=== PATIENT | male | born 1995 | race African-American/Black ===

== ENCOUNTER 2020-11-30 04:30 | Inpatient (IN) | payer OTHER, MEDICAID, SELFPAY ==
--- NOTE | 2020-11-30 06:38 | ED.PSYCH ---
HPI - Psych General Chief Complaint: Psychiatric Symptoms <Francisco Silva MD - Last Filed: 11/30/20 06:48> Stated Complaint: CRISIS <Francisco Silva MD - Last Filed: 11/30/20 06:48> Time Seen by Provider: 11/30/20 06:38 <Francisco Silva MD - Last Filed: 11/30/20 06:48> Source: patient <Francisco Silva MD - Last Filed: 11/30/20 06:48> Mode of arrival: EMS <Francisco Silva MD - Last Filed: 11/30/20 06:48> Limitations: no limitations <Francisco Silva MD - Last Filed: 11/30/20 06:48> History of Present Illness HPI Narrative: Patient feeling increasingly manic and had an outburst and started breaking things at home. Denies suicidal ideation, denies homicidal ideation, no visual or auditory hallucinations. Patient has a diagnosis of bipolar and has been admitted before. <Francisco Silva MD - Last Filed: 11/30/20 06:48> MD complaint: feels depressed <Francisco Silva MD - Last Filed: 11/30/20 06:48> Onset (ago): day(s) <Francisco Silva MD - Last Filed: 11/30/20 06:48> Duration: constant <Francisco Silva MD - Last Filed: 11/30/20 06:48> History of same: Yes <Francisco Silva MD - Last Filed: 11/30/20 06:48> Related Data Home Medications: Home Medications Medication Instructions Recorded Confirmed clonidine HCl 0.1 mg PO BEDTIME PRN 11/30/20 11/30/20 divalproex [Depakote ER] 500 mg PO BID 11/30/20 11/30/20 hydroxyzine HCl 25 mg PO BEDTIME PRN 11/30/20 11/30/20 risperidone 0.5 mg PO BID 11/30/20 11/30/20 <Francisco Silva MD - Last Filed: 11/30/20 06:48> Allergies/Adverse Reactions: Allergies Allergy/AdvReac Type Severity Reaction Status Date / Time egg [EGG] AdvReac Mild UPSET Verified 11/30/20 06:46 STOMACH <Francisco Silva MD - Last Filed: 11/30/20 06:48> Review of Systems Constitutional: Constitutional: Reports no additional constitutional complaints <Francisco Silva MD - Last Filed: 11/30/20 06:48> Eyes: Eyes: Reports no additional eye complaints <Francisco Silva MD - Last Filed: 11/30/20 06:48> ENT: Denies dizziness <Francisco Silva MD - Last Filed: 11/30/20 06:48> Cardiovascular: Cardiovascular: Reports no additional cardiovascular complaints <Francisco Silva MD - Last Filed: 11/30/20 06:48> Respiratory: Respiratory: Reports as per HPI <Francisco Silva MD - Last Filed: 11/30/20 06:48> Gastrointestinal: Gastrointestinal: Reports no additional gastrointestinal complaints <Francisco Silva MD - Last Filed: 11/30/20 06:48> Musculoskeletal: Musculoskeletal: Reports no additional musculoskeletal complaints <Francisco Silva MD - Last Filed: 11/30/20 06:48> Integumentary/Breasts: Skin/Breast: Denies rash <Francisco Silva MD - Last Filed: 11/30/20 06:48> Neurologic: Reports system reviewed and no additional complaints, except as documented, Denies dizziness and Denies Sensory deficit (Neuro) <Francisco Silva MD - Last Filed: 11/30/20 06:48> Psychiatric: Psychiatric: Denies anxiety <Francisco Silva MD - Last Filed: 11/30/20 06:48> [facility] Past Medical History Medical History: Medical History (Updated 11/30/20 @ 06:47 by Maris Hogan) Asthma Bipolar 1 disorder <Francisco Silva MD - Last Filed: 11/30/20 06:48> Surgical History: Surgical History (Updated 11/30/20 @ 06:45 by Maris Hogan) No significant past surgical history <Francisco Silva MD - Last Filed: 11/30/20 06:48> Social History Social History: Social History Alcohol intake: never Smoking Status: Never smoker Use of substances other than those prescribed or required for medical reasons: Yes Substance Use Type: Crack/Cocaine and Marijuana Substance Use Frequency: Occasionally Last Used Substance: Days (ago) Any prior treatment program specific to substance use: No Advance Directives: No <Francisco Silva MD - Last Filed: 11/30/20 06:48> Physical Exam Vital Signs: Vital Signs: Last Vital Signs Temp 97.8 F 12/01/20 08:26 Pulse 85 12/01/20 08:26 Resp 18 12/01/20 06:43 BP 140/89 H 12/01/20 08:26 Pulse Ox 98 12/01/20 08:26 Body Mass Index 27.1 <Francisco Silva MD - Last Filed: 11/30/20 06:48> Vital Signs: Last Vital Signs Temp 97.8 F 12/01/20 08:26 Pulse 85 12/01/20 08:26 Resp 18 12/01/20 06:43 BP 140/89 H 12/01/20 08:26 Pulse Ox 98 12/01/20 08:26 Body Mass Index 27.1 <Clive Dye NP - Last Filed: 12/01/20 08:34> Const: General: healthy appearing <Francisco Silva MD - Last Filed: 11/30/20 06:48> Nutritional Appearance: average body habitus <Francisco Silva MD - Last Filed: 11/30/20 06:48> Orientation/consciousness: oriented to person and patient oriented x3 <Francisco Silva MD - Last Filed: 11/30/20 06:48> Limitations: no limitations <Francisco Silva MD - Last Filed: 11/30/20 06:48> HENMT: Head: Yes normal to inspection <Francisco Silva MD - Last Filed: 11/30/20 06:48> Ears: external ears normal <Francisco Silva MD - Last Filed: 11/30/20 06:48> General nose exam: Normal external nose present <Francisco Silva MD - Last Filed: 11/30/20 06:48> Mouth: Normal oral and palatal mucosa present and oropharynx normal <Francisco Silva MD - Last Filed: 11/30/20 06:48> Throat: Yes posterior oropharynx normal <Francisco Silva MD - Last Filed: 11/30/20 06:48> Eyes: General: appearance normal, both eyes and all related structures <Francisco Silva MD - Last Filed: 11/30/20 06:48> Neck: Other: supple <Francisco Silva MD - Last Filed: 11/30/20 06:48> Neck: Yes normal visual inspection <Francisco Silva MD - Last Filed: 11/30/20 06:48> Chest: Chest palpation & inspection: normal inspection of the chest <Francisco Silva MD - Last Filed: 11/30/20 06:48> Resp: Auscultation: clear to auscultation bilaterally <Francisco Silva MD - Last Filed: 11/30/20 06:48> Cardio: Jugular venous distension: no JVD <Francisco Silva MD - Last Filed: 11/30/20 06:48> Rate: regular rate <Francisco Silva MD - Last Filed: 11/30/20 06:48> Rhythm: regular rhythm <Francisco Silva MD - Last Filed: 11/30/20 06:48> Heart sounds: S1 normal heart sound present and S2 normal heart sound present <Francisco Silva MD - Last Filed: 11/30/20 06:48> GI: Inspection: Yes normal to inspection <Francisco Silva MD - Last Filed: 11/30/20 06:48> Palpation (GI): Soft to palpation, nontender and No hepatosplenomegaly present <Francisco Silva MD - Last Filed: 11/30/20 06:48> Auscultation: normal bowel sounds <Francisco Silva MD - Last Filed: 11/30/20 06:48> : General: Yes no CVA tenderness <Francisco Silva MD - Last Filed: 11/30/20 06:48> Back/Spine/Pelvis: Back: no CVA tenderness <Francisco Silva MD - Last Filed: 11/30/20 06:48> Skin: General skin exam: no rashes or lesions noted <Francisco Silva MD - Last Filed: 11/30/20 06:48> Neuro: General: oriented to person and patient oriented x3 <Francisco Silva MD - Last Filed: 11/30/20 06:48> Cranial nerves: Yes CN's II-XII intact bilaterally <Francisco Silva MD - Last Filed: 11/30/20 06:48> Motor exam (neuro): 5/5 motor strength present throughout <Francisco Silva MD - Last Filed: 11/30/20 06:48> Sensory Exam: No Sensory deficit (Neuro) <Francisco Silva MD - Last Filed: 11/30/20 06:48> Extrem: General: Yes normal to inspection <Francisco Silva MD - Last Filed: 11/30/20 06:48> Psych: Appearance: grossly normal <Francisco Silva MD - Last Filed: 11/30/20 06:48> Course Course Course Narrative: 12/01/2020 0832 Slept over night w/o event up this morning eating breakfast w/o complaints. Plan: bed search remains in progress <Clive Dye NP - Last Filed: 12/01/20 08:34> MDM - Psych Restraints Face to Face Assessment: Face to Face Assessment: Current Situation: After assessment of the patient, a review of the pertinent medical record and a discussion with nursing staff, I feel the patient requires a restrain intervention. Reaction To: [] Medical Condition: [] Behavioral State: [] Continued Need: [] <Francisco Silva MD - Last Filed: 11/30/20 06:48> Lab Data Result diagrams: : 11/30/20 08:43 11/30/20 08:43 <Francisco Silva MD - Last Filed: 11/30/20 06:48> Labs: Lab Results 11/30/20 11/30/20 11/30/20 Range/Units 06:49 08:43 08:43 WBC 9.5 (4.8-10.8) X10*3/uL RBC 5.44 (4.60-5.80) X10*6/uL Hgb 15.2 (14.0-18.0) g/dl Hct 44.2 (42-52) % MCV 81.3 (80-98) fL MCH 27.9 (27.0-33.0) pg MCHC 34.4 (31.0-36.0) g/dl RDW 13.2 (11.0-16.0) % Plt Count 220 (160-400) X10*3/uL MPV 10.6 (9.4-12.4) fL Immature Gran % (Auto) 0.3 (0.0-0.4) % Neut % (Auto) 61.2 (45-73) % Lymph % (Auto) 31.7 (20-40) % Starke % (Auto) 5.5 (2-11) % Eos % (Auto) 1.1 (0-4) % Baso % (Auto) 0.2 (0-2) % Lymph # (Auto) 3.0 (1.2-4.9) X10*3/uL Starke # (Auto) 0.5 (0.1-1.2) X10*3/uL Eos # (Auto) 0.1 (0.0-0.4) X10*3/uL Baso # (Auto) 0.0 (0.0-0.2) X10*3/uL Abs Immat Gran (auto) 0.03 (0.00-0.03) X10*3/uL Absolute Neuts (auto) 5.8 (2.0-8.3) X10*3/uL Absolute Nucleated RBC 0.000 (0.0-0.012) X10*3/uL Nucleated RBC % (auto) 0.0 (0.0-0.2) /100WBC Sodium 138 (135-145) mmol/L Potassium 4.1 (3.3-5.1) mmol/l Chloride 102 (96-108) mmol/L Carbon Dioxide 28 (22-29) mmol/L Anion Gap 12 (12-20) BUN 11 (9-16) mg/dL Creatinine 1.13 (0.5-1.4) mg/dL Estim Creat Clear Calc 111.5 Estimated GFR > 60 Random Glucose 111 (60-115) mg/dL Calcium 9.1 (8.4-10.2) mg/dL Salicylates (15-30) mg/dL Urine Opiates Screen Not Detected (Not Detect) Acetaminophen < 1 (<30) mcg/mL Ur Barbiturates Screen Not Detected (Not Detect) Ur Phencyclidine Scrn Not Detected (Not Detect) Ur Amphetamines Screen Not Detected (Not Detect) U Benzodiazepines Scrn Not Detected (Not Detect) Urine Cocaine Screen POSITIVE H (Not Detect) U Marijuana (THC) Screen POSITIVE H (Not Detect) Ethyl Alcohol mg/dL COVID-19 ([facility]) (Negative) COVID-19 Clin Com 11/30/20 11/30/20 11/30/20 Range/Units 08:43 08:43 11:52 WBC (4.8-10.8) X10*3/uL RBC (4.60-5.80) X10*6/uL Hgb (14.0-18.0) g/dl Hct (42-52) % MCV (80-98) fL MCH (27.0-33.0) pg MCHC (31.0-36.0) g/dl RDW (11.0-16.0) % Plt Count (160-400) X10*3/uL MPV (9.4-12.4) fL Immature Gran % (Auto) (0.0-0.4) % Neut % (Auto) (45-73) % Lymph % (Auto) (20-40) % Starke % (Auto) (2-11) % Eos % (Auto) (0-4) % Baso % (Auto) (0-2) % Lymph # (Auto) (1.2-4.9) X10*3/uL Starke # (Auto) (0.1-1.2) X10*3/uL Eos # (Auto) (0.0-0.4) X10*3/uL Baso # (Auto) (0.0-0.2) X10*3/uL Abs Immat Gran (auto) (0.00-0.03) X10*3/uL Absolute Neuts (auto) (2.0-8.3) X10*3/uL Absolute Nucleated RBC (0.0-0.012) X10*3/uL Nucleated RBC % (auto) (0.0-0.2) /100WBC Sodium (135-145) mmol/L Potassium (3.3-5.1) mmol/l Chloride (96-108) mmol/L Carbon Dioxide (22-29) mmol/L Anion Gap (12-20) BUN (9-16) mg/dL Creatinine (0.5-1.4) mg/dL Estim Creat Clear Calc Estimated GFR Random Glucose (60-115) mg/dL Calcium (8.4-10.2) mg/dL Salicylates < 5.0 L (15-30) mg/dL Urine Opiates Screen (Not Detect) Acetaminophen (<30) mcg/mL Ur Barbiturates Screen (Not Detect) Ur Phencyclidine Scrn (Not Detect) Ur Amphetamines Screen (Not Detect) U Benzodiazepines Scrn (Not Detect) Urine Cocaine Screen (Not Detect) U Marijuana (THC) Screen (Not Detect) Ethyl Alcohol < 10 mg/dL COVID-19 ([facility]) Negative (Negative) COVID-19 Clin Com See Note <Francisco Silva MD - Last Filed: 11/30/20 06:48> Lab Results 11/30/20 11/30/20 11/30/20 Range/Units 06:49 08:43 08:43 WBC 9.5 (4.8-10.8) X10*3/uL RBC 5.44 (4.60-5.80) X10*6/uL Hgb 15.2 (14.0-18.0) g/dl Hct 44.2 (42-52) % MCV 81.3 (80-98) fL MCH 27.9 (27.0-33.0) pg MCHC 34.4 (31.0-36.0) g/dl RDW 13.2 (11.0-16.0) % Plt Count 220 (160-400) X10*3/uL MPV 10.6 (9.4-12.4) fL Immature Gran % (Auto) 0.3 (0.0-0.4) % Neut % (Auto) 61.2 (45-73) % Lymph % (Auto) 31.7 (20-40) % Starke % (Auto) 5.5 (2-11) % Eos % (Auto) 1.1 (0-4) % Baso % (Auto) 0.2 (0-2) % Lymph # (Auto) 3.0 (1.2-4.9) X10*3/uL Starke # (Auto) 0.5 (0.1-1.2) X10*3/uL Eos # (Auto) 0.1 (0.0-0.4) X10*3/uL Baso # (Auto) 0.0 (0.0-0.2) X10*3/uL Abs Immat Gran (auto) 0.03 (0.00-0.03) X10*3/uL Absolute Neuts (auto) 5.8 (2.0-8.3) X10*3/uL Absolute Nucleated RBC 0.000 (0.0-0.012) X10*3/uL Nucleated RBC % (auto) 0.0 (0.0-0.2) /100WBC Sodium 138 (135-145) mmol/L Potassium 4.1 (3.3-5.1) mmol/l Chloride 102 (96-108) mmol/L Carbon Dioxide 28 (22-29) mmol/L Anion Gap 12 (12-20) BUN 11 (9-16) mg/dL Creatinine 1.13 (0.5-1.4) mg/dL Estim Creat Clear Calc 111.5 Estimated GFR > 60 Random Glucose 111 (60-115) mg/dL Calcium 9.1 (8.4-10.2) mg/dL Salicylates (15-30) mg/dL Urine Opiates Screen Not Detected (Not Detect) Acetaminophen < 1 (<30) mcg/mL Ur Barbiturates Screen Not Detected (Not Detect) Ur Phencyclidine Scrn Not Detected (Not Detect) Ur Amphetamines Screen Not Detected (Not Detect) U Benzodiazepines Scrn Not Detected (Not Detect) Urine Cocaine Screen POSITIVE H (Not Detect) U Marijuana (THC) Screen POSITIVE H (Not Detect) Ethyl Alcohol mg/dL COVID-19 ([facility]) (Negative) COVID-19 Clin Com 11/30/20 11/30/20 11/30/20 Range/Units 08:43 08:43 11:52 WBC (4.8-10.8) X10*3/uL RBC (4.60-5.80) X10*6/uL Hgb (14.0-18.0) g/dl Hct (42-52) % MCV (80-98) fL MCH (27.0-33.0) pg MCHC (31.0-36.0) g/dl RDW (11.0-16.0) % Plt Count (160-400) X10*3/uL MPV (9.4-12.4) fL Immature Gran % (Auto) (0.0-0.4) % Neut % (Auto) (45-73) % Lymph % (Auto) (20-40) % Starke % (Auto) (2-11) % Eos % (Auto) (0-4) % Baso % (Auto) (0-2) % Lymph # (Auto) (1.2-4.9) X10*3/uL Starke # (Auto) (0.1-1.2) X10*3/uL Eos # (Auto) (0.0-0.4) X10*3/uL Baso # (Auto) (0.0-0.2) X10*3/uL Abs Immat Gran (auto) (0.00-0.03) X10*3/uL Absolute Neuts (auto) (2.0-8.3) X10*3/uL Absolute Nucleated RBC (0.0-0.012) X10*3/uL Nucleated RBC % (auto) (0.0-0.2) /100WBC Sodium (135-145) mmol/L Potassium (3.3-5.1) mmol/l Chloride (96-108) mmol/L Carbon Dioxide (22-29) mmol/L Anion Gap (12-20) BUN (9-16) mg/dL Creatinine (0.5-1.4) mg/dL Estim Creat Clear Calc Estimated GFR Random Glucose (60-115) mg/dL Calcium (8.4-10.2) mg/dL Salicylates < 5.0 L (15-30) mg/dL Urine Opiates Screen (Not Detect) Acetaminophen (<30) mcg/mL Ur Barbiturates Screen (Not Detect) Ur Phencyclidine Scrn (Not Detect) Ur Amphetamines Screen (Not Detect) U Benzodiazepines Scrn (Not Detect) Urine Cocaine Screen (Not Detect) U Marijuana (THC) Screen (Not Detect) Ethyl Alcohol < 10 mg/dL COVID-19 ([facility]) Negative (Negative) COVID-19 Clin Com See Note <Clive Dye NP - Last Filed: 12/01/20 08:34> Discharge Plan Discharge Prescriptions: No Action clonidine HCl 0.1 mg Tablet 0.1 mg PO BEDTIME PRN (Reason: Agitation) RF: 0 divalproex [Depakote ER] 500 mg Tablet Extended Release 24 Hr 500 mg PO BID RF: 0 hydroxyzine HCl 25 mg Tablet 25 mg PO BEDTIME PRN (Reason: Agitation) RF: 0 risperidone 0.5 mg Tablet 0.5 mg PO BID RF: 0 <Francisco Silva MD - Last Filed: 11/30/20 06:48>
[2020-11-30 06:40] VITALS: BP 138/82; PULSE 91; RESP 16; TEMP 36.1; O2SAT 98; BMI 27.1
[2020-11-30 07:07] LABS: Amphetamine Screen Urine Not Detected (Not Detect); Barbiturates, Urine Not Detected (Not Detect); Benzodiazepines Screen Urine Not Detected (Not Detect); Cannabinoid Screen Urine POSITIVE (Not Detect); Cocaine Screen Urine POSITIVE (Not Detect); Opiate Screen Urine Not Detected (Not Detect); Phencyclidine Screen Urine Not Detected (Not Detect)
--- NOTE | 2020-11-30 08:27 | PC.NURSE ---
pt is engaged approp conversation with staff. he has eaten breakfast and is awaiting n
[2020-11-30 08:51] LABS: MANUAL DIFF FLAG NO
[2020-11-30 08:53] LABS: Basophils Percent Auto 0.2 % (0-2); Eosinophils Absolute Auto 0.1 X10*3/uL (0.0-0.4); Eosinophils Percent Auto 1.1 % (0-4); Hematocrit 44.2 % (42-52); Hemoglobin 15.2 g/dl (14.0-18.0); Imm Gran Abs Auto 0.03 X10*3/uL (0.00-0.03); Imm Gran Pct Auto 0.3 % (0.0-0.4); Lymphocytes Percent Auto 31.7 % (20-40); Mean Corpuscular HGB Conc 34.4 g/dl (31.0-36.0); Mean Corpuscular Hemoglobin 27.9 pg (27.0-33.0); Mean Corpuscular Volume 81.3 fL (80-98); Mean Platelet Volume 10.6 fL (9.4-12.4); Monocytes Absolute Auto 0.5 X10*3/uL (0.1-1.2); Monocytes Percent Auto 5.5 % (2-11); Neutrophils Absolute Auto 5.8 X10*3/uL (2.0-8.3); Neutrophils Percent Auto 61.2 % (45-73); Platelet Count 220 X10*3/uL (160-400); Red Blood Count 5.44 X10*6/uL (4.60-5.80); Red Cell Distribution Width 13.2 % (11.0-16.0); White Blood Count 9.5 X10*3/uL (4.8-10.8)
[2020-11-30 09:19] LABS: Ethanol < 10 mg/dL
[2020-11-30 09:22] LABS: Salicylate < 5.0 mg/dL (15-30)
[2020-11-30 09:23] LABS: Anion Gap 12 (12-20); Blood Urea Nitrogen 11 mg/dL (9-16); Calcium 9.1 mg/dL (8.4-10.2); Carbon Dioxide 28 mmol/L (22-29); Chloride 102 mmol/L (96-108); Creatinine Clr Calc Pharmacy 111.5; Estimated Glomerular Filt Rate > 60; Glucose Random 111 mg/dL (60-115); Potassium 4.1 mmol/l (3.3-5.1); Sodium 138 mmol/L (135-145)
[2020-11-30 09:53] LABS: Acetaminophen LAB < 1 mcg/mL (<30)
[2020-11-30 12:00] VITALS: RESP 16
--- NOTE | 2020-11-30 12:12 | MHC.CARE ---
Call to [facility], spoke to Koby, they are unaware of patient, advised CARE can see patient if they cannot. Julissa stated she when the fax comes he will be assigned. Spoke to RN, he said N did call and follow up with him about patient.
[2020-11-30 12:35] LABS: COVID-19 Test Negative (Negative)
[2020-11-30 14:00] VITALS: RESP 16
--- NOTE | 2020-11-30 16:31 | MHC.CARE ---
Call to N to ask about clinician availability for assessing this patient, said that none are available for some time so advised that a CARE human geography faculty member would meet with patient, N to call insurance company to notify and call us back. CARE Team met with patient and after speaking to family/partner and gathering additional information, the disposition will be for inpatient hospitalization. Spoke to RN about moving patient into POD, CARE Team will update patient.
[2020-11-30] MEDS: risperiDONE 0.5 MG TABLET PO ×2 (16:38→20:37)
[2020-11-30] MEDS: Divalproex Sodium ER 500 MG TAB.ER.24H PO ×2 (16:38→20:37)
--- NOTE | 2020-11-30 17:07 | PC.NURSE ---
Report recieved. Pt ambulated to pod with steady gait, denies complaints at this time.
--- NOTE | 2020-11-30 19:06 | PC.NURSE ---
Report received. PT is using the phone. Calm and cooperative. PT is inpatient bed search.
[2020-11-30] MEDS: hydrOXYzine HCL 25 MG TABLET PO (20:36)
[2020-11-30 20:37] VITALS: BP 141/91; PULSE 95
[2020-11-30] MEDS: cloNIDine HCL 0.1 MG TABLET PO (20:37)
--- NOTE | 2020-12-01 | ECG_ITS ---
Test Reason : CLEARANCE Blood Pressure : / mmHG Vent. Rate : 095 BPM Atrial Rate : 095 BPM P-R Int : 138 ms QRS Dur : 092 ms QT Int : 352 ms P-R-T Axes : 084 061 058 degrees QTc Int : 442 ms Normal sinus rhythm Possible Left atrial enlargement Borderline ECG When compared with ECG of 13-JUL-2020 14:46, No significant change was found Referred By: Alec Cabrera Electronically Signed By:LINDSEY HER
[2020-12-01] MEDS: Ibuprofen 400 MG TABLET PO (04:10)
[2020-12-01 06:09] VITALS: BP 136/85; PULSE 98; RESP 16; TEMP 36.6; O2SAT 100
[2020-12-01 06:43] VITALS: BP 131/67; PULSE 103; RESP 18; TEMP 36.3; O2SAT 94
--- NOTE | 2020-12-01 07:05 | PC.NURSE ---
report taken from jackson leslie pt up to use telephone, appears calm and cooperative. per previous shift rn, no manic behavior noted since arrival to pod. pt expresses excitement for todays presidential inauguration. plan for inpt bed search.
[2020-12-01] MEDS: Divalproex Sodium ER 500 MG TAB.ER.24H PO (08:18)
[2020-12-01] MEDS: risperiDONE 0.5 MG TABLET PO (08:18)
[2020-12-01 08:26] VITALS: BP 140/89; PULSE 85; TEMP 36.6; O2SAT 98
--- NOTE | 2020-12-01 09:15 | PC.NURSE ---
pt asking to speak w clinician, per [facility] pt is being seen by the care team. care team contacted to see pt.
--- NOTE | 2020-12-01 10:49 | MHC.CARE ---
Spoke to patient in [facility]. Gave him update that there are no beds on or in other hospitals at this time. He is not held on a Section 12A because there is no imminent risk of harm but inpatient is recommended to avoid continued decompensation that can lead to someone getting hurt. Patient stated that he agrees that his medications need to be adjusted and is open to staying another day. CARE Team will reach out to patient's prescriber today. Depakote level to be checked.
[2020-12-01 12:01] LABS: Valproate 37.9 mcg/mL (50.0-100.0)
--- NOTE | 2020-12-01 15:09 | PC.NURSE ---
Report received. Pt watching TV in the common area. Calm and cooperative.
--- NOTE | 2020-12-01 16:56 | PC.NURSE ---
Pt currently watching TV in the common area. Calm and cooperative. No complaints at this time.
--- NOTE | 2020-12-01 17:46 | PC.NURSE ---
Pt reports he no longer wants to go to [facility]. Leslee from CARE team notified.
--- NOTE | 2020-12-01 18:21 | PC.NURSE ---
Pt spoke with CARE team and provider, and is agreeable to staying.
[2020-12-01 18:40] VITALS: BP 148/88; PULSE 94; RESP 20; TEMP 36.9; O2SAT 98
[2020-12-01] MEDS: risperiDONE 1 MG TABLET PO (22:04)
[2020-12-01] MEDS: Divalproex Sodium 500 MG TABLET.DR PO (22:04)
[2020-12-01] MEDS: traZODone HCL 50 MG TABLET PO (22:04)
[2020-12-02] MEDS: risperiDONE 1 MG TABLET PO ×3 (01:32→20:57)
[2020-12-02] MEDS: traZODone HCL 50 MG TABLET PO (01:33)
[2020-12-02 06:30] VITALS: BP 110/63; PULSE 76; RESP 16; TEMP 37; O2SAT 98
[2020-12-02 07:00] VITALS: BMI 29.5
[2020-12-02] MEDS: Divalproex Sodium 500 MG TABLET.DR PO (08:50)
[2020-12-02 09:10] LABS: Cholesterol 99 mg/dL; HDL Cholesterol 34 mg/dL; LDL Cholesterol Calculated 46 mg/dl; Triglycerides 98 mg/dL
[2020-12-02 09:30] LABS: Thyroid Stimulating Hormone 0.37 uIU/mL (0.32-4.0)
[2020-12-02 10:28] LABS: Folate 18.8 ng/mL (> or = 4.0); Vitamin B12 606 pg/mL (200-900)
--- NOTE | 2020-12-02 13:27 | P.HPPS_ITS ---
HPI Chief Complaint: MANIC EPISODE Sources of Information: patient interviewed, chart reviewed and crisis/core team assessment reviewed HPI Narrative: Mr. Fung is a 25 year-old male with hx of cocaine use, Bipolar Disorder versus cocaine induced mood disorder who self presented to [facility] ED reporting feeling increasingly manic, taking things too seriously, losing control and breaking things. He denied suicidal or homicidal ideation but reported that he was worried he couldn't control himself and either hurt someone or end up back in [place] [facility]. He is currently on probation. In the ED, his utox was positive for cocaine. Per crisis report, his partner of about one year reports that most recently patient has been exhibiting more explosive behaviors, breaking things at home. On the unit, pt initially presents as calmer but as conversation went on patient increasingly more irritable when he asked to be prescribed a stimulant (adderal or vyvanse) and this underwriter mortgage loan explained focusing on irritability, mood dysregulation and explosive behavior. We also discussed concern of potential misuse or abuse of stimulant given that drug of choice is cocaine. Pt denied suicidal or homicidal ideation. Pt minimized his use of cocaine in terms of effects that it's having on his mental health and relationships. He reports not sleeping for the past 3-4 days. Past Psychiatric History: Inpatient admissions: two admission at ;07/2020 OP: [facility] but unclear if active client as he reports not going regularly. Suicide attempts: none Past medication trials: risperidone, depakote, clonidine Medical Evaluation Reviewed: Yes [facility] Medical History Asthma Bipolar 1 disorder Surgical History No significant past surgical history Family History: none Social History: Pt has older sister. No children. He completed college level classes. 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 He has a partner of 1.5years. Substance History: Cocaine: 2 x weekly Trauma History: per record, emotional/sexual, but unclear details. Diagnostics Vital Signs (24Hr): Vital Signs - 24 hr 12/01/20 18:40 12/02/20 06:30 Temperature 98.5 F 98.6 F Pulse Rate 94 76 Respiratory Rate 20 16 Blood Pressure 148/88 H 110/63 Pulse Oximetry 98 98 Body Mass Index 27.1 Labs Results: 11/30/20 08:43 11/30/20 08:43 Labs: Laboratory Results - last 48 hr 12/01/20 12/02/20 12/02/20 11:09 08:04 08:04 Triglycerides 98 Cholesterol 99 LDL Cholesterol, Calc 46 HDL Cholesterol 34 Vitamin B12 606 Folate 18.8 TSH 0.37 Valproic Acid 37.9 L Meds/Allergies Meds Home Medications Acetaminophen (Acetaminophen 325 Mg Tablet) 650 mg PO Q6H PRN PRN Reason: Headache/Pain Mild Scale (1-3) Al Hydroxide/Mg Hydroxide (Magnesium Hydrox/Alum Hydrox 30 Ml Oral.Susp) 30 ml PO Q6H PRN PRN Reason: Heartburn/Nausea Divalproex Sodium (Divalproex Sodium 500 Mg Tablet.Dr) 500 mg PO BID [facility] Last Admin: 12/02/20 08:50 Dose: 500 mg Documented by: Magnesium Hydroxide (Milk Of Magnesia 30 Ml Oral.Susp) 30 ml PO DAILY PRN PRN Reason: Constipation Risperidone (Risperidone 1 Mg Tablet) 1 mg PO BID [facility] Last Admin: 12/02/20 08:50 Dose: 1 mg Documented by: Risperidone (Risperidone 1 Mg Tablet) 1 mg PO Q6H PRN PRN Reason: agitation/psychosis Last Admin: 12/02/20 01:32 Dose: 1 mg Documented by: Trazodone HCl (Trazodone Hcl 50 Mg Tablet) 50 mg PO BEDTIME PRN PRN Reason: Insomnia Last Admin: 12/02/20 01:33 Dose: 50 mg Documented by: Allergies Allergies Allergy/AdvReac Type Severity Reaction Status Date / Time egg [EGG] AdvReac Mild UPSET Verified 11/30/20 06:46 STOMACH Mental Status Exam Mental Status Exam Narrative: Appearance: wearing hospital gown, fair hygiene, lying in bed, in NAD behavior: increasingly more irritable when tolod no stimulant will be prescribed Speech: clear, normal rate/rhythm/volume, spontaneous TP: linear TC: no signs of psychosis, wanting stimulant, minimizing effects of cocaine use Mood: disappointed Affect: irritable/explosive AH/VH: none Delusions: none Insight/judgment: poor x 2. Memory/cog: alert, oriented x 3. Grossly intact to conversational testing. Assessment & Plan Assessment & Plan (1) Cocaine use disorder: Status: Acute Code(s): F14.10 - Cocaine abuse, uncomplicated Assessment and Plan: 1. Discussed aftercare treatment, substance use treatment programs. (2) Bipolar disorder: Status: Acute Qualifiers: Active/Remission status: currently active Current bipolar episode type: mixed Current episode severity: unspecified Qualified Code(s): F31.60 - Bipolar disorder, current episode mixed, unspecified Code(s): F31.9 - Bipolar disorder, unspecified Assessment and Plan: 1. Increase depakote to 1000mg po qhs and 500mg po daily 2. continue risperidone 1mg po BID
[2020-12-02] MEDS: Flu Vacc QS2020-21(6mos up)/PF 0.5 ML SYRINGE IM (13:46)
[2020-12-02 18:00] VITALS: BP 134/74; PULSE 104; TEMP 36.9
[2020-12-02] MEDS: Divalproex Sodium 500 MG TABLET.DR 1000 MG PO (20:57)
[2020-12-02] MEDS: traZODone HCL 100 MG TABLET PO (23:06)
[2020-12-03 06:35] VITALS: BP 118/55; PULSE 82; RESP 16; TEMP 35.8; O2SAT 98
[2020-12-03 08:16] VITALS: BP 118/55; PULSE 82; RESP 16; TEMP 35.8; O2SAT 98
[2020-12-03] MEDS: risperiDONE 1 MG TABLET PO ×2 (08:49→20:38)
[2020-12-03] MEDS: Divalproex Sodium 500 MG TABLET.DR PO (08:49)
--- NOTE | 2020-12-03 15:05 | HO.PSYCHPN ---
Subjective Subjective Date of Service: 12/03/20 Reason For Visit: MANIC EPISODE Subjective Notes: Conditional Voluntary Interim History: Pt reports feeling calmer today. he reports not feeling as explosive as prior to coming to the hospital. He reports his sleep is improving and able to get at least 5hrs. He denies suicidal or homicidal ideation. He reports talking consistently with his partner but not with his mom. He denies VH/AH. Pt appears slightly calmer Medication Compliance: Yes Side effects from medications: No Attending Groups: No Review of Systems Denies dizziness Reports system reviewed and no additional complaints, except as documented, Denies dizziness and Denies Sensory deficit (Neuro) Mental Status Exam Mental Status Exam Narrative: Appearance: wearing hospital gown, fair hygiene, lying in bed, in NAD behavior: calmer, more cooperatibe Speech: clear, normal rate/rhythm/volume, spontaneous TP: linear TC: no signs of psychosis, wanting stimulant, minimizing effects of cocaine use Mood: better Affect: calmer AH/VH: none Delusions: none Insight/judgment: improving. Memory/cog: alert, oriented x 3. Grossly intact to conversational testing. Diagnostics Vital Signs (24Hr): Vital Signs - 24 hr 12/02/20 18:00 12/03/20 06:35 12/03/20 08:16 Temperature 98.4 F 96.4 F L 96.4 F L Pulse Rate 104 H 82 82 Respiratory Rate 16 16 Blood Pressure 134/74 118/55 L 118/55 L Pulse Oximetry 98 98 Body Mass Index 29.5 Labs Results: 11/30/20 08:43 11/30/20 08:43 Labs: Laboratory Results - last 48 hr 12/02/20 12/02/20 08:04 08:04 Triglycerides 98 Cholesterol 99 LDL Cholesterol, Calc 46 HDL Cholesterol 34 Vitamin B12 606 Folate 18.8 TSH 0.37 Medications Medications Current Medications Generic Name Dose Route Start Last Admin Trade Name Freq PRN Reason Stop Dose Admin Acetaminophen 650 mg 12/01/20 19:19 Acetaminophen 325 Mg Tablet PO Q6H PRN Headache/Pain Mild Scale (1-3) Al Hydroxide/Mg Hydroxide 30 ml 12/01/20 19:19 Magnesium Hydrox/Alum Hydrox 30 Ml Oral.Susp PO Q6H PRN Heartburn/Nausea Divalproex Sodium 500 mg 12/03/20 09:00 12/03/20 08:49 Divalproex Sodium 500 Mg Tablet. PO 500 mg DAILY RAY Administration Divalproex Sodium 1,000 mg 12/02/20 21:00 12/02/20 20:57 Divalproex Sodium 500 Mg Tablet. PO 1,000 mg BEDTIME RAY Administration Magnesium Hydroxide 30 ml 12/01/20 19:19 Milk Of Magnesia 30 Ml Oral.Susp PO DAILY PRN Constipation Risperidone 1 mg 12/01/20 21:00 12/03/20 08:49 Risperidone 1 Mg Tablet PO 1 mg BID RAY Administration Risperidone 1 mg 12/01/20 19:29 12/02/20 01:32 Risperidone 1 Mg Tablet PO 1 mg Q6H PRN Administration agitation/psychosis Trazodone HCl 100 mg 12/02/20 14:47 12/02/20 23:06 Trazodone Hcl 100 Mg Tablet PO 100 mg BEDTIME PRN Administration sleep Allergies Allergies Allergy/AdvReac Type Severity Reaction Status Date / Time egg [EGG] AdvReac Mild UPSET Verified 11/30/20 06:46 STOMACH Assessment & Plan Assessment & Plan (1) Cocaine use disorder: Status: Acute Code(s): F14.10 - Cocaine abuse, uncomplicated Assessment and Plan: 1. Discussed aftercare treatment, substance use treatment programs. (2) Bipolar disorder: Qualifiers: Active/Remission status: currently active Current bipolar episode type: mixed Current episode severity: unspecified Qualified Code(s): F31.60 - Bipolar disorder, current episode mixed, unspecified Status: Acute Code(s): F31.9 - Bipolar disorder, unspecified Assessment and Plan: 1. Continue depakote to 1000mg po qhs and 500mg po daily 2. continue risperidone 1mg po BID 3. Check depakote level on 12/06/2020 Greater than 50% of the session was spent on counseling and/or coordination of care
[2020-12-03 18:00] VITALS: BP 114/56; PULSE 114; TEMP 37.1
[2020-12-03] MEDS: Divalproex Sodium 500 MG TABLET.DR 1000 MG PO (20:38)
[2020-12-03] MEDS: traZODone HCL 100 MG TABLET PO (23:04)
[2020-12-04 06:25] VITALS: BP 125/60; PULSE 76; RESP 16; TEMP 36.4; O2SAT 98
[2020-12-04] MEDS: risperiDONE 1 MG TABLET PO ×2 (08:20→20:24)
[2020-12-04] MEDS: Divalproex Sodium 500 MG TABLET.DR PO (08:20)
--- NOTE | 2020-12-04 14:46 | HO.PSYCHPN ---
Subjective Subjective Date of Service: 12/04/20 Reason For Visit: MANIC EPISODE Interim History: Pt continues to report feeling calmer today. he reports not feeling as explosive as prior to coming to the hospital. He reports his sleep is improving and able to get at least 5hrs. He denies suicidal or homicidal ideation. He reports talking consistently with his partner but not with his mom. He denies VH/AH. Pt appears slightly calmer Review of Systems Constitutional: Reports no additional constitutional complaints Eyes: Reports no additional eye complaints Denies dizziness Cardiovascular: Reports no additional cardiovascular complaints Respiratory: Reports as per HPI Gastrointestinal: Reports no additional gastrointestinal complaints Musculoskeletal: Reports no additional musculoskeletal complaints Skin/Breast: Denies rash Reports system reviewed and no additional complaints, except as documented, Denies dizziness and Denies Sensory deficit (Neuro) Psychiatric: Denies anxiety Mental Status Exam Mental Status Exam Narrative: Appearance: wearing hospital gown, fair hygiene, lying in bed, in NAD behavior: calmer, more cooperatibe Speech: clear, normal rate/rhythm/volume, spontaneous TP: linear TC: no signs of psychosis, wanting stimulant, minimizing effects of cocaine use Mood: better Affect: calmer AH/VH: none Delusions: none Insight/judgment: improving. Memory/cog: alert, oriented x 3. Grossly intact to conversational testing. Diagnostics Vital Signs (24Hr): Vital Signs - 24 hr 12/03/20 18:00 12/04/20 06:25 Temperature 98.7 F 97.5 F Pulse Rate 114 H 76 Respiratory Rate 16 Blood Pressure 114/56 L 125/60 Pulse Oximetry 98 Body Mass Index 29.5 Labs Results: 11/30/20 08:43 11/30/20 08:43 Medications Medications Current Medications Generic Name Dose Route Start Last Admin Trade Name Freq PRN Reason Stop Dose Admin Acetaminophen 650 mg 12/01/20 19:19 Acetaminophen 325 Mg Tablet PO Q6H PRN Headache/Pain Mild Scale (1-3) Al Hydroxide/Mg Hydroxide 30 ml 12/01/20 19:19 Magnesium Hydrox/Alum Hydrox 30 Ml Oral.Susp PO Q6H PRN Heartburn/Nausea Divalproex Sodium 500 mg 12/03/20 09:00 12/04/20 08:20 Divalproex Sodium 500 Mg Tablet.Dr PO 500 mg DAILY RAY Administration Divalproex Sodium 1,000 mg 12/02/20 21:00 12/03/20 20:38 Divalproex Sodium 500 Mg Tablet.Dr PO 1,000 mg BEDTIME RAY Administration Magnesium Hydroxide 30 ml 12/01/20 19:19 Milk Of Magnesia 30 Ml Oral.Susp PO DAILY PRN Constipation Risperidone 1 mg 12/01/20 21:00 12/04/20 08:20 Risperidone 1 Mg Tablet PO 1 mg BID RAY Administration Risperidone 1 mg 12/01/20 19:29 12/02/20 01:32 Risperidone 1 Mg Tablet PO 1 mg Q6H PRN Administration agitation/psychosis Trazodone HCl 100 mg 12/02/20 14:47 12/03/20 23:04 Trazodone Hcl 100 Mg Tablet PO 100 mg BEDTIME PRN Administration sleep Allergies Allergies Allergy/AdvReac Type Severity Reaction Status Date / Time egg [EGG] AdvReac Mild UPSET Verified 11/30/20 06:46 STOMACH Assessment & Plan Assessment & Plan (1) Cocaine use disorder: Status: Acute Code(s): F14.10 - Cocaine abuse, uncomplicated Assessment and Plan: 1. Discussed aftercare treatment, substance use treatment programs. (2) Bipolar disorder: Qualifiers: Active/Remission status: currently active Current bipolar episode type: mixed Current episode severity: unspecified Qualified Code(s): F31.60 - Bipolar disorder, current episode mixed, unspecified Status: Acute Code(s): F31.9 - Bipolar disorder, unspecified Assessment and Plan: 1. Continue depakote to 1000mg po qhs and 500mg po daily 2. continue risperidone 1mg po BID 3. Check depakote level on 12/06/2020 Greater than 50% of the session was spent on counseling and/or coordination of care
[2020-12-04 14:59] VITALS: BP 140/78; PULSE 88; RESP 16; TEMP 37.1; O2SAT 99
[2020-12-04 18:00] VITALS: BP 128/76; PULSE 89; TEMP 37
[2020-12-04] MEDS: Divalproex Sodium 500 MG TABLET.DR 1000 MG PO (20:23)
[2020-12-04] MEDS: traZODone HCL 100 MG TABLET PO (22:37)
[2020-12-05 06:30] VITALS: BP 128/65; PULSE 83; RESP 18; TEMP 36.8; O2SAT 98
[2020-12-05] MEDS: Divalproex Sodium 500 MG TABLET.DR PO (08:18)
[2020-12-05] MEDS: risperiDONE 1 MG TABLET PO ×2 (08:18→20:21)
--- NOTE | 2020-12-05 13:56 | HO.PSYCHPN ---
Subjective Subjective Date of Service: 12/05/20 Reason For Visit: MANIC EPISODE Interim History: Pt continues to report feeling calmer today. he reports not feeling as explosive as prior to coming to the hospital. He reports his sleep is improving and able to get at least 5hrs. He denies suicidal or homicidal ideation. He reports talking consistently with his partner but not with his mom. He denies VH/AH. Pt appears slightly calmer Review of Systems Constitutional: Reports no additional constitutional complaints Eyes: Reports no additional eye complaints Denies dizziness Cardiovascular: Reports no additional cardiovascular complaints Respiratory: Reports as per HPI Gastrointestinal: Reports no additional gastrointestinal complaints Musculoskeletal: Reports no additional musculoskeletal complaints Skin/Breast: Denies rash Reports system reviewed and no additional complaints, except as documented, Denies dizziness and Denies Sensory deficit (Neuro) Psychiatric: Denies anxiety Mental Status Exam Mental Status Exam Narrative: Appearance: wearing hospital gown, fair hygiene, lying in bed, in NAD behavior: calmer, more cooperatibe Speech: clear, normal rate/rhythm/volume, spontaneous TP: linear TC: no signs of psychosis, wanting stimulant, minimizing effects of cocaine use Mood: better Affect: calmer AH/VH: none Delusions: none Insight/judgment: improving. Memory/cog: alert, oriented x 3. Grossly intact to conversational testing. Diagnostics Vital Signs (24Hr): Vital Signs - 24 hr 12/04/20 14:59 12/04/20 18:00 12/05/20 06:30 Temperature 98.8 F 98.6 F 98.3 F Pulse Rate 88 89 83 Respiratory Rate 16 18 Blood Pressure 140/78 H 128/76 128/65 Pulse Oximetry 99 98 Body Mass Index 29.5 Labs Results: 11/30/20 08:43 11/30/20 08:43 Medications Medications Current Medications Generic Name Dose Route Start Last Admin Trade Name Freq PRN Reason Stop Dose Admin Acetaminophen 650 mg 12/01/20 19:19 Acetaminophen 325 Mg Tablet PO Q6H PRN Headache/Pain Mild Scale (1-3) Al Hydroxide/Mg Hydroxide 30 ml 12/01/20 19:19 Magnesium Hydrox/Alum Hydrox 30 Ml Oral.Susp PO Q6H PRN Heartburn/Nausea Divalproex Sodium 500 mg 12/03/20 09:00 12/05/20 08:18 Divalproex Sodium 500 Mg Tablet. PO 500 mg DAILY RAY Administration Divalproex Sodium 1,000 mg 12/02/20 21:00 12/04/20 20:23 Divalproex Sodium 500 Mg Tablet. PO 1,000 mg BEDTIME RAY Administration Magnesium Hydroxide 30 ml 12/01/20 19:19 Milk Of Magnesia 30 Ml Oral.Susp PO DAILY PRN Constipation Risperidone 1 mg 12/01/20 21:00 12/05/20 08:18 Risperidone 1 Mg Tablet PO 1 mg BID RAY Administration Risperidone 1 mg 12/01/20 19:29 12/02/20 01:32 Risperidone 1 Mg Tablet PO 1 mg Q6H PRN Administration agitation/psychosis Trazodone HCl 100 mg 12/02/20 14:47 12/04/20 22:37 Trazodone Hcl 100 Mg Tablet PO 100 mg BEDTIME PRN Administration sleep Allergies Allergies Allergy/AdvReac Type Severity Reaction Status Date / Time egg [EGG] AdvReac Mild UPSET Verified 11/30/20 06:46 STOMACH Assessment & Plan Assessment & Plan (1) Cocaine use disorder: Status: Acute Code(s): F14.10 - Cocaine abuse, uncomplicated Assessment and Plan: 1. Discussed aftercare treatment, substance use treatment programs. (2) Bipolar disorder: Qualifiers: Active/Remission status: currently active Current bipolar episode type: mixed Current episode severity: unspecified Qualified Code(s): F31.60 - Bipolar disorder, current episode mixed, unspecified Status: Acute Code(s): F31.9 - Bipolar disorder, unspecified Assessment and Plan: 1. Continue depakote to 1000mg po qhs and 500mg po daily 2. continue risperidone 1mg po BID 3. Check depakote level on 12/06/2020 Greater than 50% of the session was spent on counseling and/or coordination of care
[2020-12-05 18:00] VITALS: BP 121/73; PULSE 103; TEMP 36.8
[2020-12-05] MEDS: Divalproex Sodium 500 MG TABLET.DR 1000 MG PO (20:21)
[2020-12-05] MEDS: traZODone HCL 100 MG TABLET PO (22:55)
[2020-12-06 06:30] VITALS: BP 121/58; PULSE 79; RESP 16; TEMP 36.9; O2SAT 98
[2020-12-06 08:32] VITALS: BP 121/58; PULSE 79; RESP 16; TEMP 36.9; O2SAT 98
[2020-12-06] MEDS: risperiDONE 1 MG TABLET PO ×2 (08:43→20:08)
[2020-12-06] MEDS: Divalproex Sodium 500 MG TABLET.DR PO (08:43)
[2020-12-06 08:48] LABS: Valproate 112.2 mcg/mL (50.0-100.0)
--- NOTE | 2020-12-06 14:28 | HO.PSYCHPN ---
Subjective Subjective Date of Service: 12/06/20 Reason For Visit: MANIC EPISODE Interim History: Pt reports sleeping and eating well. he reports mood is good. He denies VH/AH. He is mostly in phone and per nursing at times appears to be talking but there is no one in the other line. He denies SI/HI. He is calmer. No overt delusional content reported. Depakote level 112.4, will lower total dose to 250 mg po daily and 1000 mg po qhs. Review of Systems Constitutional: Reports no additional constitutional complaints Eyes: Reports no additional eye complaints Denies dizziness Cardiovascular: Reports no additional cardiovascular complaints Respiratory: Reports as per HPI Gastrointestinal: Reports no additional gastrointestinal complaints Musculoskeletal: Reports no additional musculoskeletal complaints Skin/Breast: Denies rash Reports system reviewed and no additional complaints, except as documented, Denies dizziness and Denies Sensory deficit (Neuro) Psychiatric: Denies anxiety Mental Status Exam Mental Status Exam Narrative: Appearance: wearing hospital gown, fair hygiene, lying in bed, in NAD behavior: calmer, more cooperatibe Speech: clear, normal rate/rhythm/volume, spontaneous TP: linear TC: no signs of psychosis, wanting stimulant, minimizing effects of cocaine use Mood: better Affect: calmer AH/VH: none Delusions: none Insight/judgment: improving. Memory/cog: alert, oriented x 3. Grossly intact to conversational testing. Diagnostics Vital Signs (24Hr): Vital Signs - 24 hr 12/05/20 18:00 12/06/20 06:30 12/06/20 08:32 Temperature 98.3 F 98.4 F 98.4 F Pulse Rate 103 H 79 79 Respiratory Rate 16 16 Blood Pressure 121/73 121/58 L 121/58 L Pulse Oximetry 98 98 Body Mass Index 29.5 Labs Results: 11/30/20 08:43 11/30/20 08:43 Labs: Laboratory Results - last 48 hr 12/06/20 07:43 Valproic Acid 112.2 H* Medications Medications Current Medications Generic Name Dose Route Start Last Admin Trade Name Freq PRN Reason Stop Dose Admin Acetaminophen 650 mg 12/01/20 19:19 Acetaminophen 325 Mg Tablet PO Q6H PRN Headache/Pain Mild Scale (1-3) Al Hydroxide/Mg Hydroxide 30 ml 12/01/20 19:19 Magnesium Hydrox/Alum Hydrox 30 Ml Oral.Susp PO Q6H PRN Heartburn/Nausea Divalproex Sodium 500 mg 12/03/20 09:00 12/06/20 08:43 Divalproex Sodium 500 Mg Tablet. PO 500 mg DAILY RAY Administration Divalproex Sodium 1,000 mg 12/02/20 21:00 12/05/20 20:21 Divalproex Sodium 500 Mg Tablet. PO 1,000 mg BEDTIME RAY Administration Magnesium Hydroxide 30 ml 12/01/20 19:19 Milk Of Magnesia 30 Ml Oral.Susp PO DAILY PRN Constipation Risperidone 1 mg 12/01/20 21:00 12/06/20 08:43 Risperidone 1 Mg Tablet PO 1 mg BID RAY Administration Risperidone 1 mg 12/01/20 19:29 12/02/20 01:32 Risperidone 1 Mg Tablet PO 1 mg Q6H PRN Administration agitation/psychosis Trazodone HCl 100 mg 12/02/20 14:47 12/05/20 22:55 Trazodone Hcl 100 Mg Tablet PO 100 mg BEDTIME PRN Administration sleep Allergies Allergies Allergy/AdvReac Type Severity Reaction Status Date / Time egg [EGG] AdvReac Mild UPSET Verified 11/30/20 06:46 STOMACH Assessment & Plan Assessment & Plan (1) Cocaine use disorder: Status: Acute Code(s): F14.10 - Cocaine abuse, uncomplicated Assessment and Plan: 1. Discussed aftercare treatment, substance use treatment programs. (2) Bipolar disorder: Qualifiers: Active/Remission status: currently active Current bipolar episode type: mixed Current episode severity: unspecified Qualified Code(s): F31.60 - Bipolar disorder, current episode mixed, unspecified Status: Acute Code(s): F31.9 - Bipolar disorder, unspecified Assessment and Plan: 1. Continue depakote to 1000mg po qhs and 500mg po daily 2. continue risperidone 1mg po BID 3. Check depakote level on 12/06/2020 Greater than 50% of the session was spent on counseling and/or coordination of care
[2020-12-06] MEDS: Divalproex Sodium 250 MG TABLET.DR PO (15:40)
[2020-12-06 18:00] VITALS: BP 126/84; PULSE 82; TEMP 36.7
[2020-12-06] MEDS: Divalproex Sodium 500 MG TABLET.DR 1000 MG PO (20:08)
[2020-12-06] MEDS: traZODone HCL 100 MG TABLET PO (22:13)
[2020-12-07 06:00] VITALS: BP 121/73; PULSE 70; RESP 18; TEMP 36.6; O2SAT 98
[2020-12-07] MEDS: risperiDONE 1 MG TABLET PO (08:19)
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
--- NOTE | 2020-12-07 11:23 | PC.NURSE ---
PT IS AWARE AND READY FOR DISCHARGE ON 12/07/2020. PT VERBALIZES NO SUICIDAL OR HOMICIDAL IDEATIONS. PT REPORTS NO DEPRESSION OR ANXIETY CONCERNS. PT HAS BEEN IN BEHAVIORAL CONTROL. HE SAID HE HAS NO IMPULSIVE OR INTRUSIVE THOUGHTS. PT HAS BEEN TAKING CARE OF HIS ADLS. HE HAS BEEN EATING AND SLEEPING ADEQUATELY. PT STATES THAT THE MEDS ARE WORKING FOR HIM. PT HAS BEEN SOCIAL WITH HIS PEERS. HE HAS BEEN CALM AND COOPERATIVE WITH STAFF. PT HAS APPOINTMENTS WITH PCP AND PSYCHIATRY [facility]ADE. PT'S PAPERWORK HAS BEEN FAXED TO PCP PER PROTOCOL.
[2020-12-07] MEDS: Divalproex Sodium 250 MG TABLET.DR PO (11:55)
== END 2020-12-07 13:30 | disposition home or self-care (01) | DRG 753 ==
LOC: HO.ED 12-01 19:24 → HO.PM5 12-01 19:28
PROVIDERS: Nurse Practitioner Primary Care; Admitting Provider Social Worker; Emergency Provider Emergency Medicine; Visit Provider Social Worker
DX: F31.9 Bipolar disorder, unspecified (principal); F14.10 Cocaine abuse, uncomplicated; J45.909 Unspecified asthma, uncomplicated; Z20.822 Contact with and (suspected) exposure to COVID-19; Z23 Encounter for immunization; Z79.899 Other long term (current) drug therapy
CPT/HCPCS: 36415; 80048; 80061; 80164; 80307; 80320; 82607; 82746; 84443; 85025; 87635; 90686; 93005; 99222; 99232; 99239; 99285; G0480

== ENCOUNTER 2022-06-17 06:07 | Emergency (ER) | payer MEDICAID, SELFPAY ==
[2022-06-17 06:13] VITALS: BP 130/92; PULSE 103; RESP 17; TEMP 36.3; O2SAT 94; BMI 29.1
--- NOTE | 2022-06-17 06:35 | ED_ITS ---
HPI - Anxiety General Chief Complaint: Anxiety Stated Complaint: crisis Time Seen by Provider: 06/17/22 06:20 Source: patient Mode of arrival: ambulatory Limitations: no limitations History of Present Illness HPI narrative: Patient comes to the emergency room complaining of anxiety and depression. Denies suicidal or homicidal ideation. Patient states that he would benefit from having a therapist in outpatient basis. Related Data Home Medications Medication Instructions Recorded Confirmed No Known Home Meds 06/17/22 06/17/22 Allergies Allergy/AdvReac Type Severity Reaction Status Date / Time egg [EGG] AdvReac Mild UPSET Verified 11/30/20 06:46 STOMACH Review of Systems Review of Systems: Constitutional : No Weight loss, No Fever, No Chills, No Night Sweats, No Fatigue, No Malaise ENT/Mouth : No Hearing loss, No Ear Pain, No Nasal Congestion, No Sinus Pain, No Hoarseness, No sore throat, No Rhinorrhea, No Swallowing Difficulty Eyes: No Eye Pain, No Swelling, No Redness, No Foreign Body, No Discharge, No V ision Changes Cardiovascular : No Chest Pain, No SOB, No Dyspnea on Exertion, No Orthopnea, No Edema, No Palpitations Respiratory : No Cough, No Sputum, No Wheezing, No Smoke Exposure, No Dyspnea Gastrointestinal : No Nausea, No Vomiting, No Diarrhea, No Constipation, No abdominal Pain, No Hematochezia, No Melena Genitourinary : no irregular bleeding, No Dysuria, No Urinary Frequency, No Hematuria, No Urinary Incontinence, No Urgency, No Flank Pain, No Urinary Flow Changes, No Hesitancy Musculoskeletal : No joint pain, No Myalgias, No Joint Swelling Skin : No Skin Lesions, No rash Neuro : No Weakness, No Numbness, No Paresthesias, No Loss of Consciousness, No Dizziness, No Headache Psych : Complaining of anxiety and depression, no SI or HI Heme/Lymph: No Bruising, No Bleeding,No Lymphadenopathy Endocrine : No Polyuria, No Polydipsia, No Temperature Intolerance PMFSH Past Medical History Medical History Asthma Bipolar 1 disorder Surgical History No significant past surgical history Social History Social History Household Members: Significant Other Housing: Apartment Do you presently have visiting nurse or other home services: No Alcohol intake: never Second Hand Smoke Exposure: No Substance Use Type: Crack/Cocaine and Marijuana service: No Sexual orientation: Lesbian/Duff/Homosexual Physical Exam Vital Signs: Vital Signs: Last Vital Signs Temp 97.4 F 06/17/22 06:13 Pulse 103 H 06/17/22 06:13 Resp 17 06/17/22 06:13 BP 130/92 H 06/17/22 06:13 Pulse Ox 94 06/17/22 06:13 O2 Del Method 06/17/22 06:13 BMI result Body Mass Index 29.1 Const: Other: Appearance: Alert. Oriented X3. No acute distress. Eyes: Pupils equal, round and reactive to light. ENT: Pharynx normal. Neck: Normal inspection. Neck supple. No lymph nodes noted. No crepitus CVS: Normal heart rate and rhythm. Pulses normal. Normal S1 and S2 Respiratory: No respiratory distress. Breath sounds normal. No Wheezing. No rales Abdomen: Soft and nontender. No rigidity. No distention. Skin: Skin warm and dry. Normal skin color. Normal skin turgor. Extremities: No lower extremity edema. No Lacerations. No Rash Neuro: Oriented X 3. No motor deficit. No sensory deficit. Moving all extremities. No slurred speech. CN 2 through 12 grossly intact Psych: calm, cooperative, normal affect Course Course Course Narrative: Behavioral health network consult pending. Physician observation started 06:30. Discharge Plan Discharge Clinical Impression: Acute anxiety Patient Disposition: Still a Patient Prescriptions: No Action No Known Home Meds
[2022-06-17 06:52] LABS: Amphetamine Screen Urine Not Detected (Not Detect); Barbiturates, Urine Not Detected (Not Detect); Benzodiazepines Screen Urine Not Detected (Not Detect); Cannabinoid Screen Urine POSITIVE (Not Detect); Cocaine Screen Urine POSITIVE (Not Detect); Fentanyl, urine Not Detected (Not Detect); Opiate Screen Urine Not Detected (Not Detect); Phencyclidine Screen Urine Not Detected (Not Detect)
[2022-06-17 06:54] LABS: COVID-19 Test Negative (Negative)
[2022-06-17 07:03] LABS: MANUAL DIFF FLAG NO
[2022-06-17 07:04] LABS: Basophils Percent Auto 0.1 % (0-2); Eosinophils Percent Auto 0.2 % (0-4); Hematocrit 44.2 % (42.0-52.0); Hemoglobin 15.2 g/dl (14.0-18.0); Imm Gran Abs Auto 0.06 X10*3/uL (0.00-0.03); Imm Gran Pct Auto 0.5 % (0.0-0.4); Lymphocytes Absolute Auto 4.5 X10*3/uL (1.2-4.9); Mean Corpuscular HGB Conc 34.4 g/dl (31.0-36.0); Mean Corpuscular Hemoglobin 27.5 pg (27.0-33.0); Mean Corpuscular Volume 80.1 fL (80.0-98.0); Mean Platelet Volume 10.3 fL (9.4-12.4); Monocytes Absolute Auto 0.7 X10*3/uL (0.1-1.2); Monocytes Percent Auto 4.9 % (2-11); Neutrophils Percent Auto 60.3 % (45-73); Platelet Count 245 X10*3/uL (160-400); Red Blood Count 5.52 X10*6/uL (4.60-5.80); Red Cell Distribution Width 13.9 % (11.0-16.0); White Blood Count 13.3 X10*3/uL (4.8-10.8)
--- NOTE | 2022-06-17 07:04 | PC.NURSE ---
patient appears to remain asleep at present respirations are even and unlabored patient appears in no distress
[2022-06-17 07:18] LABS: Ethanol < 10 mg/dL
[2022-06-17 07:20] LABS: Acetaminophen LAB 7 mcg/mL (<30); Salicylate < 5.0 mg/dL (15-30)
[2022-06-17 07:21] LABS: Alanine Aminotransferase 10 U/L (0-40); Albumin Level 4.7 g/dL (3.5-5.0); Alkaline Phosphatase 105 U/L (39-117); Anion Gap 15 (12-20); Aspartate Amino Transferase 15 U/L (5-37); Bilirubin Total 4.2 mg/dL (0.0-1.0); Blood Urea Nitrogen 11 mg/dL (9-16); Calcium 9.3 mg/dL (8.4-10.2); Carbon Dioxide 26 mmol/L (22-29); Chloride 104 mmol/L (96-108); Creatinine Clr Calc Pharmacy 140.4; Estimated Glomerular Filt Rate > 60; Glucose Random 78 mg/dL (60-115); Potassium 3.9 mmol/L (3.3-5.1); Sodium 141 mmol/L (135-145); Total Protein 8.2 g/dL (6.5-8.0)
[2022-06-17 07:24] LABS: Valproate < 2.0 mcg/mL (50.0-100.0)
--- NOTE | 2022-06-17 10:33 | MHC.CARE ---
Pt is a, 26 y/o, Sinhala speaking, male who is previously known to the CARE Team via prior ED visits and inpatient stays.? Yesterday, he arrives at the emergency room via ambulance with a complaint of anxiety and depression.? He denies SI, , HI and self-harm urges.? Patient states that he would benefit from having a therapist on an outpatient basis.? He is last at this facility in November 2020 for a manic episode, which he was hospitalized.? He is not on medication stating that he is seeking a prescriber.? He denies AVH, does not appear manic, thought process is linear.? Prior dx Bipolar disorder, unspecified.? Pt has a hx of cocaine use, toxicology screen is negative for all substances. Pt is alert and oriented x4 and is assessed in his room in the Behavioral Health Pod of the ED.? He reports good sleep and appetite.? He has no prescriber and has been off his medications.? He describes his mood as ?A little anxious and depressed? he stated that he is anxious and depressed at baseline.? Pt?s affect is flat.? Insight, judgement, memory, concentration, and impulse control appear good. Plan is for pt to be discharged with a referral to Partial Hospitalization Program.? N and their counseling services were discussed with pt.? Pt stated he would call [facility] to explore counseling through them.? This disposition was discussed with and agreed upon by Branch Mechanic of Behavioral Health Velasquez Layton [facility], ED provider Willy Mota, and pt?s nurse RN Tracy Barriga.?
== END 2022-06-17 09:59 | disposition home or self-care (01) ==
PROVIDERS: Emergency Provider Emergency Medicine
DX: F41.9 Anxiety disorder, unspecified (principal); F31.9 Bipolar disorder, unspecified; F14.10 Cocaine abuse, uncomplicated; F12.90 Cannabis use, unspecified, uncomplicated; Z20.822 Contact with and (suspected) exposure to COVID-19
CPT/HCPCS: 36415; 80053; 80143; 80164; 80179; 80307; 82077; 85025; 87635; 99282; 99284

== ENCOUNTER 2024-02-13 23:24 | Inpatient (IN) | payer SELFPAY ==
[2024-02-13 23:40] VITALS: BP 126/84; BP 153/83; PULSE 110; RESP 18; TEMP 36.3; O2SAT 96; BMI 32.1
[2024-02-13 23:55] VITALS: BP 153/83; PULSE 110; RESP 18; TEMP 36.3; O2SAT 96
[2024-02-13 23:57] LABS: Appearance Urine Clear; Color Urine Yellow; Glucose Urine UA Negative (Negative); Leukocyte Esterase Urine Trace (Negative); Nitrite Urine Negative (Negative); PH 6.5 (5.0-9.0); UMIC TRIGGER UACC YES; Urine Blood Negative (Negative); Urine Ketones Trace mg/dL (Negative); Urine Protein 30 (1+) mg/dL (Neg-Trace)
--- NOTE | 2024-02-14 | ECG_ITS ---
Test Reason : QT INTERVAL Blood Pressure : / mmHG Vent. Rate : 082 BPM Atrial Rate : 082 BPM P-R Int : 154 ms QRS Dur : 088 ms QT Int : 370 ms P-R-T Axes : 085 061 052 degrees QTc Int : 432 ms Normal sinus rhythm Possible Left atrial enlargement Borderline ECG When compared to the previous EKG of No significant changes seen Referred By: Meek Arciniega Electronically Signed By:SAMI MOORE MD
--- NOTE | 2024-02-14 00:01 | MHC.EDTECH ---
pt refusing to give blood sample at this time. rn aware.
[2024-02-14 00:03] LABS: Amphetamine Screen Urine Not Detected (Not Detect); Barbiturates, Urine Not Detected (Not Detect); Benzodiazepines Screen Urine Not Detected (Not Detect); Cannabinoid Screen Urine POSITIVE (Not Detect); Cocaine Screen Urine POSITIVE (Not Detect); Fentanyl, urine Not Detected (Not Detect); Opiate Screen Urine Not Detected (Not Detect); Phencyclidine Screen Urine Not Detected (Not Detect)
[2024-02-14 00:04] LABS: Bacteria Urine None Seen (None Seen); RBC Urine 0-2 /HPF (0-2); Squamous Epithelial Cell Urine 0-2 /HPF (0-2); WBC Urine 0-5 /HPF (0-5)
[2024-02-14 02:17] LABS: COVID-19 Test Negative (Negative); IDNOW Serial# 152EDE1D
--- NOTE | 2024-02-14 02:34 | ED.GENADULT ---
HPI - General Adult General Chief complaint: Behavioral Concerns Stated complaint: SI Time Seen by Provider: 02/14/24 00:19 Source: patient Mode of arrival: ambulatory Limitations: no limitations History of Present Illness HPI narrative: 28-year-old male history of anxiety and depression presents to ED for being aggressive and paranoid. Patient states people are after him. Patient due to her multiple voices calling him demons. Patient tried to jump out of car unsuccessfully. Patient denies hitting head. The stool EMS patient wanted to jump off the bridge. Related Data Home Medications ?Medication ?Instructions ?Recorded ?Confirmed oxcarbazepine 600 mg tablet 600 mg PO BID 02/14/24 02/14/24 sertraline 100 mg tablet 100 mg PO DAILY 02/14/24 02/14/24 trazodone 150 mg tablet 150 mg PO BEDTIME 02/14/24 02/14/24 Allergies Allergy/AdvReac Type Severity Reaction Status Date / Time egg [EGG] AdvReac Mild UPSET Verified 10/08/23 11:23 STOMACH Review of Systems Review of Systems: Paranoid, aggressive, Yes all other systems are reviewed and are negative [facility] Past Medical History Medical History Asthma Bipolar 1 disorder Surgical History No significant past surgical history Social History Social History (System 10/08/23 @ 11:23 by Krystyna Flores) Household Members: Significant Other Housing: Apartment Do you presently have visiting nurse or other home services: No Alcohol intake: current Alcohol intake frequency: holidays/special occasions only Comment: asleep Smoked in Last 30 Days: No Second Hand Smoke Exposure: No Use of substances other than those prescribed or required for medical reasons: Yes Substance Use Type: Methamphetamine Substance Use Frequency: Occasionally Advance Directives: No Advance Directives Information Provided: Yes service: No Sexual orientation: Lesbian/Duff/Homosexual Physical Exam ED Vital Signs: Vital Signs - 24 hr 02/13/24 23:40 02/13/24 23:55 02/13/24 23:55 Temperature 97.3 F 97.3 F Pulse Rate 110 H 110 H Pulse Rate [Automated] 110 H Respiratory Rate 18 18 18 Blood Pressure 153/83 H 153/83 H Pulse Oximetry 96 96 Oxygen Delivery Method Room Air Room Air 02/14/24 06:16 Temperature 97.9 F Pulse Rate 96 Pulse Rate [Automated] Respiratory Rate 18 Blood Pressure 140/87 H Pulse Oximetry 98 Oxygen Delivery Method Room Air BMI result Body Mass Index 32.1 Const General: cooperative, healthy appearing, comfortable, no acute distress, well developed, alert, awake and Physically active Orientation/consciousness: oriented to person, oriented to place, oriented to time and patient oriented x3 HENMT Head: Yes normal to inspection, Yes No palpable skull fracture present, Yes normocephalic, Yes atraumatic and No abrasion Eyes General: appearance normal, both eyes and all related structures Neck Neck: Yes normal visual inspection, Yes full ROM, Yes no lymphadenopathy, Yes no meningeal signs, Yes trachea midline, Yes supple, No anterior neck swelling and No tender Chest Chest palpation & inspection: normal inspection of the chest and normal palpation of entire chest wall Resp Effort & Inspection: normal respiratory effort and able to speak in complete sentences Auscultation: clear to auscultation bilaterally Cardio Jugular venous distension: no JVD Heart sounds: S1 normal heart sound present and S2 normal heart sound present GI Inspection: Yes normal to inspection Palpation (GI): Soft to palpation, not firm, nontender and no guarding General: No CVA tenderness and Yes no CVA tenderness Back/Spine/Pelvis Back: no CVA tenderness, No CVA tenderness and No back tenderness Skin General skin exam: no rashes or lesions noted, elasticity normal and turgor normal Neuro General: oriented to person, oriented to place, oriented to time, patient oriented x3, gait normal, tone normal, moves all extremities, Normal light touch and pain sensation, no meningeal signs, no focal motor deficits, CN's II-XI intact bilaterally and normal sensation to monofilament Extrem General: Yes normal to inspection, Yes full ROM and Yes capillary refill normal Hand/finger images: 1. Small abrasion no suture needed no tenderness Psych Appearance: grossly normal, well kempt and not disheveled Medications Administered Generic Name Dose Route Start Last Admin Trade Name Freq PRN Reason Stop Dose Admin Oxcarbazepine 600 mg 02/14/24 03:00 02/14/24 11:13 Oxcarbazepine 300 Mg Tablet PO 600 mg BID RAY Administration Sertraline HCl 100 mg 02/14/24 09:00 02/14/24 08:08 Sertraline Hcl 100 Mg Tablet PO 100 mg DAILY RAY Administration Trazodone HCl 150 mg 02/14/24 02:45 02/14/24 05:58 Trazodone Hcl 50 Mg Tablet PO Not Given BEDTIME RAY Discontinued Medications Generic Name Dose Route Start Last Admin Trade Name Stephaneq PRN Reason Stop Dose Admin Lorazepam 2 mg 02/14/24 10:31 02/14/24 10:41 Lorazepam 1 Mg Tablet PO 02/14/24 10:32 2 mg ONCE ONE Administration Medical Decision Making Medical Decision Making [facility] Narrative: 28-year-old male aggressive and paranoid with anxiety and depression. Patient states he is hearing demons. Whole-body evaluated negative for signs of trauma. Labs ordered patient to be evaluated by care team. Patient sleeping comfortably in bed. Differential Diagnosis Differential Diagnoses: The differential diagnosis associated with the presentation includes (Depression, SI, anxiety,) Admission/Observation Consideration of admission/observation: Escalation of care including admission/observation considered Consult Healthcare Provider Management of the patient was discussed with: Medical Educator (Cared) Lab Data [facility] Lab Attestation statement: I reviewed the patient's lab results. 02/14/24 06:22 02/14/24 06:22 Labs: Lab Results 02/13/24 02/14/24 02/14/24 Range/Units 23:48 01:56 06:22 WBC 11.4 H (4.8-10.8) X10*3/uL RBC 5.71 (4.60-5.80) X10*6/uL Hgb 16.0 (14.0-18.0) g/dl Hct 46.1 (42.0-52.0) % MCV 80.7 (80.0-98.0) fL MCH 28.0 (27.0-33.0) pg MCHC 34.7 (31.0-36.0) g/dl RDW 13.2 (11.0-16.0) % Plt Count 247 (160-400) X10*3/uL MPV 10.0 (9.4-12.4) fL Immature Gran % (Auto) 0.3 (0.0-0.4) % Neut % (Auto) 57.7 (45-73) % Lymph % (Auto) 34.6 (20-40) % [place] % (Auto) 6.5 (2-11) % Eos % (Auto) 0.7 (0-4) % Baso % (Auto) 0.2 (0-2) % Lymph # (Auto) 3.9 (1.2-4.9) X10*3/uL [place] # (Auto) 0.7 (0.1-1.2) X10*3/uL Eos # (Auto) 0.1 (0.0-0.4) X10*3/uL Baso # (Auto) 0.0 (0.0-0.2) X10*3/uL Abs Immat Gran (auto) 0.03 (0.00-0.03) X10*3/uL Absolute Neuts (auto) 6.6 (2.0-8.3) x10*3/uL Absolute Nucleated RBC 0.000 (0.0-0.012) X10*3/uL Nucleated RBC % (auto) 0.0 (0.0-0.2) /100WBC Sodium 139 (135-145) mmol/L Potassium 3.9 (3.3-5.1) mmol/L Chloride 104 (96-108) mmol/L Carbon Dioxide 27 (22-29) mmol/L Anion Gap 12 (12-20) BUN 10 (9-16) mg/dL Creatinine 0.89 (0.5-1.4) mg/dL Estim Creat Clear Calc 168.4 Estimated GFR > 60 Random Glucose 85 (60-115) mg/dL Calcium 9.6 (8.4-10.2) mg/dL Total Bilirubin 1.5 H (0.0-1.0) mg/dL AST 16 (5-37) U/L ALT 8 (0-40) U/L Alkaline Phosphatase 87 (39-117) U/L Total Protein 8.4 H (6.5-8.0) g/dL Albumin 4.5 (3.5-5.0) g/dL Urine Color Yellow Urine Appearance Clear Urine pH 6.5 (5.0-9.0) Ur Specific [place] 1.020 (1.005-1.025) Urine Protein 30 (1+) H (Neg-Trace) mg/dL Urine Glucose (UA) Negative (Negative) mg/dL Urine Ketones Trace (Negative) mg/dL Urine Blood Negative (Negative) Urine Nitrite Negative (Negative) Ur Leukocyte Esterase Trace H (Negative) Urine RBC 0-2 (0-2) /HPF Urine WBC 0-5 (0-5) /HPF Ur Squamous Epith Cells 0-2 (0-2) /HPF Urine Bacteria None Seen (None Seen) Hyaline Casts 3-5 (0-2) /LPF Urine Opiates Screen Not Detected (Not Detect) Urine Fentanyl Screen Not Detected (Not Detect) Ur Barbiturates Screen Not Detected (Not Detect) Ur Phencyclidine Scrn Not Detected (Not Detect) Ur Amphetamines Screen Not Detected (Not Detect) U Benzodiazepines Scrn Not Detected (Not Detect) Urine Cocaine Screen POSITIVE H (Not Detect) U Marijuana (THC) Screen POSITIVE H (Not Detect) Ethyl Alcohol < 10 mg/dL COVID-19 (NEVA) Negative (Negative) COVID-19 Clin Com See Note ABG Data Attestation ABG: I personally reviewed and interpreted this ABG as follows: Radiology Impression Discussion of test interpretation with radiology: I have reviewed the radiologist's reading. Discharge Plan Discharge Clinical Impression: Bipolar disorder Patient Disposition: Still a Patient Prescriptions: No Action sertraline 100 mg tablet 100 mg PO DAILY trazodone 150 mg tablet 150 mg PO BEDTIME oxcarbazepine 600 mg tablet 600 mg PO BID Print Language: Czech
[2024-02-14 06:16] VITALS: BP 140/87; PULSE 96; RESP 18; TEMP 36.6; O2SAT 98
[2024-02-14 06:27] LABS: MANUAL DIFF FLAG NO
[2024-02-14 06:30] LABS: Basophils Percent Auto 0.2 % (0-2); Eosinophils Absolute Auto 0.1 X10*3/uL (0.0-0.4); Eosinophils Percent Auto 0.7 % (0-4); Hematocrit 46.1 % (42.0-52.0); Imm Gran Abs Auto 0.03 X10*3/uL (0.00-0.03); Imm Gran Pct Auto 0.3 % (0.0-0.4); Lymphocytes Absolute Auto 3.9 X10*3/uL (1.2-4.9); Lymphocytes Percent Auto 34.6 % (20-40); Mean Corpuscular HGB Conc 34.7 g/dl (31.0-36.0); Mean Corpuscular Volume 80.7 fL (80.0-98.0); Monocytes Absolute Auto 0.7 X10*3/uL (0.1-1.2); Monocytes Percent Auto 6.5 % (2-11); Neutrophils Absolute Auto 6.6 x10*3/uL (2.0-8.3); Neutrophils Percent Auto 57.7 % (45-73); Platelet Count 247 X10*3/uL (160-400); Red Blood Count 5.71 X10*6/uL (4.60-5.80); Red Cell Distribution Width 13.2 % (11.0-16.0); White Blood Count 11.4 X10*3/uL (4.8-10.8)
[2024-02-14 06:49] LABS: Alanine Aminotransferase 8 U/L (0-40); Albumin Level 4.5 g/dL (3.5-5.0); Alkaline Phosphatase 87 U/L (39-117); Anion Gap 12 (12-20); Aspartate Amino Transferase 16 U/L (5-37); Bilirubin Total 1.5 mg/dL (0.0-1.0); Blood Urea Nitrogen 10 mg/dL (9-16); Calcium 9.6 mg/dL (8.4-10.2); Carbon Dioxide 27 mmol/L (22-29); Chloride 104 mmol/L (96-108); Creatinine Clr Calc Pharmacy 168.4; Estimated Glomerular Filt Rate > 60; Ethanol < 10 mg/dL; Glucose Random 85 mg/dL (60-115); Potassium 3.9 mmol/L (3.3-5.1); Sodium 139 mmol/L (135-145); Total Protein 8.4 g/dL (6.5-8.0)
[2024-02-14] MEDS: Sertraline HCL 100 MG TABLET PO (08:08)
[2024-02-14] MEDS: LORazepam 1 MG TABLET 2 MG PO (10:41)
[2024-02-14] MEDS: OXcarbazepine 300 MG TABLET 600 MG PO ×2 (11:13→21:23)
[2024-02-14 18:43] VITALS: BP 134/91; PULSE 88; RESP 18; TEMP 36.8; O2SAT 98
[2024-02-14 20:28] VITALS: BP 125/77; PULSE 100; TEMP 36.7; O2SAT 97
--- NOTE | 2024-02-14 20:47 | PC.ADMIT ---
PT ARRIVED VIA WHEELCHAIR FROM [facility] ED [facility] POD. HE WAS COOPERATIVE WITH THE ADMISSION PROCESS BUT DIFFICULT TO GET CLEAR INFORMATION FROM HIM. HIS SPEECH IS SLIGHTLY DELAYED AND VERY TANGENTIAL. DIFFICULT TO REDIRECT PATIENT TO GET HIM TO STAY ON ONE TOPIC. NO ACTIVE PROVIDERS AND NO MEDICATION COMPLIANCE. HE STATED THAT HE TAKES TRILEPTAL FOR SEIZURES BUT COULD NOT STATE WHO WAS PRESCRIBING IT FOR HIM CURRENTLY. PT. STATED THAT HE WAS PREVIOUSLY INPATIENT ON M5.
[2024-02-14] MEDS: OLANZapine 5 MG TABLET PO (21:23)
[2024-02-14] MEDS: traZODone HCL 50 MG TABLET 150 MG PO (21:26)
[2024-02-15 08:26] VITALS: BP 155/83; PULSE 94; RESP 18; TEMP 36.8; O2SAT 97
[2024-02-15] MEDS: hydrOXYzine HCL 25 MG TABLET PO (08:32)
[2024-02-15] MEDS: OXcarbazepine 300 MG TABLET 600 MG PO ×2 (08:32→20:07)
[2024-02-15] MEDS: Sertraline HCL 100 MG TABLET PO (08:32)
[2024-02-15 08:49] LABS: Estimated Average Glucose 74 mg/dL; Hemoglobin A1c % 4.2 % (<6.0)
[2024-02-15 08:57] LABS: Alanine Aminotransferase 7 U/L (0-40); Albumin Level 4.4 g/dL (3.5-5.0); Alkaline Phosphatase 86 U/L (39-117); Anion Gap 12 (12-20); Aspartate Amino Transferase 16 U/L (5-37); Bilirubin Total 0.7 mg/dL (0.0-1.0); Blood Urea Nitrogen 10 mg/dL (9-16); Calcium 9.4 mg/dL (8.4-10.2); Carbon Dioxide 25 mmol/L (22-29); Chloride 107 mmol/L (96-108); Cholesterol 113 mg/dL (<200); Creatinine Clr Calc Pharmacy 178.4; Estimated Glomerular Filt Rate > 60; Glucose Fasting 110 mg/dL (60-99); HDL Cholesterol 32 mg/dL (>40); LDL Cholesterol Calculated 61 mg/dL (<100); Potassium 3.6 mmol/L (3.3-5.1); Sodium 140 mmol/L (135-145); Total Protein 7.8 g/dL (6.5-8.0); Triglycerides 100 mg/dL (<150)
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
[2024-02-15] MEDS: OLANZapine 5 MG TABLET PO (11:37)
[2024-02-15 20:00] VITALS: BP 127/57; PULSE 73; TEMP 36.8
[2024-02-15] MEDS: traZODone HCL 50 MG TABLET 150 MG PO (20:08)
[2024-02-16] MEDS: hydrOXYzine HCL 25 MG TABLET PO (01:03)
[2024-02-16 07:35] VITALS: BP 164/85; PULSE 103; RESP 18; TEMP 36.4; O2SAT 97
[2024-02-16] MEDS: OXcarbazepine 300 MG TABLET 600 MG PO ×2 (08:29→21:36)
[2024-02-16] MEDS: Sertraline HCL 100 MG TABLET PO (08:29)
[2024-02-16] MEDS: OLANZapine 5 MG TABLET PO ×2 (11:19→16:17)
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
[2024-02-16 16:54] VITALS: BP 133/78; PULSE 85; RESP 18; TEMP 37; O2SAT 95
[2024-02-16] MEDS: traZODone HCL 50 MG TABLET 150 MG PO (21:37)
[2024-02-16] MEDS: OLANZapine 10 MG TABLET PO (21:38)
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
[2024-02-17 08:00] VITALS: BP 92/68; PULSE 85; RESP 18; TEMP 36.6; O2SAT 99
[2024-02-17] MEDS: Sertraline HCL 100 MG TABLET PO (08:28)
[2024-02-17] MEDS: OXcarbazepine 300 MG TABLET 600 MG PO ×2 (08:28→20:57)
[2024-02-17] MEDS: hydrOXYzine HCL 25 MG TABLET PO ×2 (09:29→17:39)
[2024-02-17 10:08] LABS: CT PCR NOT DETECTED (Not Detect.); NG PCR NOT DETECTED (Not Detect.)
[2024-02-17 16:50] VITALS: BP 163/84; PULSE 84; RESP 16; TEMP 37; O2SAT 97
[2024-02-17] MEDS: OLANZapine 5 MG TABLET PO (17:39)
[2024-02-17] MEDS: traZODone HCL 50 MG TABLET 150 MG PO (20:57)
[2024-02-17] MEDS: OLANZapine 10 MG TABLET PO (20:57)
[2024-02-18 04:34] LABS: HBc Num1 0.14 S/CO (0.00-0.79); HBsAGNum1 0.28 S/CO (0.00-0.99); HIV AB/AG Nonreactive (Nonreactive); HIV Num 1 0.08 S/CO (0.00-0.99); Hepatitis A Antibody IgM 0.36 Index (0-0.79); Hepatitis B Core Antibody Nonreactive (Nonreactive); Hepatitis B Surface Antigen Negative (Negative); Syphilis Screen Nonreactive (Nonreactive); ~Hepatitis A Antibody IgM Nonreactive (Nonreactive); ~Hepatitis B Surface Antibody REACTIVE (Nonreactive); ~Hepatitis C Antibody Nonreactive (Nonreactive)
[2024-02-18 08:00] VITALS: BP 160/86; PULSE 82; RESP 18; TEMP 36.9; O2SAT 98
[2024-02-18] MEDS: OXcarbazepine 300 MG TABLET 600 MG PO ×2 (08:24→19:39)
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
[2024-02-18] MEDS: OLANZapine 5 MG TABLET PO (11:46)
[2024-02-18] MEDS: hydrOXYzine HCL 25 MG TABLET PO (13:29)
[2024-02-18 18:00] VITALS: BP 169/75; PULSE 72; TEMP 37
[2024-02-18] MEDS: Acetaminophen 325 MG TABLET 650 MG PO (18:17)
[2024-02-18] MEDS: Sertraline HCL 100 MG TABLET PO (19:39)
[2024-02-18] MEDS: OLANZapine 10 MG TABLET PO (19:39)
[2024-02-18] MEDS: traZODone HCL 50 MG TABLET 150 MG PO (19:40)
[2024-02-19 06:00] VITALS: BP 159/93; PULSE 81; RESP 16; TEMP 36.9; O2SAT 98
[2024-02-19] MEDS: hydrOXYzine HCL 25 MG TABLET PO ×2 (06:08→14:46)
[2024-02-19] MEDS: OXcarbazepine 300 MG TABLET 600 MG PO ×2 (08:32→21:16)
[2024-02-19] MEDS: Albuterol Sulfate 90 MCG 8 GM INHALER 2 PUFF INHALE (08:34)
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
[2024-02-19] MEDS: OLANZapine 5 MG TABLET PO (14:46)
[2024-02-19 20:49] VITALS: BP 115/60; PULSE 68; RESP 18; TEMP 36.1; O2SAT 97
[2024-02-19] MEDS: Sertraline HCL 100 MG TABLET PO (21:16)
[2024-02-19] MEDS: OLANZapine 10 MG TABLET PO (21:16)
[2024-02-19] MEDS: traZODone HCL 50 MG TABLET 150 MG PO (21:29)
[2024-02-20] MEDS: hydrOXYzine HCL 25 MG TABLET PO (03:29)
[2024-02-20 07:35] VITALS: BP 138/79; PULSE 82; RESP 18; TEMP 36.8
[2024-02-20] MEDS: OXcarbazepine 300 MG TABLET 600 MG PO (09:05)
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
[2024-02-20] MEDS: Naloxone HCl Nasal TAKE HOME 4 MG SPRAY 8 MG NOSTRILALT (09:39)
[2024-02-20] MEDS: OLANZapine 5 MG TABLET PO (10:56)
== END 2024-02-20 11:35 | disposition home or self-care (01) | DRG 885 ==
LOC: HO.ED 02-14 12:33 → HO.PM5 02-14 14:10
PROVIDERS: Clinical Nurse Specialist Psychiatric/Mental Health, Adult; Admitting Provider Psychiatry & Neurology Psychiatry; Emergency Provider Internal Medicine; Visit Provider Psychiatry & Neurology Psychiatry
DX: F31.10 Bipolar disorder, current episode manic without psychotic features, unspecified (principal); R45.851 Suicidal ideations; F14.10 Cocaine abuse, uncomplicated; F15.10 Other stimulant abuse, uncomplicated; J45.909 Unspecified asthma, uncomplicated; Z20.822 Contact with and (suspected) exposure to COVID-19; Z79.899 Other long term (current) drug therapy
CPT/HCPCS: 0353U; 36415; 80053; 80061; 80307; 81001; 83036; 85025; 86704; 86706; 86709; 86780; 86803; 87340; 87389; 87635; 93005; 99285; S9485

== ENCOUNTER → 2024-02-14 10:23 | Outpatient (BNV) | payer SELFPAY | PROVIDERS: Admitting Provider Psychiatry & Neurology Psychiatry; Emergency Provider Internal Medicine; Visit Provider Internal Medicine Cardiovascular Disease | DX: I45.81 Long QT syndrome (principal) | CPT/HCPCS: 93010 ==

== ENCOUNTER → 2024-02-14 13:56 | Outpatient (BNV) | payer SELFPAY | PROVIDERS: Admitting Provider Psychiatry & Neurology Psychiatry; Emergency Provider Internal Medicine; Visit Provider Psychiatry & Neurology Psychiatry | DX: F31.13 Bipolar disorder, current episode manic without psychotic features, severe (principal); F14.10 Cocaine abuse, uncomplicated | CPT/HCPCS: 90792; 99231; 99232; 99239 ==

== ENCOUNTER 2025-07-21 17:37 | Emergency (ER) | payer MEDICAID, SELFPAY ==
[2025-07-21 17:44] VITALS: BP 170/91; PULSE 120; O2SAT 96
[2025-07-21 17:52] VITALS: BP 142/85; PULSE 118; RESP 16; TEMP 36.6; O2SAT 99; BMI 32.3
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
--- NOTE | 2025-07-21 17:57 | ECG_ITS ---
Test Reason : OVERDOSE Blood Pressure : */* mmHG Vent. Rate : 111 BPM Atrial Rate : 111 BPM P-R Int : 160 ms QRS Dur : 108 ms QT Int : 356 ms P-R-T Axes : 75 59 48 degrees QTcB Int : 484 ms Poor data quality, interpretation may be adversely affected Sinus tachycardia Otherwise normal ECG When compared with ECG of 14-Feb-2024 10:23, No significant change was found Referred By: Suzanna Whitley Electronically Signed By: SAMI MOORE MD
--- NOTE | 2025-07-21 18:18 | PC.NURSE ---
Security called for safety search, Nilay junior searched patient. Patient changed into green aleshia top. Resting quietly on stretcher at this time.
--- OUTSIDE RECORDS SUMMARY | 2025-07-21 18:23 | XMS_ITS | Encounter Summary ---
Author Organization [employer] Address [address] [facility] [address] [place] [address] Care Team Providers Care Building Associate Name Role Phone Dana Pires NP Primary Care Provider [phone] Vinicio Dumont RN Unavailable Encounter Details Date Type Department Care Team ([facility] st Contact Info) Description 09/25/2024 Orders Only [facility] [address] [place] [address] Dana Pires NP [address] [place] [address] Social History Tobacco Use Types Packs/Day Years Used Date Smoking Tobacco: Never Passive Smoke Exposure: Never Smokeless Tobacco: Never Alcohol Use Standard Drinks/Week Comments Yes 2 (1 standard drink = 0.6 oz pur e alcohol) Sometimes Depression Answer Date Recorded Patient Health Questionnaire-9 Score 17 09/24/2024 Patient Health Questionnaire-9 Score 17 09/24/2024 Last PHQ-9: Questionnaire Data Not on file 1 11/24/2023 Housing Stability Answer Date Recorded What is your housing situation today? I have sami salomon 10/03/[address] you li ve. Do you have problems with any of the following? None of the above 10/03/2023 Food Insecurity Answer Date Recorded Within the past 12 months, y ou worried that your food would run out before you got money to buy more: Never True 10/03/2023 Within the past 12 months,th e food you bought just didn't last and you didn't have enough money to get more: Never True Transportation Answer Date Recorded In the past 12 months, has l ack of transportation kept you from medical appts, meetings, work or from getting things needed for daily living? No 10/03/2023 Utilities Answer Date Recorded In the past 12 months, has t he electric, gas, oil or water company threatened to shut off services in your home? No 10/03/2023 Depression Answer Date Recorded Patient Health Questionnaire-2 Score 4 09/24/2024 Sex and Gender Information Value Date Recorded Sex Assigned at Male 2022 10:36 AM EDT Legal Sex Male 10:36 AM EDT Gender Identity Male 2022 10:36 AM EDT Sexual Orientation Pansexual 06/13/2025 11 :39 PM EDT documented as of this encounter Plan of Treatment Not on file documented as of this encounter Visit Diagnoses Not on filedocumented in this encounter Additional Health Concerns Assessment Noted Time PHQ-9 Depression Total Score: 17 024 10:49 AM EST documented as of this encounter Care Teams Building Associate Relationship Specialty Start Date End Date Dana Pires NP [address] [place] [id number] PCP - General Family Medicine 10/03/23 Vinicio Dumont RN [address] [place] [id number] Cigar Head PeggerSocial Organization Professor 10/16/24 02/01/25 documented as of this encounter
--- OUTSIDE RECORDS SUMMARY | 2025-07-21 18:23 | XMS_ITS | Encounter Summary ---
Author Organization [employer] Address [address] [place] [address] [address] [place] [address] Care Team Providers Care Water Resources Program Director Name Role Phone Dana Pires EASEMENT WORKER Primary Care Provider [phone] Vinicio Dumont RN Unavailable [phone] Reason for Visit * Reason Onset Date Comments New Patient 08/28/2023 Encounter Details Date Type Department Care Team ([facility] st Contact Info) Description 08/28/2023 Telephone [facility] MED[facility]INE [address] [place] [address] David Rodriguez MD [address] [place] [address] New Patient Social History Tobacco Use Types Packs/Day Years Used Date Smoking Tobacco: Never Assessed Sex and Gender Information Value Date Recorded Sex Assigned at Male 2022 10:36 AM EDT Legal Sex Male 10:36 AM EDT Gender Identity Male 2022 10:36 AM EDT Sexual Orientation Pansexual 06/13/2025 11 :39 PM EDT documented as of this encounter Miscellaneous Notes * Telephone Encounter - Zohaib Medina - 08/28/2023 3:16 PM EDT PAR Zohaib Marroquin called pt to Offer EASEMENT WORKER appt. Pt demographics and insurance information were verified. Pt states following medical conditions: YES Pt reports taking medications: YES ( will bring onday of appt ) Pt given EASEMENT WORKER appt with EASEMENT WORKER Dana Pires on 10/03/2023 @ 9:00 am. Pt will be sent appt reminder card and medical release form and agrees to complete and to return to medical records priorto EASEMENT WORKER appt. documented in this encounter Plan of Treatment Not on file documented as of this encounter Visit Diagnoses Not on filedocumented in this encounter Care Teams Water Resources Program Director Relationship Specialty Start Date End Date Dana Pires NP [address] [place] [id number] PCP - General Family Medicine 10/03/23 Vinicio Dumont RN [address] [place] [id number] Landscape Horticulture InstructorDetonator Maker 10/16/24 02/01/25 documented as of this encounter
--- OUTSIDE RECORDS SUMMARY | 2025-07-21 18:23 | XMS_ITS | Encounter Summary ---
Author Organization [employer] Address [address] [place] [address] 7 [place] [address] Care Team Providers Care Spanish Teacher Name Role Phone Dana Pires NP Primary Care Provider [phone] Vinicio Dumont RN Unavailable [phone] Reason for Visit * Reason Onset Date Comments Hospital Follow-up 10/07/2024 Encounter Details Date Type Department Care Team ([facility] st Contact Info) Description 10/07/2024 Telephone [facility] MEDICINE [address] [place] [address] Dana Pires NP [address] [place] [address] Hospital Follow-up Social History Tobacco Use Types Packs/Day Years [...] is your housing situation today? I have samiareli salomon 10/03/[address] you [...] encounter Miscellaneous Notes * Telephone Encounter - Silvio Crews - 10/07/2024 12:37 PM EST Tc from pt requesting a HDF appt. Hospital: [facility] Date of admission: 10/03 Discharge date: 10/08 Diagnosed: Depression, Overdose on Clonadine, and Bipolar Disorder. Contact pt at [phone] *Send message to [facility] Clinical Care Coordinators documented in this encounter Plan of Treatment Not on file documented as of this encounter Visit Diagnoses Not on filedocumented in this encounter Additional Health Concerns Assessment Noted Time PHQ-9 Depression Total Score: 17 024 10:49 AM EST documented as of this encounter Care Teams Spanish Teacher Relationship Specialty Start Date End Date Dana Pires NP [address] [place] [address] PCP - General Family Medicine 10/03/23 Vinicio Dumont RN [address] [place] [address] Social Media Marketing ManagerUpholstery Repairer 10/16/24 02/01/25 documented as of this encounter
--- OUTSIDE RECORDS SUMMARY | 2025-07-21 18:23 | XMS_ITS | Encounter Summary ---
Author Organization [employer] Address [address] [place] [address] [address] [place] [address] Care Team Providers Care Smelter Charger Name Role Phone Dana Pires NP Primary Care Provider [phone] Vinicio Dumont RN Unavailable [phone] Reason for Visit * Reason Comments Med Refill Encounter Details Date Type Department Care Team ([facility] st Contact Info) Description 01/29/2024 Refill [facility]INE [address] [place] [address] Dana Pires NP [address] [place] [address] Bipolar affective disorder, remission status unspecified ([facility]) Social History Tobacco Use Types Packs/Day Years Used Date Smoking Tobacco: Never Smokeless Tobacco: Never Alcohol Use Standard Drinks/Week Comments Yes 2 (1 standard drink = 0.6 oz pur e alcohol) Sometimes Depression Answer Date Recorded Patient Health Questionnaire-9 Score 0 10/03/2023 Patient Health Questionnaire-9 Score 0 10/03/2023 Last PHQ-9: Questionnaire Data Not on file 1 12/03/2022 Housing Stability Answer Date Recorded What is [...] Answer Date Recorded Patient Health Questionnaire-2 Score 0 10/03/2023 Sex and Gender Information Value Date Recorded Sex Assigned at Male 2022 10:36 AM EDT Legal Sex Male 10:36 AM EDT Gender Identity Male 2022 10:36 AM EDT Sexual Orientation Pansexual 06/13/2025 11 :39 PM EDT documented as of this encounter Plan of Treatment Not on file documented as of this encounter Visit Diagnoses Diagnosis Bipolar affective disorder, remission status unspecified ([facility]) documented in this encounter Additional Health Concerns Assessment Noted Time PHQ-9 Depression Total Score: 0 10/03/20 9:10 AM EST documented as of this encounter Care Teams Smelter Charger Relationship Specialty Start Date End Date Dana Pires NP [address] [place] [address] PCP - General Family Medicine 10/03/23 Vinicio Dumont RN [address] [place] [address] Technical Specialist CytologyClient Relations Associate 10/16/24 02/01/25 documented as of this encounter
--- OUTSIDE RECORDS SUMMARY | 2025-07-21 18:23 | XMS_ITS | Clinical Summary ---
Author Organization [employer] Address [address] [place] [address] Care Team Providers Care Cover Stripper Name Role Phone Dana Pires NP Primary Care Provider [phone] Allergies No known active allergies Medications * This document contains information received from the source organization and may not represent a complete record from that organization. albuterol (Ventolin HFA) 108 (90 Base) MCG/ACT inhaler Inhale 1 puff if needed in the morning and at bedtime for wheezing. INHALE 1 PUFF IN MORNING, AT NOON, IN EVENING, AND AT BEDTIME IF NEEDED FOR WHEEZING. 18 g 5 4 Active Blood Pressure kitIndications:El evated blood pressure reading 1 each 2 times daily. 1 kit 4 10/24/20 25 Active fluticasone (Flonase) 50 MCG/ACT nasal sprayIndications: Acute cough Administer 1 spray into each nostril Once per day. Shake gently. Before first use, prime pump. After use, clean tip and replace cap. 16 g 2 4 10/24/20 25 Active amphetamine-dextr oamphetamine XR (Adderall XR) 20 MG 24 hr capsuleIndication s:Attention deficit hyperactivity disorder, predominantly inattentive type Take 1 capsule (20 mg) by mouth in the morning. TAKE 1 CAPSULE BY MOUTH EVERY MORNING. DO NOT CRUSH OR CHEW. 28 capsule 5 Active QUEtiapine (SEROquel) 50 MG tabletIndications :Schizoaffective disorder, bipolar type (CMS/HCC) Take 1 tablet (50 mg) by mouth at bedtime. 30 tablet 1 5 Active traZODone (Desyrel) 150 MG tabletIndications :Sleep disorder Take 1 tablet (150 mg) by mouth at bedtime. 30 tablet 1 5 Active buPROPion XL (Wellbutrin XL) 300 MG 24 hr tabletIndications :Severe major depression with psychotic features (CMS/HCC) Take 1 tablet (300 mg) by mouth Once per day. 30 tablet 1 5 Active hydrOXYzine pamoate (Vistaril) 25 MG capsuleIndication s:DANNY (generalized anxiety disorder) TAKE 1 CAPSULE BY MOUTH EVERY MORNING AND 3 CAPSULES EVERY NIGHT AT BEDTIME 120 capsule 5 Active Active Problems Problem Noted Date Diagnosed Date Sleep disorder 04/14/2025 Class 1 obesity 09/24/2024 Assessment & Plan (03/12/2025 11:28 AM EDT): -possibly contributed to by psych medication use -metabolic labs ordered -Dietary Recommendations: Fruits, vegetables, whole grains, protein foods, and fat-free or low-fat dairy products are healthy choices. Eat different types of protein foods in your diet. This can include seafood, lean meats, poultry, beans, peas, lentils, nuts, seeds, soy products, and eggs. Limit foods and beverages higher in added sugars, saturated fat, and sodium. Exercise Recommendations: At least 150 minutes of moderate-intensity physical activity per week, or an equivalent combination of moderate- and vigorous-intensity activity Severe major depression with psychotic features 08/18/2024 Assessment & Plan (06/25/2025 1:55 PM EDT): - Depression treated with Wellbutrin; acknowledged Wellbutrin is not effective for ADHD. - Continue Wellbutrin for depression. No changes to current regimen discussed. - Discussed need for more expert management of depression and behavioral health as a whole - Appointment with Kym wilson for psych services obtained for August 13 at 11 am and patient is informed of this during time of visit Assessment & Plan (09/24/2024 12:09 PM EST): Patient Health Questionnaire-9 Score: 17 (09/24/2024 10:49 AM) DANNY-7 Total Score: 20 (09/24/2024 10:50 AM) Will plan to send 30 day supply of psych medications, 28 day supply of adderall to cover patient until they see their PCP at 3 week f/u. Pt is in the process of getting Psych provider with just needs to complete intake, once patient is established Psychiatrist should be managing his medication regimen. Pt declines support for substance use at this time. DANNY (generalized anxiety disorder) 08/18/2024 Assessment & Plan (03/12/2025 11:31 AM EDT): -medication refill provided as requested Assessment & Plan (09/29/2024 9:18 AM EST): During IBH Consult Hardy presenting with depressed mood, irritable mood, loss of interests/pleasure , psychomotor retardation, fatigue/loss of energy, inappropriate/excessive guilt , difficulty concentrating, excessive worry/anxiety, difficulty controlling worry, and anxiety/worry associated to restlessness and/or feeling keyed-up/On edge , easily fatigued , and irritability, and Pattern of unstable and intense interpersonal relationships, Affective instability, Intense anger, Disassociation, and Other: Flat affect, Trouble processing and with decision making, and Difficulty with social interactions,; for a period of 18+ mo, for most or all symptoms in the context of unable to identify significant stressors. Pt carries a diagnosis for Bipolar disorder, DANNY, ADHD, PTSD and depression. Hardy is currently living with his uncle. He was referred to [facility] for OP therapy and psychiatry services. Currently on medication (reports improvement). PCP is managing medication but due to symptom's severity psychiatry services are needed and recommended. Pt reports he completed the intake forms but still waiting for services. clinician engaged patient with active/reflective listening. Reviewed and assessed for risk, current stressors and protective factors using open-ended questions. Provided information for [facility] crisis line and [facility] help line. Subclinical hyperthyroidism 10/03/2023 Assessment & Plan (10/03/2023 10:56 AM EST): -TSH 0.34 and Free T4 1.1 on 06/2022 -question thyroid dysfunction -TSH w/ reflex to T4 ordered H/O vitamin D deficiency 10/03/2023 Assessment & Plan (10/03/2023 10:41 AM EST): -decreased levels on 06/2022. -not taking supplementation at this time. Labs ordered to re-check level Bilateral impacted cerumen 10/03/2023 Assessment & Plan (10/03/2023 10:48 AM EST): -unable to visualize TM bilaterally -debrox rx sent to pharmacy -advised to wipe external ear canal with towel after shower Encounter for annual physical exam 10/03/2023 Assessment & Plan (03/12/2025 11:25 AM EDT): -age appropriate screening and immunizations up to date (STI screening) -low cardiovascular risk -healthy social behaviors encouraged -anticipatory guidance reviewed: diet, exercise Assessment & Plan (10/03/2023 10:52 AM EST): -flu shot obtained at [facility] -has not received dental care in 4 years -has not had eye exam in several years -referral for dental and vision services placed Schizoaffective disorder, bipolar type 10/02/2023 Assessment & Plan (03/12/2025 11:27 AM EDT): -stable on current med regimen -referred to -drug therapy monitoring labs ordered Assessment & Plan (10/03/2023 12:06 PM EST): -stable at this time -continue on current medication regimen -referral to for therapy initiation and psych services ordered -lab ordered to evaluate for potential medication adverse effects Attention deficit hyperactiv ity disorder, predominantly inattentive type 05/28/2020 10/02/2023 Assessment & Plan (06/25/2025 2:18 PM EDT): - ADHD currently managed with Adderall XR 20 mg, however 30 day supply last dispensed 04/17/2025 - patient reports sub-optimal control with current dose. Discussed risk associated with mix of prescribed medications with recreational substances - Need for ADHD control for optimal functioning is acknowledged, however I am not comfortable with continuing to prescribe stimulants given concurrent substance use. - offered non stimulant Straterra for ADHD management while waiting to connect with Psych prescriber however patient declines - Informed need for specialize psych services for further management Assessment & Plan (03/12/2025 11:41 AM EDT): -increased adderall XR dosing to 20 mg every day -advised close monitoring for changes Posttraumatic stress disorder 05/28/2020 Paranoid personality disorder 05/28/2020 Psychoactive substance use disorder 05/28/2020 10/02/2023 Assessment & Plan (06/25/2025 1:54 PM EDT): - Methamphetamine use reported, last use at end of May 2025 with no reported use since then - Per pt therapist patient is also using cocaine in intermittent basis - Advised need for self-control and avoidance of substance relapse. No further intervention discussed. Encounters * This document contains information received from the source organization and may not represent a complete record from that organization. Date Type Department Care Team Description 06/25/2025 11:30 AM EDT Office Visit [facility] [address] [place] [phone] Dana Pires NP Attention deficit hyperactivity disorder, predominantly inattentive type (Primary Dx); Elevated CK; Psychoactive substance use disorder; High risk homosexual behavior; Severe major depression with psychotic features ([facility]) 06/25/2025 Travel 06/25/2025 Telephone [facility] [address] [place] [phone] Mendy Faustin RN 06/24/2025 Telephone [facility] [address] [place] [phone] Brigette Torres MA Chart Prep 06/20/2025 Travel 06/20/2025 Telephone [facility] [address] [place] [phone] Dana Pires NP 06/17/2025 Telephone [facility] [address] [place] [phone] Latesha Mcclure MA CHARTPREP 06/10/2025 Refill [facility] [address] [place] [address] Dana Pires NP DANNY (generalized anxiety disorder) from Last 3 Months Immunizations Immunization Administration Dates Next Due HPV, Quadrivalent 06/11/2015,02/09/2015,12/10/19 15 Hep A, Adult 12/08/2021 Hep A, ped/adol, 2 dose 06/11/2015,12/10/2014 Hep B, adult 10/24/2024,08/14/2018 Influenza Injectable Quadriv alant Preservative Free IIV4 MDCK 08/22/2023,09/21/2019 Influenza injectable quadriv alent preservative free 12/02/2020,12/13/2015,10/15/2014 Influenza, IIV3, injectable 08/12/2024 Meningococcal MCV4P ACYW-135 09/12/2012 Tdap 12/08/2021,11/14/2016 Varicella 09/23/2012 Family History Medical History Relation Name Comments Diabetes Mother Relation Name Status Comments Mother Social History Tobacco Use Types Packs/Day Years Used Date Smoking Tobacco: Former Cigarettes Passive Smoke Exposure: Never Smokeless Tobacco: Former Tobacco Cessation:Counseling Given: Not Answered Alcohol Use Standard Drinks/Week Comments Yes 2 (1 standard drink = 0.6 oz pur e alcohol) Sometimes every few months Alcohol Answer Date Recorded How often do you have a drink containing alcohol ? 1 12/31/2024 How many drinks containing a lcohol do you have on a typical day when you are drinking? 1 12/31/2024 How often do you have six or more drinks on one occasion? 0 12/31/2024 Depression Answer Date Recorded Patient Health Questionnaire-9 Score 6 12/24/2024 Patient Health Questionnaire-9 Score 6 12/24/2024 Last PHQ-9: Questionnaire Data Not on file 0 12/24/2024 Housing Stability Answer Date Recorded What is your housing situation today? I have sami salomon 10/20/[address] you li ve. Do you have problems with any of the following? None of the above 10/20/2024 Food Insecurity Answer Date Recorded Within the past 12 months, y ou worried that your food would run out before you got money to buy more: Sometimes True 2023 Within the past 12 months,th e food you bought just didn't last and you didn't have enough money to get more: Sometimes True 10/20/2024 Transportation Answer Date Recorded In the past 12 months, has l ack of transportation kept you from medical appts, meetings, work or from getting things needed for daily living? No 10/20/2024 Utilities Answer Date Recorded In the past 12 months, has t he electric, gas, oil or water company threatened to shut off services in your home? No 10/20/2024 Depression Answer Date Recorded Patient Health Questionnaire-2 Score 0 12/24/2024 Internet Access Answer Date Recorded Internet Access Q1 Yes 10/20/2024 Internet Access Q2 Not on file 10/20/2024 Sex and Gender Information Value Date Recorded Sex Assigned at Male 2022 10:36 AM EDT Legal Sex Male 10:36 AM EDT Gender Identity Male 2022 10:36 AM EDT Sexual Orientation Pansexual 06/13/2025 11 :39 PM EDT Last Filed Vital Signs Vital Sign Reading Time Taken Comments Blood Pressure 128/82 06/25/2025 11:47 AM EDT Pulse 110 06/25/2025 11:47 AM EDT Temperature 36.9 C (98.5 F) 06/25/2025 11:47 AM EDT Respiratory Rate 26 06/25/2025 11:47 AM EDT Oxygen Saturation 98% 06/25/2025 11:47 AM EDT Inhaled Oxygen Concentration - - Weight 89.1 kg (196 lb 6.4 oz) 06/25/2025 11:47 AM EDT Height 185.4 cm (6' 1 ) 06/25/2025 11:47 AM EDT Body Mass Index 25.91 06/25/2025 11:47 AM EDT Plan of Treatment Health Maintenance Due Date Last Done Comments Family Planning (PISQ) 2012 Hepatitis B Vaccines (3 of 3 - 19+ 3-dose series) 12/19/2024 10/24/2024, 08/14/2018 COVID-19 Vaccine ( season) 2025 12/14/2021, 05/27/2021, 04/12/2021 Influenza Vaccine (#1) 2025 , 08/22/2023, 12/02/2020, Additional history exists SDOH Screening 10/20/2025 10/20/2024 Alcohol/Substance Use Screening 10/24/2025 10/24/2024 Depression Screening 12/24/2025 12/24/2024, 12/24/19 Disability Screening 06/25/2026 06/25/2025 Tobacco Screening 06/25/2026 06/25/2025 DTaP/Tdap/Td Vaccines (3 - Td or Tdap) 12/08/2031 12/08/2021, 11/14/2016 Zoster Vaccines (1 of 2) 2047 RSV Patients and Patients Aged 60 years or older (1 - 1-dose 75+ series) 2072 Meningococcal Vaccine Aged Out 09/12/2012 No amanda bea eligible based on patient's age to complete this topic HPV Vaccines Completed 06/11/2015, 01/12, 12/10/2014 Hepatitis A Vaccines Completed 12/08/2021, 06/11/2015, 12/10/2014 HIV Screening Completed 06/21/2022 Hepatitis C Screening Completed 06/21/2022 HIB Vaccines Aged Out No longer eligi ble based on patient's age to complete this topic IPV Vaccines Aged Out No longer eligi ble based on patient's age to complete this topic Meningococcal B Vaccine Aged Out No l onger eligible based on patient's age to complete this topic Pneumococcal Vaccine: Pediatrics (0 to 5 Years) and At-Risk Patients (6 to 49) Years Aged Out No longer eligible based on patient's age to complete this topic RSV under 20 months Aged Out No longe r eligible based on patient's age to complete this topic Rotavirus Vaccines Aged Out No longer eligible based on patient's age to complete this topic Procedures Procedure Name Priority Date/Time Associated Diagnosis Comments ZZZ HISTORICAL HEPATITIS C AB W/REFL TO HCV RNA, QN, PCR Routine 06/21/2022 11:41 AM EDT HIV 1/2 ANTIGEN/ANTIBODY, FOURTH GENERATION W/RFL Routine 06/21/2022 11:41 AM EDT from Last 3 Months or Most Recently Relevant to Health Maintenance Results * HEPATITIS C AB W/REFL TO HCV RNA, QN, PCR (06/21/2022 11:41 AM EDT) HEPATITIS C ANTIBODY NON-REACT CHRIS NON-REACT CHRIS [facility] INDEX 0.13 <1.00 [facility] Comment: HCV antibody was non-reactive. There is no laboratory evidence of HCV infection. In most cases, no further action is required. However, if recent HCV exposure is suspected, a test for HCV RNA (test code 88694) is suggested. For additional information please refer to http://zeenworld.[employer]/faq/XFM53b8 (This link is being provided for informational/ educational purposes only.) 06/21/2022 11:4 1 AM EDT us Jocelyn Toshia FINANCIAL SERVICE PROFESSIONAL HISTORICAL/NON ORDERABLE LABS Final Result [facility] [address] * HIV 1/2 ANTIGEN/ANTIBODY,FOURTH GENERATION W/RFL (06/21/2022 11:41 AM EDT) HIV-1/2 ANTIGEN AND ANTIBODIES, 4TH GENERATION W/ REFLEX NON-REACT CHRIS NON-REACT CHRIS [facility] Comment: HIV-1 antigen and HIV-1/HIV-2 antibodies were not detected. There is no laboratory evidence of HIV infection. PLEASE NOTE: This information has been disclosed to you from records whose confidentiality may be protected by state law. If your state requires such protection, then the state law prohibits you from making any further disclosure of the information without the specific written consent of the person to whom it pertains, or as otherwise permitted by law. A general authorization for the release of medical or other information is NOT sufficient for this purpose. For additional information please refer to http://zeenworld.[employer]/faq/UGZ260 (This link is being provided for informational/ educational purposes only.) The performance of this assay has not been clinically validated in patients less than 2 years old. 06/21/2022 11:4 1 AM EDT us Jocelyn Toshia FINANCIAL SERVICE PROFESSIONAL LAB BLOOD ORDERABLES Final Res ult [facility] [address] from Last 3 Months or Most Recently Relevant to Health Maintenance Insurance [facility] C3 Care Teams Cover Stripper Relationship Specialty Start Date End Date Dana Pires NP [address] [place] [id number] PCP - General Family Medicine 10/03/23
--- OUTSIDE RECORDS SUMMARY | 2025-07-21 18:23 | XMS_ITS | Encounter Summary ---
Author Organization [employer] Address [address] [place] [address] [address] [place] [address] Care Team Providers Care Finishing Room Operator Name Role Phone Dana Pires NP Primary Care Provider [phone] Vinicio Dumont RN Unavailable [phone] Reason for Visit * Reason Comments Med Refill Encounter Details Date Type Department Care Team ([facility] st Contact Info) Description 06/12/2024 Refill [facility] [address] [place] [address] Dana Pires NP [address] [place] [address] Bipolar affective disorder, remission status unspecified (CMS/[facility]) Social History Tobacco Use Types Packs/Day Years [...] Diagnosis Bipolar affective disorder, remission status unspecified ([facility]) documented in this encounter Additional Health Concerns Assessment Noted Time PHQ-9 Depression Total Score: 0 10/03/20 9:10 AM EST documented as of this encounter Care Teams Finishing Room Operator Relationship Specialty Start Date End Date Dana Pires NP [address] [place] [address] PCP - General Family Medicine 10/03/23 Vinicio Dumont RN [address] [place] [address] Die AssemblerReverse Engineer 10/16/24 02/01/25 documented as of this encounter
--- OUTSIDE RECORDS SUMMARY | 2025-07-21 18:23 | XMS_ITS | Clinical Summary ---
Author Organization [facility] Address [address] [place] [address] Care Team Providers Care Home Energy Rater Name Role Phone Unavailable Primary Care Provider Unavailabl e Allergies No known active allergies Medications traZODone (DESYREL) 150 MG tablet Take 1 tablet (150 mg total) by mouth nightly. 04/14/2025 Active QUEtiapine (SEROquel) 50 MG tablet Take 1 tablet (50 mg total) by mouth nightly. 04/14/2025 Active OLANZapine (ZyPREXA) 10 MG tablet Take 1 tablet (10 mg total) by mouth nightly. 03/04/2025 Active hydrOXYzine pamoate (VISTARIL) 25 MG capsule Take 1 capsule (25 mg total) by mouth 4 times daily (every 6 hours) as needed. 04/14/2025 Active buPROPion (WELLBUTRIN XL) 300 MG 24 hr tablet Take 1 tablet (300 mg total) by mouth every morning. 04/14/2025 Active amphetamine-dex troamphetamine (ADDERALL XR) 20 MG 24 hr capsule Take 1 capsule (20 mg total) by mouth every morning. 04/14/2025 Active Active Problems Problem Noted Date Diagnosed Date Rhabdomyolysis 04/17/2025 Sleep disorder 04/14/2025 Class 1 obesity 09/24/2024 DANNY (generalized anxiety disorder) 08/18/2024 Severe major depression with psychotic features 08/18/2024 H/O vitamin D deficiency 10/03/2023 Subclinical hyperthyroidism 10/03/2023 Attention deficit hyperactiv ity disorder, predominantly inattentive type 05/28/2020 Paranoid personality disorder 05/28/2020 Schizoaffective disorder, bipolar type 0 Immunizations Immunization Administration Dates Next Due HPV Quadrivalent 06/11/2015,02/09/2015, 5 Hep A, 2 Dose 06/11/2015,12/10/2014 Hepatitis A 12/08/2021 Hepatitis B 10/24/2024,08/14/2018 Influenza Virus Trivalent Sp lit Vaccine (MDV) IM 08/12/2024 Influenza, Quadrivalent (FLU ARIX, AFLURIA, FLULAVAL, FLUZONE) Preservative Free IM 12/02/2020,12/13/2015,10/15/2014 Influenza, Quadrivalent (FLU CELVAX) MDCK, Preservative Free IM 08/22/2023,09/21/2019 Meningococcal MCV4P (Menactra) 09/12/2012 Tdap 12/08/2021,11/14/2016 Varicella 09/23/2012 Social History Tobacco Use Types Packs/Day Years Used Date Smoking Tobacco: Never Assessed Sex and Gender Information Value Date Recorded Sex Assigned at Male 04/16/2025 4:58 PM EDT Legal Sex Male 2:58 PM EDT Gender Identity Male 04/16/2025 4:58 PM EDT Sexual Orientation Heterosexual (straight) 04/16 4:58 PM EDT Last Filed Vital Signs Vital Sign Reading Time Taken Comments Blood Pressure 125/68 04/17/2025 1:51 PM EDT Pulse 95 04/17/2025 1:51 PM EDT Temperature 35.9 C (96.7 F) 04/17/2025 1:51 PM EDT Respiratory Rate 18 04/17/2025 1:51 PM EDT Oxygen Saturation 98% 04/17/2025 1:51 PM EDT Inhaled Oxygen Concentration - - Weight 109 kg (240 lb) 04/16/2025 3:31 PM EDT Height 185.4 cm (6' 1 ) 04/16/2025 3:31 PM EDT Body Mass Index 31.66 04/16/2025 3:31 PM EDT Plan of Treatment Health Maintenance Due Date Last Done Comments Hepatitis C Virus Screening 1997 COVID-19 Vaccine ( season) 2024 Hepatitis B Vaccines (3 of 3 - 19+ 3-dose series) 12/19/2024 10/24/2024, 08/14/2018 Influenza Vaccine 06/12/2025 08/12/2024, , 12/02/2020, Additional history exists DTaP/Tdap/Td Vaccines (3 - Td or Tdap) 12/08/2031 12/08/2021, 11/14/2016 HPV Vaccines Completed 06/11/2015, 01/12, 12/10/2014 HIV Screening Completed 06/21/2022 Pneumococcal Vaccine: Pediatric (0-5 Years) and At-Risk Patients (6 to 49 Years) Aged Out No longer eligible based on patient's age to complete this topic Insurance [facility] Advance Directives * Full Code (Latest Code Status on File) Date Activated Date Inactivated Comments 04/17/2025 8:44 AM
--- OUTSIDE RECORDS SUMMARY | 2025-07-21 18:23 | XMS_ITS | Encounter Summary ---
Author Organization [employer] Address [address] [place] [address] [address] [place] [address] Care Team Providers Care Apprentice Machinist Outside Name Role Phone Dana Pires NP Primary Care Provider [phone] Vinicio Dumont RN Unavailable Reason for Visit * Reason Comments Med Refill Encounter Details Date Type Department Care Team ([facility] st Contact Info) Description 12/19/2023 Refill [facility] [address] [place] [address] Dana Pires NP [address] [place] [address] Bipolar affective disorder, remission status unspecified (CMS/[facility]) Social History Tobacco Use Types Packs/Day Years [...] Diagnosis Bipolar affective disorder, remission status unspecified ([facility]) documented in this encounter Additional Health Concerns Assessment Noted Time PHQ-9 Depression Total Score: 0 10/03/20 9:10 AM EST documented as of this encounter Care Teams Apprentice Machinist Outside Relationship Specialty Start Date End Date Dana Pires NP [address] [place] [address] PCP - General Family Medicine 10/03/23 Vinicio Dumont RN [address] [place] [address] Guest AdvisorJapanese Professor 10/16/24 02/01/25 documented as of this encounter
[2025-07-21 18:38] LABS: MANUAL DIFF FLAG NO
[2025-07-21 18:40] LABS: Hematocrit 42.7 % (42.0-52.0); Hemoglobin 15.1 g/dl (14.0-18.0); Imm Gran Abs Auto 0.03 X10*3/uL (0.00-0.03); Imm Gran Pct Auto 0.3 % (0.0-0.4); Lymphocytes Absolute Auto 2.1 X10*3/uL (1.2-4.9); Mean Corpuscular HGB Conc 35.4 g/dl (31.0-36.0); Mean Corpuscular Hemoglobin 26.4 pg (27.0-33.0); Mean Corpuscular Volume 74.5 fL (80.0-98.0); NRBC Abs Auto 0.000 X10*3/uL (0.0-0.012); NRBC Pct Auto 0.0 /100WBC (0.0-0.2); Platelet Count 247 X10*3/uL (160-400); Red Blood Count 5.73 X10*6/uL (4.60-5.80); White Blood Count 11.2 X10*3/uL (4.8-10.8)
[2025-07-21 18:58] LABS: Alanine Aminotransferase 8 U/L (0-40); Albumin Level 4.5 g/dL (3.5-5.0); Alkaline Phosphatase 71 U/L (39-117); Anion Gap 14 (12-20); Aspartate Amino Transferase 20 U/L (5-37); Blood Urea Nitrogen 4 mg/dL (9-16); Calcium 9.3 mg/dL (8.4-10.2); Carbon Dioxide 25 mmol/L (22-29); Chloride 108 mmol/L (96-108); Creatinine Clr Calc Pharmacy 123.1; Estimated Glomerular Filt Rate > 60; Potassium 3.5 mmol/L (3.3-5.1); Sodium 143 mmol/L (135-145); Total Protein 7.3 g/dL (6.5-8.0)
[2025-07-21 19:01] LABS: Acetaminophen LAB < 3 mcg/mL (<30); Salicylate < 5.0 mg/dL (15-30)
[2025-07-21 19:20] LABS: Cannabinoid Screen Urine POSITIVE (Not Detect)
[2025-07-21 20:22] VITALS: BP 108/63; PULSE 106; RESP 16; TEMP 36.6; O2SAT 97
--- NOTE | 2025-07-21 20:28 | PC.NURSE ---
Pt and mother now requesting detox help. Provider made aware. Patient to be fully changed over in order to go to POD once fluids are completed. contour band saw operator verticalOLGA Kuhn aware.
--- NOTE | 2025-07-21 20:44 | PC.NURSE ---
2nd L infused, IV removed. Patient changed into aleshia pants. Mom escorted to WR by t/w. Mom took ALL PATIENT BELONGINGS, no belongings transferred with patient into pod. Report given to Rosibel ESPINOZA.
--- NOTE | 2025-07-21 20:49 | PC.NURSE ---
Patient alert and oriented x3: self, place, and familiar person, unable to state current date, cooperative, denies SI/HI. Patient oriented to behavioral pod room, currently resting in bed in no distress, , awaiting to be seen by care team.
--- NOTE | 2025-07-21 22:13 | MHC.CARE ---
T/w attempted to see pt. and he still appears to be under the influence. Pt. requesting CARE team to come back at a later time due to current presentation.
[2025-07-22 06:19] VITALS: BP 131/71; PULSE 110; RESP 20; TEMP 36.7; O2SAT 98
--- NOTE | 2025-07-22 06:24 | PC.NURSE ---
Patient is fully awake, ambulated to the restroom independently with a steady gait. Patient requested curtis wes, provided and tolerated well. Patient offers no complaints at present, awaiting to be seen by care team.
--- NOTE | 2025-07-22 07:33 | PC.NURSE ---
Assumed care of pt this morning. Pt currently asleep, resp even and nonlaboured.
--- NOTE | 2025-07-22 09:50 | MHC.CARE ---
Pt does not meet the criteria for a higher level of care and is safe to D/C home. ED provider in agreement.
[2025-07-22 10:03] VITALS: BP 137/85; PULSE 85; RESP 20; TEMP 36.1; O2SAT 100
== END 2025-07-22 10:06 | disposition home or self-care (01) ==
PROVIDERS: Emergency Provider Emergency Medicine Emergency Medical Services
DX: F16.121 Hallucinogen abuse with intoxication with delirium (principal); R41.82 Altered mental status, unspecified; R11.0 Nausea; R00.0 Tachycardia, unspecified; Z79.899 Other long term (current) drug therapy; Z51.81 Encounter for therapeutic drug level monitoring
CPT/HCPCS: 36415; 80048; 80076; 80143; 80179; 80307; 85025; 93005; 96360; 96361; 99284; 99285; S9485

== ENCOUNTER → 2025-07-21 17:57 | Outpatient (BNV) | payer MEDICAID, SELFPAY | PROVIDERS: Emergency Provider Emergency Medicine Emergency Medical Services; Visit Provider Internal Medicine Cardiovascular Disease | DX: R00.0 Tachycardia, unspecified (principal) | CPT/HCPCS: 93010 ==

== ENCOUNTER 2025-08-04 18:42 | Inpatient (IN) | payer MEDICAID, OTHER, SELFPAY ==
[2025-08-04 18:58] VITALS: RESP 18; BMI 27.3
[2025-08-04 19:09] VITALS: BP 144/82; PULSE 97; RESP 17; TEMP 36.6; O2SAT 99
[2025-08-04 19:46] LABS: MANUAL DIFF FLAG NO
[2025-08-04 19:48] LABS: Hematocrit 40.2 % (42.0-52.0); Hemoglobin 14.0 g/dl (14.0-18.0); Imm Gran Abs Auto 0.04 X10*3/uL (0.00-0.03); Imm Gran Pct Auto 0.5 % (0.0-0.4); Lymphocytes Absolute Auto 3.4 X10*3/uL (1.2-4.9); Mean Corpuscular HGB Conc 34.8 g/dl (31.0-36.0); Mean Corpuscular Hemoglobin 26.6 pg (27.0-33.0); Mean Corpuscular Volume 76.4 fL (80.0-98.0); NRBC Abs Auto 0.000 X10*3/uL (0.0-0.012); NRBC Pct Auto 0.0 /100WBC (0.0-0.2); Platelet Count 246 X10*3/uL (160-400); Red Blood Count 5.26 X10*6/uL (4.60-5.80); White Blood Count 7.7 X10*3/uL (4.8-10.8)
[2025-08-04 19:51] LABS: Appearance Urine Clear; Glucose Urine UA Negative (Negative); PH 5.5 (5.0-9.0); Specific Gravity - Urine 1.015 (1.005-1.025); UMIC TRIGGER UACC YES
[2025-08-04 19:58] LABS: Cannabinoid Screen Urine POSITIVE (Not Detect)
--- NOTE | 2025-08-04 20:04 | ED_ITS ---
HPI - Psych General Chief Complaint: Psychiatric Symptoms Stated Complaint: crisis Source: patient and EMS Mode of arrival: EMS Limitations: altered mental status History of Present Illness ED Provider: REMY Núñez HPI Narrative: This is a 29-year-old male history of cocaine use disorder, bipolar disorder presenting to the emergency department with manic/paranoid behavior. Patient unable to tell me history he tells me ?I do not want to talk ?. When I asked EMS what is going on they tell me mom called 911 he has been manic/paranoid for a few weeks. He is not providing much of a history. He appears to be very scared, guarded. Unable to obtain review of systems or history from patient. Related Data Previous Rx's ?Medication ?Instructions ?Recorded albuterol sulfate 90 mcg/actuation 2 puff inhalation R Q4H PRN sob 30 02/20/24 aerosol inhaler (Ventolin HFA) days #6.7 grams hydroxyzine HCl 25 mg tablet 25 mg PO Q6H PRN Anxiety 30 days 02/20/24 #60 tabs olanzapine 10 mg tablet 10 mg PO BEDTIME 30 days #30 tabs 02/20/24 oxcarbazepine 600 mg tablet 600 mg PO BID 30 days #60 tabs 02/20/24 sertraline 100 mg tablet 100 mg PO DAILY 30 days #30 tabs 02/20/24 trazodone 150 mg tablet 150 mg PO BEDTIME 30 days #3 0 tabs 02/20/24 Allergies Allergy/AdvReac Type Severity Reaction Status Date / Time No Known Allergies Allergy Verified 08/04/25 19:01 Review of Systems 2 Review of Systems: Yes Unobtainable due to mental status PMFSH Past Medical History Attestation statement: The following information was validated with the patient. Source: old records reviewed and nursing notes reviewed Medical History Asthma Bipolar 1 disorder Surgical History No significant past surgical history Social History Social History (System 10/08/23 @ 11:23 by Krystyna Flores) Household Members: Family and Friend(s) Housing: Apartment Do you presently have visiting nurse or other home services: No Alcohol intake: current Alcohol intake frequency: a few times a week Alcohol type: hard liquor Comment: asleep Patient Tobacco Use Status: Never used Tobacco Smoked in Last 30 Days: Yes e-Cigarette/Vaping Use: Never Used Second Hand Smoke Exposure: No Use of substances other than those prescribed or required for medical reasons: Yes Substance Use Type: Marijuana Advance Directives: No Advance Directives Information Provided: No Do you have a plan to hurt others: No Plan service: No Sexual orientation: Lesbian/Duff/Homosexual Physical Exam 2 Exam: Exam: Appearance: Alert.? Oriented X3.? No acute distress.?+ paranoid behavior Head: Normocephalic, atraumatic, no step-offs or deformities Eyes: Pupils equal, round and reactive to light.? ENT: Pharynx normal.? Neck: Normal inspection.? Neck supple.? CVS: Normal heart rate and rhythm.? Pulses normal.? Respiratory: No respiratory distress.? Breath sounds normal.? Abdomen: Soft and nontender.? Skin: Skin warm and dry.? Normal skin color.? Normal skin turgor.? Extremities: No lower extremity edema.? No calf ttp. 5/5 strength to bilateral upper and lower extremities Back: No midline tenderness, no C-spine tenderness, full range of motion, no CVA tenderness bilaterally Neuro: Oriented X 3.? No motor deficit.? No sensory deficit. CN 2-12 intact Vital Signs: Vital Signs: Last Vital Signs Temp 98.6 F 08/05/25 08:09 Pulse 100 08/05/25 08:09 Resp 18 08/05/25 08:09 BP 119/78 08/05/25 08:09 Pulse Ox 98 08/05/25 08:09 O2 Del Method Room Air 08/05/25 08:09 BMI result Body Mass Index 27.3 vss Course Reevaluation(s) Reevaluation #1: CBC unremarkable. Chemistry pending. Urine with no acute findings needing intervention. Urine toxicology positive for marijuana. At this time patient will be placed into observation to allow more time to be evaluated by care team. At time observation was started patient common cooperative no acute distress will continue to monitor Time: 20:09 Reevaluation #2: Time: Date: 08/05/25 Provider: DR. Sofia Patient in physician observation for psychiatric evaluation.? No acute events reported overnight. No current complaints. VS stable.? Patient is in bed search status. Will continue to monitor. Reevaluation #3: Patient will be admitted to , discontinue physician observation now. Time: 11:17 Medications Administered Generic Name Dose Route Start Last Admin Trade Name Freq PRN Reason Stop Dose Admin Olanzapine 10 mg 08/04/25 22:45 08/04/25 22:59 Olanzapine 10 Mg Tablet PO Not Given BEDTIME RAY Oxcarbazepine 600 mg 08/05/25 09:00 08/05/25 08:19 Oxcarbazepine 300 Mg Tablet PO 600 mg BID RAY Administration Sertraline HCl 100 mg 08/05/25 09:00 08/05/25 08:19 Sertraline Hcl 100 Mg Tablet PO 100 mg DAILY RAY Administration Trazodone HCl 150 mg 08/04/25 22:45 08/04/25 22:59 Trazodone Hcl 50 Mg Tablet PO Not Given BEDTIME RAY Discontinued Medications Generic Name Dose Route Start Last Admin Trade Name Freq PRN Reason Stop Dose Admin Lorazepam 2 mg 08/04/25 21:01 08/04/25 21:07 Lorazepam 1 Mg Tablet PO 08/04/25 21:02 2 mg ONCE ONE Administration Olanzapine 5 mg 08/04/25 21:01 08/04/25 21:07 Olanzapine 5 Mg Tablet PO 08/04/25 21:02 5 mg ONCE ONE Administration Medical Decision Making Medical Decision Making [facility] Narrative: 1998 29-year-old male presents with paranoia and manic behavior for weeks. Physical exam patient manic and paranoid History and physical exam concerning for bipolar versus schizophrenia versus polysubstance abuse. Unlikely metabolic derangements. Unlikely encephalitis, meningitis. Plan medical clearance evaluation by care team Differential Diagnosis Differential Diagnoses: The differential diagnosis associated with the presentation includes (History and physical exam concerning for bipolar versus schizophrenia versus polysubstance abuse. Unlikely metabolic derangements. Unlikely encephalitis, meningitis.) Admission/Observation Consideration of admission/observation: Escalation of care including admission/observation considered (hector psych admit ) Consult Healthcare Provider Management of the patient was discussed with: Accountant Clerk (CARE) Lab Data [facility] Lab Attestation statement: I reviewed the patient's lab results. 08/04/25 19:38 08/04/25 19:35 Labs: Lab Results 08/04/25 08/04/25 Range/Units 19:35 19:38 WBC 7.7 (4.8-10.8) X10*3/uL RBC 5.26 (4.60-5.80) X10*6/uL Hgb 14.0 (14.0-18.0) g/dl Hct 40.2 L (42.0-52.0) % MCV 76.4 L (80.0-98.0) fL MCH 26.6 L (27.0-33.0) pg MCHC 34.8 (31.0-36.0) g/dl RDW 14.6 (11.0-16.0) % Plt Count 246 (160-400) X10*3/uL MPV 9.5 (9.4-12.4) fL Immature Gran % (Auto) 0.5 H (0.0-0.4) % Neut % (Auto) 50.3 (45-73) % Lymph % (Auto) 43.7 H (20-40) % [place] % (Auto) 4.8 (2-11) % Eos % (Auto) 0.6 (0-4) % Baso % (Auto) 0.1 (0-2) % Lymph # (Auto) 3.4 (1.2-4.9) X10*3/uL [place]entry # (Auto) 0.4 (0.1-1.2) X10*3/uL Eos # (Auto) 0.1 (0.0-0.4) X10*3/uL Baso # (Auto) 0.0 (0.0-0.2) X10*3/uL Abs Immat Gran (auto) 0.04 H (0.00-0.03) X10*3/uL Absolute Neuts (auto) 3.9 (2.0-8.3) x10*3/uL Absolute Nucleated RBC 0.000 (0.0-0.012) X10*3/uL Nucleated RBC % (auto) 0.0 (0.0-0.2) /100WBC Sodium 143 (135-145) mmol/L Potassium 4.3 D (3.3-5.1) mmol/L Chloride 108 (96-108) mmol/L Carbon Dioxide 28 (22-29) mmol/L Anion Gap 11 L (12-20) BUN 7 L (9-16) mg/dL Creatinine 0.71 (0.5-1.4) mg/dL Estim Creat Clear Calc 156.2 Estimated GFR > 60 Fasting Glucose 93 (60-99) mg/dL Calcium 9.0 (8.4-10.2) mg/dL Total Bilirubin 0.9 (0.0-1.0) mg/dL AST 16 (5-37) U/L ALT 7 (0-40) U/L Alkaline Phosphatase 85 (39-117) U/L Total Protein 7.3 (6.5-8.0) g/dL Albumin 4.2 (3.5-5.0) g/dL Urine Color Yellow Urine Appearance Clear Urine pH 5.5 (5.0-9.0) Ur Specific [place] 1.015 (1.005-1.025) Urine Protein Negative (Neg-Trace) mg/dL Urine Glucose (UA) Negative (Negative) mg/dL Urine Ketones Negative (Negative) mg/dL Urine Blood Negative (Negative) Urine Nitrite Negative (Negative) Ur Leukocyte Esterase Trace H (Negative) Urine RBC 0-2 (0-2) /HPF Urine WBC 0-5 (0-5) /HPF Ur Squamous Epith Cells 0-2 (0-2) /HPF Urine Bacteria None Seen (None Seen) Hyaline Casts 0-2 (0-2) /LPF Salicylates < 5.0 L (15-30) mg/dL Urine Opiates Screen Not Detected (Not Detect) Ur Buprenorphine Scrn Not Detected (Not Detect) ng/mL Ur Oxycodone Screen Not Detected (Not Detect) ng/mL Urine Methadone Screen Not Detected (Not Detect) ng/mL Urine Fentanyl Screen Not Detected (Not Detect) Acetaminophen < 3 (<30) mcg/mL Ur Barbiturates Screen Not Detected (Not Detect) Ur Phencyclidine Scrn Not Detected (Not Detect) Ur Amphetamines Screen Not Detected (Not Detect) U Benzodiazepines Scrn Not Detected (Not Detect) Urine Cocaine Screen Not Detected (Not Detect) U Marijuana (THC) Screen POSITIVE H (Not Detect) Ethyl Alcohol < 10 mg/dL Independent Historian Clinical information obtained from an independent historian. History obtained from or confirmed by: EMS Care team spoke to mother mother reports this is been going on for months. External Record Review External record reviewed: Inpatient record, Office record, Outpatient record, Prior outpatient labs, Prior outpatient radiology, Primary care record and Outside ED record Chronic Conditions Patient?s care impacted by: Other (see hpi ) Social Determinants Patient?s care significantly limited by Social Determinants of Health including: Other Social Determinant of Health Critical Care Time Critical Care Time Critical Care Time: No Discharge Plan Discharge Clinical Impression: Bipolar disorder, Acute psychosis Patient Disposition: Admitted As Inpatient Interventions: [place]-Suicide Risk Severity Scale Last Done: 08/04/25 19:46 Print Language: Lao
[2025-08-04 20:08] LABS: Alanine Aminotransferase 7 U/L (0-40); Albumin Level 4.2 g/dL (3.5-5.0); Alkaline Phosphatase 85 U/L (39-117); Anion Gap 11 (12-20); Aspartate Amino Transferase 16 U/L (5-37); Blood Urea Nitrogen 7 mg/dL (9-16); Calcium 9.0 mg/dL (8.4-10.2); Carbon Dioxide 28 mmol/L (22-29); Chloride 108 mmol/L (96-108); Creatinine Clr Calc Pharmacy 156.2; Estimated Glomerular Filt Rate > 60; Potassium 4.3 mmol/L (3.3-5.1); Sodium 143 mmol/L (135-145); Total Protein 7.3 g/dL (6.5-8.0)
[2025-08-04 20:09] LABS: Acetaminophen LAB < 3 mcg/mL (<30); Salicylate < 5.0 mg/dL (15-30)
--- NOTE | 2025-08-04 20:45 | PC.NURSE ---
at approximately this time this pt exited his room and attempted to use the POD phone to speak w/ an unnamed individual 2046: pt began yelling on the phone and slamming it against the wall, this RN called security to watch cameras in the POD for safety 2048: pt began yelling to this RN, slamming POD phone, slamming fist against wall, tech's attempting to redirect the pt, pt began threatening staff, security was on the phone and stated they will be coming into the POD to attempt deescalation 2050: pt continued yelling and slamming fist against benedict and doors,not following basic commands, security speaking w/ in attempt to deescalate the behavior 2052: provider David Hooks made aware of the pt increased agitation, pending new orders 2054:pt ambulated to his room, security continuing to speak w/ pt in attempt to deescalate 2056: provider David Hooks at the pt bedside w/ security assessing the pt, pending new orders 2099: pt deescalated, more calm and cooperative, agreeing to receive medication for agitation, orders placed 2100: pt medicated per JAN
--- OUTSIDE RECORDS SUMMARY | 2025-08-04 21:13 | XMS_ITS | Clinical Summary ---
Author Organization [facility] Address [address] [place] [address] Care Team Providers Care Automotive Electrical Fitter Name Role Phone Unavailable Primary Care Provider Unavailabl e Source Comments PLEASE NOTE, if this patient is a minor, it may be UNLAWFUL to discuss sensitive information that is contained in these records (such as FAMILY PLANNING, MENTAL HEALTH or SUBSTANCE ABUSE) with the minor patient's parent or other person without the patient's specific authorization.[facility] Social History Tobacco Use Types Packs/Day Years Used Date Smoking Tobacco: Never Assessed Sex and Gender Information Value Date Recorded Sex Assigned at Male 05/01/2025 7:15 AM PDT Legal Sex Male 7:15 AM PDT Gender Identity Male 05/01/2025 7:15 AM PDT Sexual Orientation Not on file Plan of Treatment Upcoming Encounters Date Type Department Care Team (Late st Contact Info) Description 08/13/2025 11:00 AM EDT Behavioral Health Visit [facility] [address] [place] [id number] Danae Smith APRN [address] [place] [address] Health Maintenance Due Date Last Done Comments Anxiety Screening 1997 Hepatitis C Screening 1997 Tobacco Screening 1997 Hypertension Screening (#1) 2015 Alcohol and Drug Screen 11/12/2024 Depression Annual Screen 11/12/2024 Imm-Hepatitis B (3 of 3 - 19 + 3-dose series) 12/19/2024 10/24/2024, 08/14/2018 [id number] ( season) 2025 12/14/2021, 05/27/2021, 04/12/2021 Imm-Influenza (#1) 2025 08/12/2024, 1 , 12/02/2020, Additional history exists Imm-DTaP/Tdap/Td (3 - Td or Tdap) 12/08/2031 022, 11/14/2016 Imm-HPV Completed 06/11/2015, 01/12, 12/10/2014 HIV Screening Completed 06/21/2022, 06/21/2022
--- OUTSIDE RECORDS SUMMARY | 2025-08-04 21:13 | XMS_ITS | Encounter Summary ---
Author Organization [employer] Address [address] [place] [address] [address] [place] [address] Care Team Providers Care Manager Support Services Name Role Phone Dana Pires NP Primary Care Provider [phone] Vinicio Dumont RN Unavailable [phone] Reason for Visit * Reason Comments Med Refill Encounter Details Date Type Department Care Team ([facility] st Contact Info) Description 01/29/2024 Refill [facility] MEDICINE [address] [place] [address] Dana Pires NP [address] [place] [address] Bipolar affective disorder, remission status unspecified (CMS/[facility]) Social History Tobacco Use Types Packs/Day [...] Diagnosis Bipolar affective disorder, remission status unspecified ([facility]) documented in this encounter Additional Health Concerns Assessment Noted Time PHQ-9 Depression Total Score: 0 10/03/20 9:10 AM EST documented as of this encounter Care Teams Manager Support Services Relationship Specialty Start Date End Date Dana Pires NP [address] [place] [address] PCP - General Family Medicine 10/03/23 Vinicio Dumont RN [address] [place] [address] Acid Crane OperatorMarine Equipment Design Engineer 10/16/24 02/01/25 documented as of this encounter
--- OUTSIDE RECORDS SUMMARY | 2025-08-04 21:13 | XMS_ITS | Encounter Summary ---
Author Organization [employer] Address [address] [place] [address] [address] [place] [address] Care Team Providers Care Turning Lathe Tender Name Role Phone Dana Pires NP Primary Care Provider [phone] Vinicio Dumont RN Unavailable [phone] Reason for Visit * Reason Comments Med Refill Encounter Details Date Type Department Care Team ([facility] st Contact Info) Description 12/19/2023 Refill [facility] MEDICINE [address] [place] [address] Dana Pires NP [address] [place] [address] Bipolar affective disorder, remission status unspecified (CMS/[facility]) Social History Tobacco Use Types Packs/Day [...] Diagnosis Bipolar affective disorder, remission status unspecified ([facility]) documented in this encounter Additional Health Concerns Assessment Noted Time PHQ-9 Depression Total Score: 0 10/03/20 9:10 AM EST documented as of this encounter Care Teams Turning Lathe Tender Relationship Specialty Start Date End Date Dana Pires NP [address] [place] [address] PCP - General Family Medicine 10/03/23 Vinicio Dumont RN [address] [place] [address] Laborer DriverResident Assistant 10/16/24 02/01/25 documented as of this encounter
--- OUTSIDE RECORDS SUMMARY | 2025-08-04 21:13 | XMS_ITS | Clinical Summary ---
Author Organization [employer] Address [address] [facility] [address] [place] [address] Care Team Providers Care Cyber Systems Operations Specialist Name Role Phone Dana Pires NP Primary Care Provider [phone] Allergies No known active allergies Medications * [...] with his uncle. He was referred to [facility] for OP therapy and psychiatry services. Currently on medication (reports improvement). PCP is managing medication but due to symptom's severity psychiatry services are needed and recommended. Pt reports he completed the intake forms but still waiting for services. clinician engaged patient with active/reflective listening. Reviewed and assessed for risk, current stressors and protective factors using open-ended questions. Provided information for [facility] crisis line and [facility] help line. Subclinical hyperthyroidism 10/03/2023 Assessment & [...] 10:52 AM EST): -[facility] -has not received dental care in 4 [...] Description 06/25/2025 11:30 AM EDT Office Visit [facility] MEDICINE [address] [place] [address] Dana Pires NP Attention deficit hyperactivity disorder, predominantly inattentive type (Primary Dx); Elevated CK; Psychoactive substance use disorder; High risk homosexual behavior; Severe major depression with psychotic features ([facility]) 06/25/2025 Travel 06/25/2025 Telephone [facility] MEDICINE [address] [place] [address] Mendy Faustin RN 06/24/2025 Telephone [facility] MEDICINE [address] [place] [address] Brigette Torres MA Chart Prep 06/20/2025 Travel 06/20/2025 Telephone [facility] WALK-IN CENTER [address] [place] [address] Dana Pires NP 06/17/2025 Telephone [facility] MEDICINE [address] [place] [address] Latesha Mcclure MA CHARTPREP 06/10/2025 Refill [facility] MED & PEDS [address] [place] [address] Dana Pires NP DANNY (generalized anxiety disorder) [...] HEPATITIS C ANTIBODY NON-REACT CHRIS NON-REACT CHRIS [facility] INDEX 0.13 <1.00 [facility] Comment: HCV antibody was non-reactive. There is no laboratory evidence of HCV infection. In most cases, no further action is required. However, if recent HCV exposure is suspected, a test for HCV RNA (test code 91814) is suggested. For additional information please refer to http://[employer]/faq/KAU82e6 (This link is being provided for informational/ educational purposes only.) 06/21/2022 11:4 1 AM EDT us Jocelyn Toshia ELEMENTARY SCHOOL BAND DIRECTOR HISTORICAL/NON ORDERABLE LABS Final Result [facility] [address] * HIV 1/2 ANTIGEN/ANTIBODY,FOURTH GENERATION W/RFL (06/21/2022 11:41 AM EDT) HIV-1/2 ANTIGEN AND ANTIBODIES, 4TH GENERATION W/ REFLEX NON-REACT CHRIS NON-REACT CHRIS [facility] Comment: HIV-1 antigen and HIV-1/HIV-2 [...] purpose. For additional information please refer to http://[employer]vig/faq/AYB602 (This link is being provided for informational/ educational purposes only.) The performance of this assay has not been clinically validated in patients less than 2 years old. 06/21/2022 11:4 1 AM EDT us Jocelyn Toshia ELEMENTARY SCHOOL BAND DIRECTOR LAB BLOOD ORDERABLES Final Res ult [facility] [address] from Last 3 Months or Most Recently Relevant to Health Maintenance Insurance [facility] C3 Care Teams Cyber Systems Operations Specialist Relationship Specialty Start Date End Date Dana Pires NP [address] [place] [id number] PCP - General Family Medicine 10/03/23
--- OUTSIDE RECORDS SUMMARY | 2025-08-04 21:13 | XMS_ITS ---
Author Name [facility] Organization Unknown Results Test Name/Text Value Interpretation Date Range Source T. pallidum IgG+IgM Ser QI IA Nonreactive 04/20/2025 - HHCCT CK SerPl-cCnc 2419.0 U/L Critically high 04/17/2025 24 - 204 HHCCT Folate SerPl-mCnc 13.9 ng/mL 04/17/2025 7.2 - HHCCT Vit B12 SerPl-mCnc 514.0 pg/mL 04/17/2025 243 - 89 4 HHCCT Salicylates SerPl-mCnc <1.0 mg/dL Below low normal 5 15 - 30 HHCCT APAP SerPl-mCnc <5.0 mg/L Below low normal 04/17/2025 10 - 3 0 HHCCT CK SerPl-cCnc 2578.0 U/L Critically high 04/17/2025 24 - 204 H[facility]CT BUN/Creat SerPl 6.0 Ratio Below low normal 04/17/2025 10 - 2 5 HHCCT Anion Gap Bld-sCnc 11.0 04/17/2025 7 - 17 HHCCT Potassium SerPl-sCnc 3.6 mmol/L 04/17/2025 3.4 - 5 .3 HHCCT Glucose SerPl-mCnc 81.0 mg/dL 04/17/2025 65 - 99 HHCCT Chloride SerPl-sCnc 104.0 mmol/L 04/17/2025 98 - 1 07 HHCCT GFR/BSA.pred SerPlBld DMY-GYD-UtKEsz >90.0 04/17/2025 59 - HHCCT Prot SerPl-mCnc 6.8 g/dL 04/17/2025 6.3 - 8.[address] Bilirub SerPl-mCnc 2.0 mg/dL Above high normal 04/17/2025 0. 2 - 1 HHCCT Albumin/Glob SerPl 1.2 Ratio 04/17/2025 1 - 3 HHCCT Sodium SerPl-sCnc 140.0 mmol/L 04/17/2025 136 - 14 5 HHCCT BUN SerPl-mCnc 7.0 mg/dL Below low normal 04/17/2025 8 - 21 HHCCT CO2 SerPl-sCnc 25.0 mmol/L 04/17/2025 22 - 33 HH CCT Calcium SerPl-mCnc 8.5 mg/dL Below low normal 04/17/2025 8.7 - 10.5 HHCCT AST SerPl-cCnc 53.0 U/L 04/17/2025 10 - 55 HHCC T Creat SerPl-mCnc 1.1 mg/dL 04/17/2025 0.5 - 1.3 HH CCT Globulin Ser Calc-mCnc 3.1 g/dL 04/17/2025 1.5 - 3.9 HHCCT ALP SerPl-cCnc 71.0 U/L 04/17/2025 45 - 128 HHCC T ALT SerPl-cCnc 12.0 U/L 04/17/2025 10 - 55 HH[facility] T Albumin SerPl-mCnc 3.7 g/dL 04/17/2025 3.5 - 5 H[facility]CT Neutrophils/leuk NFr Bld Auto 66.1 % 04/17/2025 HHCCT Lymphocytes/leuk NFr Bld Auto 22.8 % 04/17/2025 H[facility]CT Basophils/leuk NFr Bld Auto 0.2 % 04/17/2025 HHCCT Neutrophils num Bld Auto 6.02 Thou/uL 04/17/2025 2 - 7.5 HHCCT Platelet num Bld Auto 223.0 Thou/uL 04/17/2025 150 - 450 HHCCT PMV Bld Auto 9.5 fL 04/17/2025 7.5 - 12.5 HHCCT Basophils num Bld Auto 0.02 Thou/uL 04/17/2025 0 - 0.2 HHCCT Hct VFr Bld Auto 36.7 % Below low normal 04/17/2025 39 - 54 HHCCT MCH RBC Qn Auto 27.0 pg 04/17/2025 26 - [address] Eosinophil/leuk NFr Bld Auto 0.5 % 04/17/2025 HHCCT WBC num Bld Auto 9.1 Thou/uL 04/17/2025 4 - 11 HHCCT Monocytes num Bld Auto 0.92 Thou/uL 04/17/2025 0.2 - 1.5 HHCCT Lymphocytes num Bld Auto 2.08 Thou/uL 04/17/2025 1.5 - 4.5 HHCCT Monocytes/leuk NFr Bld Auto 10.1 % 04/17/2025 HHCCT RDW RBC Auto-Rto 13.2 % 04/17/2025 11.5 - 14.5 HHCCT Hgb Bld-mCnc 12.6 g/dL Below low normal 04/17/2025 13 - 17.7 HHCCT RBC num Bld Auto 4.67 Mil/uL 04/17/2025 4.5 - 6.2 HHCCT MCHC RBC Auto-mCnc 34.3 g/dL 04/17/2025 30 - 36 HHCCT Imm Granulocytes/leuk NFr Bld Auto 0.3 % 04/17/2025 HHCCT MCV RBC Auto 79.0 fL Below low normal 04/17/2025 80 - 100 HHCCT Eosinophil num Bld Auto 0.05 Thou/uL 04/17/2025 0 - 0.7 HHCCT Imm Granulocytes num Bld Auto 0.03 Thou/uL 04/17/2025 0 - 0.1 HHCCT TSH SerPl DL<=0.005 mIU/L-aCnc 0.76 mIU/L 04/17/2025 0.27 - 4.2 HHCCT GFR/BSA.pred SerPlBld TDB-WXC-VbSFed 85.0 04/16/2025 59 - HHCCT Creat SerPl-mCnc 1.2 mg/dL 04/16/2025 0.5 - 1.3 HH CCT Sodium SerPl-sCnc 139.0 mmol/L 04/16/2025 136 - 14 5 HHCCT Potassium SerPl-sCnc 3.4 mmol/L 04/16/2025 3.4 - 5 .3 HHCCT BUN/Creat SerPl 7.0 Ratio Below low normal 04/16/2025 10 - 2 5 HHCCT Chloride SerPl-sCnc 103.0 mmol/L 04/16/2025 98 - 1 07 HHCCT CO2 SerPl-sCnc 23.0 mmol/L 04/16/2025 22 - 33 HH CCT Anion Gap Bld-sCnc 13.0 04/16/2025 7 - 17 HHCCT BUN SerPl-mCnc 8.0 mg/dL 04/16/2025 8 - 21 HHCC T Calcium SerPl-mCnc 8.8 mg/dL 04/16/2025 8.7 - 10.5 HHCCT Glucose SerPl-mCnc 86.0 mg/dL 04/16/2025 65 - 99 HHCCT Magnesium SerPl-mCnc 2.4 mg/dL 04/16/2025 1.6 - 2. 7 HHCCT CK SerPl-cCnc 676.0 U/L Critically high 04/16/2025 24 - 204 HHCCT Lactate SerPl-sCnc 1.6 mmol/L 04/16/2025 0.5 - 1.9 HHCCT POC Glucose 161.0 mg/dL Above high normal 04/16/2025 65 - 99 HHCCT Encounters Encounter Type Encounter Reason Primary Diagnosis Location Date Inpatient Other stimulant use, unspecified with intoxication, unspecified Other stimulant use, unspecified with intoxication, unspecified [facility] 04/16/2025 Care Team Organization Name Specialty Phone Email Start Date End Sanjay hurtado [facility] 04/17/2025 05/16/2025 [facility] 04/17/2025
--- OUTSIDE RECORDS SUMMARY | 2025-08-04 21:13 | XMS_ITS | Encounter Summary ---
Author Organization [employer] Address [address] [place] [address] Care Team Providers Care Metal Sander And Finisher Name Role Phone Dana Pires NP Primary Care Provider [phone] Vinicio Dumont RN Unavailable Encounter Details Date Type Department Care Team ([facility] st Contact Info) Description 09/25/2024 Orders Only [facility] MED[facility] [address] [place] [address] Dana Pires NP [address] [place] [address] Social History Tobacco Use Types Packs/Day Years [...] documented as of this encounter Care Teams Metal Sander And Finisher Relationship Specialty Start Date End Date Dana Pires NP [address] [place] [id number] PCP - General Family Medicine 10/03/23 Vinicio Dumont RN [address] [place] [address] Patch SanderToddler Nanny 10/16/24 02/01/25 documented as of this encounter
--- OUTSIDE RECORDS SUMMARY | 2025-08-04 21:13 | XMS_ITS | Encounter Summary ---
Author Organization [facility] Address [address] [place] [address] [address] [place] [address] Care Team Providers Care Ambulance Attendant Name Role Phone Dana Pires NP Primary Care Provider [phone] Vinicio Dumont RN Unavailable [phone] Reason for Visit * Reason Comments Med Refill Encounter Details Date Type Department Care Team ([facility] st Contact Info) Description 06/12/2024 Refill [facility] [address] [place] [address] Dana Pires NP [address] [place] [address] Bipolar affective disorder, remission status unspecified ([facility]) Social History Tobacco Use Types Packs/Day [...] Diagnosis Bipolar affective disorder, remission status unspecified ([facility]) documented in this encounter Additional Health Concerns Assessment Noted Time PHQ-9 Depression Total Score: 0 10/03/20 9:10 AM EST documented as of this encounter Care Teams Ambulance Attendant Relationship Specialty Start Date End Date Dana Pires NP [address] [place] [address] PCP - General Family Medicine 10/03/23 Vinicio Dumont RN [address] [place] [address] Torpedo WorkerNetwork Support Technician 10/16/24 02/01/25 documented as of this encounter
--- OUTSIDE RECORDS SUMMARY | 2025-08-04 21:13 | XMS_ITS | Encounter Summary ---
Author Organization [employer] Address [address] [place] [address] 7 [place] [address] Care Team Providers Care Plunger Scoop Operator Name Role Phone Dana Pires CADD TECHNICIAN Primary Care Provider [phone] Vinicio Dumont RN Unavailable [phone] Reason for Visit * Reason Onset Date Comments New Patient 08/28/2023 Encounter Details Date Type Department Care Team ([facility] st Contact Info) Description 08/28/2023 Telephone [facility] [address] [place] [address] David Rodriguez MD [address] [place] [address] New Patient Social History Tobacco Use Types [...] PAR Zohaib Marroquin called pt to Offer CADD TECHNICIAN appt. Pt demographics and insurance information were verified. Pt states following medical conditions: YES Pt reports taking medications: YES ( will bring onday of appt ) Pt given CADD TECHNICIAN appt with CADD TECHNICIAN Dana Pires on 10/03/2023 @ 9:00 am. Pt will be sent appt reminder card and medical release form and agrees to complete and to return to medical records priorto CADD TECHNICIAN appt. documented in this encounter Plan of Treatment Not on file documented as of this encounter Visit Diagnoses Not on filedocumented in this encounter Care Teams Plunger Scoop Operator Relationship Specialty Start Date End Date Dana Pires NP [address] [place] [id number] PCP - General Family Medicine 10/03/23 Vinicio Dumont RN [address] [place] [phone] Job Press FeederRecruitment Director 10/16/24 02/01/25 documented as of this encounter
--- OUTSIDE RECORDS SUMMARY | 2025-08-04 21:13 | XMS_ITS | Encounter Summary ---
Author Organization [employer] Address [address] [place] [address] 7 [place] [address] Care Team Providers Care Personnel Security Assistant Name Role Phone Dana Pires NP Primary Care Provider [phone] Vinicio Dumont RN Unavailable [phone] Reason for Visit * Reason Onset Date Comments Hospital Follow-up 10/07/2024 Encounter Details Date Type Department Care Team ([facility] st Contact Info) Description 10/07/2024 Telephone [facility] MED[facility]INE [address] [place] [address] Dana Pires NP [address] [place] [address] Hospital Follow-up Social History Tobacco Use Types [...] from pt requesting a HDF appt. Hospital: [facility] Date of admission: 10/03 Discharge date: 10/08 Diagnosed: Depression, Overdose on Clonadine, and Bipolar Disorder. Contact pt at [phone] *Send message to [facility] Clinical Care Coordinators documented in this encounter Plan of Treatment Not on file documented as of this encounter Visit Diagnoses Not on filedocumented in this encounter Additional Health Concerns Assessment Noted Time PHQ-9 Depression Total Score: 17 024 10:49 AM EST documented as of this encounter Care Teams Personnel Security Assistant Relationship Specialty Start Date End Date Dana Pires NP [address] [place] [address] PCP - General Family Medicine 10/03/23 Vinicio Dumont RN [address] [place] [address] Content EngineerInstrument Assembly Supervisor 10/16/24 02/01/25 documented as of this encounter
--- OUTSIDE RECORDS SUMMARY | 2025-08-04 21:14 | XMS_ITS | Clinical Summary ---
Author Organization [facility] Address [address] [place] [address] Care Team Providers Care Director Of Catering Sales Name Role Phone Unavailable Primary Care Provider [...] Done Comments Hepatitis C Virus Screening 1997 Hepatitis B Vaccines (3 of 3 - 19+ 3-dose series) 12/19/2024 10/24/2024, 08/14/2018 Influenza Vaccine 06/12/2025 08/12/2024, , 12/02/2020, Additional history exists COVID-19 Vaccine (1 - 2024-25 season) 2025 DTaP/Tdap/Td Vaccines (3 - Td or Tdap) 12/08/2031 12/08/2021, 11/14/2016 HPV Vaccines Completed 06/11/2015, 01/12, 12/10/2014 HIV Screening Completed 06/21/2022 Pneumococcal Vaccine: Pediatric (0-5 Years) and At-Risk Patients (6 to 49 Years) Aged Out No longer eligible based on patient's age to complete this topic Insurance [facility] Advance Directives * Full Code (Latest Code Status on File) Date Activated Date Inactivated Comments 04/17/2025 8:44 AM
--- NOTE | 2025-08-04 21:16 | MHC.CARE ---
Patient will be adult IPLOC. Section 12a in chart for safety.
--- NOTE | 2025-08-04 22:01 | PC.NURSE ---
this RN spoke w/ the pt's mother, Criss, on the phone at this time Mother wanted to inform this RN of the story behind sending pt to [facility]. Criss states that at home the pt was having increased episodes of agitation, where he would slam doors, slam his fists against the wall and yelling. Mother was concerned for the pt's safety and called 911 for the pt to be seen by Crisis in order to keep pt safe, as she was concerned of the pt hurting himself. Criss was also able to confirm the pt has a prescription for Zoloft 100mg daily, could not confirm other home medications at this time
--- NOTE | 2025-08-04 22:25 | PC.NURSE ---
med rec completed at this time, pt able to verbalized home medications
--- NOTE | 2025-08-04 22:59 | PC.NURSE ---
at this time this RN attempted to medicate pt per JAN, pt noted to be sleeping in his bed, respiratory effort normal equal chest rise and fall present, no apparent distress noted, medication not given at this time
--- NOTE | 2025-08-05 06:59 | PC.NURSE ---
Assumed care, report received. Pt is currently sleeping, safety maintained.
[2025-08-05 08:09] VITALS: BP 119/78; PULSE 100; RESP 18; TEMP 37; O2SAT 98
--- NOTE | 2025-08-05 09:26 | ECG_ITS ---
Test Reason : CHECK PROLONGED QT Blood Pressure : */* mmHG Vent. Rate : 96 BPM Atrial Rate : 96 BPM P-R Int : 140 ms QRS Dur : 94 ms QT Int : 328 ms P-R-T Axes : 87 68 58 degrees QTcB Int : 414 ms Sinus rhythm with marked sinus arrhythmia Otherwise normal ECG When compared with ECG of 21-Jul-2025 18:27, No significant change was found Referred By: Rivas Sofia Electronically Signed By: Ruben Betts
[2025-08-05 14:06] VITALS: BP 119/78; PULSE 100; RESP 18; TEMP 37
[2025-08-05 14:38] VITALS: BP 137/81; PULSE 106; RESP 18; TEMP 36.2; O2SAT 98
[2025-08-05 14:47] VITALS: BMI 29.3
--- NOTE | 2025-08-05 15:04 | HO.PSYADMNOT ---
[facility] Date of Service: 08/05/25 Chief Complaint: crisis Sources of Information: patient interviewed, chart reviewed and crisis/core team assessment reviewed HPI Subjective Notes: [place]graw Warning and Conditional Voluntary Narrative: Patient is a 29-year-old male with history of bipolar disorder who presented to ER via ambulance due to bizarre behavior at home and his mother calling 911 for an assessment. Per crisis report, patient presented to ambulance after his mother contacted 911 for patient reportedly acting bizarre. Patient was reportedly kicking a door in the home and has not been making sense. Intermediate escalation and has been overall acting out of character. Patient's eye contact is intense at times and often fixating on 1 area in the room. Presents as paranoid. Patient reported, I do not have a mood. Denies SI/HI/VH/AH. Patient reports he has not eaten in days and has not slept in months. History of multiple inpatient psychiatric hospitalizations. Patient reports having an outpatient therapist via telehealth however can not recall name. U tox positive for marijuana. Collateral was obtained from patient's mother, Criss, who reports patient has not been himself for about a month. She reported patient has been randomly yelling and discussing statements that are actually happening. During admission assessment, patient presents alert and oriented x3. Guarded. Paranoid. Looking around the room as if he is seeing or listening to someone speak; however when asked about hallucinations patient denies. Patient reports that he came to the hospital because he has bipolar/schizophrenia. He reports he feels like he sleeps 7 hours a day on most nights and states that his appetite is fine. Patient denies SI/HI. He reports he would like a referral for a prescriber and therapist in the area. Difficult to engage. Past Psychiatric History: History of multiple inpatient psychiatric hospitalizations. Therapist via telehealth. Patient reports he does not have outpatient prescriber. Past medication trials: risperidone, depakote, clonidine Medical Evaluation Reviewed: Yes PMFSH Medical History Asthma Bipolar 1 disorder Surgical History No significant past surgical history Family History: unknown Social History: No children. He completed college level classes. Substance History: Patient reports smoking marijuana daily. Denies any other substance use. U tox positive for marijuana. Trauma History: yes Diagnostics Vital Signs (24Hr): Vital Signs - 24 hr 08/04/25 18:58 08/04/25 19:09 08/05/25 08:09 Temperature 97.8 F 98.6 F Pulse Rate 97 100 Respiratory Rate 18 17 18 Blood Pressure 144/82 H 119/78 Pulse Oximetry 99 98 Oxygen Delivery Method Room Air Room Air 08/05/25 14:06 08/05/25 14:38 Temperature 98.6 F 97.1 F Pulse Rate 100 106 H Respiratory Rate 18 18 Blood Pressure 119/78 137/81 Pulse Oximetry 98 Oxygen Delivery Method Room Air BMI result Body Mass Index 29.3 Labs 08/04/25 19:38 08/04/25 19:35 Labs: Laboratory Results - last 48 hr 08/04/25 08/04/25 19:35 19:38 WBC 7.7 RBC 5.26 Hgb 14.0 Hct 40.2 L MCV 76.4 L MCH 26.6 L MCHC 34.8 RDW 14.6 Plt Count 246 MPV 9.5 Immature Gran % (Auto) 0.5 H Neut % (Auto) 50.3 Lymph % (Auto) 43.7 H [place] % (Auto) 4.8 Eos % (Auto) 0.6 Baso % (Auto) 0.1 Lymph # (Auto) 3.4 [place] # (Auto) 0.4 Eos # (Auto) 0.1 Baso # (Auto) 0.0 Abs Immat Gran (auto) 0.04 H Absolute Neuts (auto) 3.9 Absolute Nucleated RBC 0.000 Nucleated RBC % (auto) 0.0 Sodium 143 Potassium 4.3 D Chloride 108 Carbon Dioxide 28 Anion Gap 11 L BUN 7 L Creatinine 0.71 Estim Creat Clear Calc 156.2 Estimated GFR > 60 Fasting Glucose 93 Calcium 9.0 Total Bilirubin 0.9 AST 16 ALT 7 Alkaline Phosphatase 85 Total Protein 7.3 Albumin 4.2 Urine Color Yellow Urine Appearance Clear Urine pH 5.5 Ur Specific [place] 1.015 Urine Protein Negative Urine Glucose (UA) Negative Urine Ketones Negative Urine Blood Negative Urine Nitrite Negative Ur Leukocyte Esterase Trace H Urine RBC 0-2 Urine WBC 0-5 Ur Squamous Epith Cells 0-2 Urine Bacteria None Seen Hyaline Casts 0-2 Salicylates < 5.0 L Urine Opiates Screen Not Detected Ur Buprenorphine Scrn Not Detected Ur Oxycodone Screen Not Detected Urine Methadone Screen Not Detected Urine Fentanyl Screen Not Detected Acetaminophen < 3 Ur Barbiturates Screen Not Detected Ur Phencyclidine Scrn Not Detected Ur Amphetamines Screen Not Detected U Benzodiazepines Scrn Not Detected Urine Cocaine Screen Not Detected U Marijuana (THC) Screen POSITIVE H Ethyl Alcohol < 10 Meds/Allergies Allergies Allergies Allergy/AdvReac Type Severity Reaction Status Date / Time No Known Allergies Allergy Verified 08/04/25 19:01 Assessment & Plan Assessment & Plan (1) Bipolar disorder: Status: Acute Code(s): F31.9 - Bipolar disorder, unspecified (2) PTSD (post-traumatic stress disorder): Status: Acute Code(s): F43.10 - Post-traumatic stress disorder, unspecified Plan Patient is a 29-year-old male with history of bipolar disorder who presented to ER via ambulance due to bizarre behavior at home and his mother calling 911 for an assessment. Plan: CV 15 minute safety checks Continue home medications Obtain collateral Encourage groups Discharge planning Patient educated on: diagnosis and medication risk/benefits Reason for continued inpatient stay Substantial Risk for: med/psych decompensation Statement Statement: I have reviewed the history and physical and performed a pertinent examination on my patient. No changes have occurred unless specified. If the History and Physical was not performed prior to admission, the Hospitalist's service will be consulted for completing the admission physical. Time Spent With Patient Time: Total time managing care of this patient today _60___ minutes.
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
[2025-08-05 20:00] VITALS: BP 124/79; PULSE 80; RESP 16; TEMP 37.1; O2SAT 97
[2025-08-06 07:00] VITALS: BMI 30.1
[2025-08-06 08:00] VITALS: BP 116/66; PULSE 88; RESP 16; TEMP 36.7; O2SAT 99
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
[2025-08-06 08:28] LABS: Alanine Aminotransferase 13 U/L (0-40); Albumin Level 4.0 g/dL (3.5-5.0); Alkaline Phosphatase 81 U/L (39-117); Anion Gap 8 (12-20); Aspartate Amino Transferase 21 U/L (5-37); Blood Urea Nitrogen 13 mg/dL (9-16); Calcium 8.9 mg/dL (8.4-10.2); Carbon Dioxide 30 mmol/L (22-29); Chloride 111 mmol/L (96-108); Cholesterol 84 mg/dL (<200); Creatinine Clr Calc Pharmacy 152.0; Estimated Glomerular Filt Rate > 60; HDL Cholesterol 38 mg/dL (>40); Potassium 4.2 mmol/L (3.3-5.1); Sodium 145 mmol/L (135-145); Total Protein 6.6 g/dL (6.5-8.0); Triglycerides 46 mg/dL (<150)
--- NOTE | 2025-08-06 08:39 | P.PNPSI_ITS ---
Subjective Subjective Date of Service: 08/06/25 Reason For Visit: crisis Subjective Notes: Conditional Voluntary Interim History: Active on unit. social with peers and staff. Patient reports feeling fine ; he reports he came to the hospital because my mind and body were not settling with certain things . Pt is requesting to have Trazodone decreased to 100mg PO bedtime; dose decreased. He is also requesting to be restart on Adderall XR; prescription monitoring program shows pt was prescribed Adderall XR 20mg since December 2024. Start: Adderall XR 20mg PO daily. Per nursing, slept 7 hours last night. deneis SI/HI/VH/AH. Medication Compliance: Yes Side effects from medications: No Attending Groups: Intermittent Mental Status Exam Mental Status Exam Narrative: Pt is alert and oriented; behavior is cooperative and calm; dressed in casual attire; mood is described as fine ; eye contact appropriate; Speech is normal rate, volume and not pressured; thought process is organized; Thought content is on tx; denies SI/HI/VH/AH. Diagnostics Vital Signs (24Hr): Vital Signs - 24 hr 08/05/25 14:06 08/05/25 14:38 08/05/25 20:00 Temperature 98.6 F 97.1 F 98.8 F Pulse Rate 100 106 H 80 Respiratory Rate 18 18 16 Blood Pressure 119/78 137/81 124/79 Pulse Oximetry 98 97 Oxygen Delivery Method Room Air Room Air 08/06/25 08:00 Temperature 98.1 F Pulse Rate 88 Respiratory Rate 16 Blood Pressure 116/66 Pulse Oximetry 99 Oxygen Delivery Method Room Air BMI result Body Mass Index 29.3 Labs 08/04/25 19:38 08/06/25 07:39 Labs: Laboratory Results - last 48 hr 08/04/25 08/04/25 08/06/25 19:35 19:38 07:39 WBC 7.7 RBC 5.26 Hgb 14.0 Hct 40.2 L MCV 76.4 L MCH 26.6 L MCHC 34.8 RDW 14.6 Plt Count 246 MPV 9.5 Immature Gran % (Auto) 0.5 H Neut % (Auto) 50.3 Lymph % (Auto) 43.7 H Tillman % (Auto) 4.8 Eos % (Auto) 0.6 Baso % (Auto) 0.1 Lymph # (Auto) 3.4 Tillman # (Auto) 0.4 Eos # (Auto) 0.1 Baso # (Auto) 0.0 Abs Immat Gran (auto) 0.04 H Absolute Neuts (auto) 3.9 Absolute Nucleated RBC 0.000 Nucleated RBC % (auto) 0.0 Sodium 143 145 Potassium 4.3 D 4.2 Chloride 108 111 H Carbon Dioxide 28 30 H Anion Gap 11 L 8 L BUN 7 L 13 Creatinine 0.71 0.81 Estim Creat Clear Calc 156.2 152.0 Estimated GFR > 60 > 60 Random Glucose 74 Fasting Glucose 93 Calcium 9.0 8.9 Total Bilirubin 0.9 0.7 AST 16 21 ALT 7 13 Alkaline Phosphatase 85 81 Total Protein 7.3 6.6 Albumin 4.2 4.0 Triglycerides 46 Cholesterol 84 LDL Cholesterol, Calc 37 HDL Cholesterol 38 L Urine Color Yellow Urine Appearance Clear Urine pH 5.5 Ur Specific [place] 1.015 Urine Protein Negative Urine Glucose (UA) Negative Urine Ketones Negative Urine Blood Negative Urine Nitrite Negative Ur Leukocyte Esterase Trace H Urine RBC 0-2 Urine WBC 0-5 Ur Squamous Epith Cells 0-2 Urine Bacteria None Seen Hyaline Casts 0-2 Salicylates < 5.0 L Urine Opiates Screen Not Detected Ur Buprenorphine Scrn Not Detected Ur Oxycodone Screen Not Detected Urine Methadone Screen Not Detected Urine Fentanyl Screen Not Detected Acetaminophen < 3 Ur Barbiturates Screen Not Detected Ur Phencyclidine Scrn Not Detected Ur Amphetamines Screen Not Detected U Benzodiazepines Scrn Not Detected Urine Cocaine Screen Not Detected U Marijuana (THC) Screen POSITIVE H Ethyl Alcohol < 10 Medications Medications Current Medications Acetaminophen (Acetaminophen 325 Mg Tablet) 650 mg PO Q6H PRN PRN Reason: Headache/Pain, Scale 1-10 Last Admin: 08/06/25 08:32 Dose: 650 mg Al Hydroxide/Mg Hydroxide (Magnesium Hydrox/Alum Hydrox 30 Ml Oral.Susp) 30 ml PO Q6H PRN PRN Reason: Heartburn/Nausea Albuterol Sulfate (Albuterol Sulfate 90 Mcg 8 Gm Inhaler) 2 puff INHALE RQ4H PRN PRN Reason: sob Hydroxyzine HCl (Hydroxyzine Hcl 25 Mg Tablet) 25 mg PO Q6H PRN PRN Reason: Anxiety Last Admin: 08/05/25 14:01 Dose: 25 mg Lorazepam (Lorazepam 1 Mg Tablet) 1 mg PO TID PRN PRN Reason: severe anxiety Last Admin: 08/05/25 16:15 Dose: 1 mg Magnesium Hydroxide (Milk Of Magnesia 30 Ml Oral.Susp) 30 ml PO DAILY PRN PRN Reason: Constipation Nicotine Polacrilex (Nicotine Polacrilex 2 Mg Gum) 4 mg BUCCAL Q2H PRN PRN Reason: Nicotine Cravings Olanzapine (Olanzapine 10 Mg Tablet) 10 mg PO BEDTIME [facility] Last Admin: 08/05/25 19:59 Dose: 10 mg Olanzapine (Olanzapine 5 Mg Tablet) 5 mg PO Q4H PRN PRN Reason: agitation Last Admin: 08/05/25 16:15 Dose: 5 mg Oxcarbazepine (Oxcarbazepine 300 Mg Tablet) 600 mg PO BID [facility] Last Admin: 08/06/25 08:28 Dose: 600 mg Sertraline HCl (Sertraline Hcl 100 Mg Tablet) 100 mg PO DAILY [facility] Last Admin: 08/06/25 08:28 Dose: 100 mg Trazodone HCl (Trazodone Hcl 50 Mg Tablet) 150 mg PO BEDTIME [facility] Last Admin: 08/05/25 19:59 Dose: 150 mg Allergies Allergies Allergy/AdvReac Type Severity Reaction Status Date / Time No Known Allergies Allergy Verified 08/04/25 19:01 Assessment & Plan Assessment & Plan (1) Bipolar disorder: Status: Acute Code(s): F31.9 - Bipolar disorder, unspecified (2) PTSD (post-traumatic stress disorder): Status: Acute Code(s): F43.10 - Post-traumatic stress disorder, unspecified Plan Patient is a 29-year-old male with history of bipolar disorder who presented to ER via ambulance due to bizarre behavior at home and his mother calling 911 for an assessment. Plan: CV 15 minute safety checks Continue home medications Obtain collateral Encourage groups Discharge planning 08/06: Active on unit. social with peers and staff. Patient reports feeling fine ; he reports he came to the hospital because my mind and body were not settling with certain things . Pt is requesting to have Trazodone decreased to 100mg PO bedtime; dose decreased. He is also requesting to be restart on Adderall XR; prescription monitoring program shows pt was prescribed Adderall XR 20mg since December 2024. Start: Adderall XR 20mg PO daily. Per nursing, slept 7 hours last night. deneis SI/HI/VH/AH. Patient educated on: diagnosis and medication risk/benefits Reason for continued inpatient stay Substantial Risk for: med/psych decompensation Time Spent With Patient Time: Total time managing care of this patient today _20___ minutes.
[2025-08-06 10:34] LABS: Hemoglobin A1C 107.9108 umol/L; Total Hemoglobin (HGBA1C) 3452.9102 umol/L
--- NOTE | 2025-08-06 16:29 | PC.NURSE ---
Pt declined Flu vaccine
[2025-08-06 20:00] VITALS: BP 152/94; PULSE 96; RESP 16; TEMP 36.6; O2SAT 95
[2025-08-07 08:00] VITALS: RESP 16
[2025-08-07] MEDS: Dextroamphetamine/Amphetamine XR 10 MG CAP.ER.24H 20 MG PO (09:11)
--- NOTE | 2025-08-07 15:39 | HO.PSYCHPN ---
Subjective Subjective Date of Service: 08/07/25 Reason For Visit: crisis Subjective Notes: Conditional Voluntary Interim History: Active on unit. social with peers and staff. Patient reports feeling fine ; he reports he came to the hospital because my mind and body were not settling with certain things . Pt is requesting to have Trazodone decreased to 100mg PO bedtime; dose decreased. He is also requesting to be restart on Adderall XR; prescription monitoring program shows pt was prescribed Adderall XR 20mg since December 2024. Start: Adderall XR 20mg PO daily. Per nursing, slept 7 hours last night. balbir SI/HI/VH/AH. Medication Compliance: Yes Side effects from medications: No Attending Groups: Intermittent Diagnostics Vital Signs (24Hr): Vital Signs - 24 hr 08/06/25 20:00 08/07/25 08:00 Temperature 97.8 F Pulse Rate 96 Respiratory Rate 16 16 Blood Pressure 152/94 H Pulse Oximetry 95 Oxygen Delivery Method Room Air BMI result Body Mass Index 30.1 Labs 08/04/25 19:38 08/06/25 07:39 Labs: Laboratory Results - last 48 hr 08/06/25 07:39 Sodium 145 Potassium 4.2 Chloride 111 H Carbon Dioxide 30 H Anion Gap 8 L BUN 13 Creatinine 0.81 Estim Creat Clear Calc 152.0 Estimated GFR > 60 Random Glucose 74 Estimat Average Glucose 97 Hemoglobin A1c % 5.0 Calcium 8.9 Total Bilirubin 0.7 AST 21 ALT 13 Alkaline Phosphatase 81 Total Protein 6.6 Albumin 4.0 Triglycerides 46 Cholesterol 84 LDL Cholesterol, Calc 37 HDL Cholesterol 38 L Medications Medications Current Medications Acetaminophen (Acetaminophen 325 Mg Tablet) 650 mg PO Q6H PRN PRN Reason: Headache/Pain, Scale 1-10 Last Admin: 08/06/25 08:32 Dose: 650 mg Al Hydroxide/Mg Hydroxide (Magnesium Hydrox/Alum Hydrox 30 Ml Oral.Susp) 30 ml PO Q6H PRN PRN Reason: Heartburn/Nausea Albuterol Sulfate (Albuterol Sulfate 90 Mcg 8 Gm Inhaler) 2 puff INHALE RQ4H PRN PRN Reason: sob Amphetamine/Dextroamphetamine (Dextroamphetamine/Amphetamine Xr 10 Mg Cap.Er.24h) 20 mg PO DAILY [facility] Last Admin: 08/07/25 09:11 Dose: 20 mg Hydroxyzine HCl (Hydroxyzine Hcl 25 Mg Tablet) 25 mg PO Q6H PRN PRN Reason: Anxiety Last Admin: 08/06/25 12:55 Dose: 25 mg Lorazepam (Lorazepam 1 Mg Tablet) 1 mg PO TID PRN PRN Reason: severe anxiety Last Admin: 08/07/25 14:08 Dose: 1 mg Magnesium Hydroxide (Milk Of Magnesia 30 Ml Oral.Susp) 30 ml PO DAILY PRN PRN Reason: Constipation Nicotine Polacrilex (Nicotine Polacrilex 2 Mg Gum) 4 mg BUCCAL Q2H PRN PRN Reason: Nicotine Cravings Olanzapine (Olanzapine 10 Mg Tablet) 10 mg PO BEDTIME [facility] Last Admin: 08/06/25 20:59 Dose: 10 mg Olanzapine (Olanzapine 5 Mg Tablet) 5 mg PO Q4H PRN PRN Reason: agitation Last Admin: 08/07/25 14:08 Dose: 5 mg Oxcarbazepine (Oxcarbazepine 300 Mg Tablet) 600 mg PO BID [facility] Last Admin: 08/07/25 09:11 Dose: 600 mg Sertraline HCl (Sertraline Hcl 100 Mg Tablet) 100 mg PO DAILY [facility] Last Admin: 08/07/25 09:11 Dose: 100 mg Trazodone HCl (Trazodone Hcl 100 Mg Tablet) 100 mg PO BEDTIME [facility] Last Admin: 08/06/25 20:59 Dose: 100 mg Allergies Allergies Allergy/AdvReac Type Severity Reaction Status Date / Time No Known Allergies Allergy Verified 08/04/25 19:01 Assessment & Plan Assessment & Plan (1) Bipolar disorder: Status: Acute Code(s): F31.9 - Bipolar disorder, unspecified (2) PTSD (post-traumatic stress disorder): Status: Acute Code(s): F43.10 - Post-traumatic stress disorder, unspecified Plan Patient is a 29-year-old male with history of bipolar disorder who presented to ER via ambulance due to bizarre behavior at home and his mother calling 911 for an assessment. Plan: CV 15 minute safety checks Continue home medications Obtain collateral Encourage groups Discharge planning 08/06: Active on unit. social with peers and staff. Patient reports feeling fine ; he reports he came to the hospital because my mind and body were not settling with certain things . Pt is requesting to have Trazodone decreased to 100mg PO bedtime; dose decreased. He is also requesting to be restart on Adderall XR; prescription monitoring program shows pt was prescribed Adderall XR 20mg since December 2024. Start: Adderall XR 20mg PO daily. Per nursing, slept 7 hours last night. balbir HICKMAN/HI/SANTIAGO/RUBEN. Time Spent With Patient Time: Total time managing care of this patient today ____ minutes.
--- NOTE | 2025-08-07 15:40 | HO.PSYCHPN ---
Subjective Subjective Date of Service: 08/07/25 Reason For Visit: crisis Subjective Notes: Conditional Voluntary Interim History: Pt reports that he used to be afraid of psychiatrists but felt comfortable meeting with this sign writer hand. 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 He reports that he's feeling better/sleeping better since re-starting Adderall and states that he had been using meth when he had no access to Adderall. He asked how tall he is according to his chart and was relieved that his chart says 6'2, as he reports that multiple medical providers told him he's only 5'7. He asked about STD testing. Also said that he has dysfunction , pointing to his groin, asked what to do about it, as I was walking out of the meeting area. He denies SI/violent ideation Denies AH/VH Denies med SE Medication Compliance: Yes Side effects from medications: No Attending Groups: Yes Mental Status Exam Mental Status Exam Narrative: Appearance: Wearing button down shirt, partially tucked into pants that are unzipped. Malodorous. Intense eye contact at times Attitude:Cooperative Speech: Fluent, mildly pressured but easily interruptible Motor activity: Calm and without any tics, tremors or dyskinesias. Steady gait Mood: better Affect: appropriate. not labile. Thought process: generally disorganized Thought content: Denies SI/violent ideation. Grandiose, some sexual content Perception: Denies AH/VH. Appears internally preoccupied at times Insight: impaired Judgment: impaired Diagnostics Vital Signs (24Hr): Vital Signs - 24 hr 08/06/25 20:00 08/07/25 08:00 Temperature 97.8 F Pulse Rate 96 Respiratory Rate 16 16 Blood Pressure 152/94 H Pulse Oximetry 95 Oxygen Delivery Method Room Air BMI result Body Mass Index 30.1 Labs 08/04/25 19:38 08/06/25 07:39 Labs: Laboratory Results - last 48 hr 08/06/25 07:39 Sodium 145 Potassium 4.2 Chloride 111 H Carbon Dioxide 30 H Anion Gap 8 L BUN 13 Creatinine 0.81 Estim Creat Clear Calc 152.0 Estimated GFR > 60 Random Glucose 74 Estimat Average Glucose 97 Hemoglobin A1c % 5.0 Calcium 8.9 Total Bilirubin 0.7 AST 21 ALT 13 Alkaline Phosphatase 81 Total Protein 6.6 Albumin 4.0 Triglycerides 46 Cholesterol 84 LDL Cholesterol, Calc 37 HDL Cholesterol 38 L Medications Medications Current Medications Acetaminophen (Acetaminophen 325 Mg Tablet) 650 mg PO Q6H PRN PRN Reason: Headache/Pain, Scale 1-10 Last Admin: 08/06/25 08:32 Dose: 650 mg Al Hydroxide/Mg Hydroxide (Magnesium Hydrox/Alum Hydrox 30 Ml Oral.Susp) 30 ml PO Q6H PRN PRN Reason: Heartburn/Nausea Albuterol Sulfate (Albuterol Sulfate 90 Mcg 8 Gm Inhaler) 2 puff INHALE RQ4H PRN PRN Reason: sob Amphetamine/Dextroamphetamine (Dextroamphetamine/Amphetamine Xr 10 Mg Cap.Er.24h) 20 mg PO DAILY [facility] Last Admin: 08/07/25 09:11 Dose: 20 mg Hydroxyzine HCl (Hydroxyzine Hcl 25 Mg Tablet) 25 mg PO Q6H PRN PRN Reason: Anxiety Last Admin: 08/06/25 12:55 Dose: 25 mg Lorazepam (Lorazepam 1 Mg Tablet) 1 mg PO TID PRN PRN Reason: severe anxiety Last Admin: 08/07/25 14:08 Dose: 1 mg Magnesium Hydroxide (Milk Of Magnesia 30 Ml Oral.Susp) 30 ml PO DAILY PRN PRN Reason: Constipation Nicotine Polacrilex (Nicotine Polacrilex 2 Mg Gum) 4 mg BUCCAL Q2H PRN PRN Reason: Nicotine Cravings Olanzapine (Olanzapine 10 Mg Tablet) 10 mg PO BEDTIME [facility] Last Admin: 08/06/25 20:59 Dose: 10 mg Olanzapine (Olanzapine 5 Mg Tablet) 5 mg PO Q4H PRN PRN Reason: agitation Last Admin: 08/07/25 14:08 Dose: 5 mg Oxcarbazepine (Oxcarbazepine 300 Mg Tablet) 600 mg PO BID [facility] Last Admin: 08/07/25 09:11 Dose: 600 mg Sertraline HCl (Sertraline Hcl 100 Mg Tablet) 100 mg PO DAILY [facility] Last Admin: 08/07/25 09:11 Dose: 100 mg Trazodone HCl (Trazodone Hcl 100 Mg Tablet) 100 mg PO BEDTIME [facility] Last Admin: 08/06/25 20:59 Dose: 100 mg Allergies Allergies Allergy/AdvReac Type Severity Reaction Status Date / Time No Known Allergies Allergy Verified 08/04/25 19:01 Assessment & Plan Assessment & Plan (1) Bipolar disorder: Status: Acute Code(s): F31.9 - Bipolar disorder, unspecified (2) PTSD (post-traumatic stress disorder): Status: Acute Code(s): F43.10 - Post-traumatic stress disorder, unspecified Plan Patient is a 29-year-old male with history of bipolar disorder who presented to ER via ambulance due to bizarre behavior at home and his mother calling 911 for an assessment. Plan: CV 15 minute safety checks Continue home medications Obtain collateral Encourage groups Discharge planning 08/06: Active on unit. social with peers and staff. Patient reports feeling fine ; he reports he came to the hospital because my mind and body were not settling with certain things . Pt is requesting to have Trazodone decreased to 100mg PO bedtime; dose decreased. He is also requesting to be restart on Adderall XR; prescription monitoring program shows pt was prescribed Adderall XR 20mg since December 2024. Start: Adderall XR 20mg PO daily. Per nursing, slept 7 hours last night. balbir HICKMAN/HI/SANTIAGO/RUBEN. 08/07: Advised pt that his medications could cause sexual SE but recommended that he continue them for now. He didn't seem to be concerned about the sexual dysfunction that he reported and seemed more related to hypersexuality. Patient educated on: medication risk/benefits Informed Consent: understands Reason for continued inpatient stay Substantial Risk for: med/psych decompensation Time Spent With Patient Time: Total time managing care of this patient today 30____ minutes.
[2025-08-07 21:00] VITALS: RESP 18; TEMP 36.4; O2SAT 97
[2025-08-08 02:16] VITALS: BMI 26.5
[2025-08-08] MEDS: Dextroamphetamine/Amphetamine XR 10 MG CAP.ER.24H 20 MG PO (08:43)
[2025-08-08 19:55] VITALS: BP 144/98; PULSE 97; RESP 16; TEMP 36.6; O2SAT 100
--- NOTE | 2025-08-08 21:03 | P.PNPSI_ITS ---
Subjective Subjective Date of Service: 08/08/25 Reason For Visit: crisis Interim History: bizarre manner. stilted speech, somewhat repetitive. +RIS. MD informs pt of plan to DC stimulant. pt becomes quite agitated, hood BAUMAN is a pedophile and other such slurs. loudly wanring other patients in milieu against this public relations writer. per staff, blunted. taking meals. requiring frequent redirection from staring at female staff and peers. appearing to RIS. increased paranoia to staff. slept 6 hours. Mental Status Exam Mental Status Exam Narrative: Appearance: Wearing button down shirt, partially tucked into pants that are unzipped. Malodorous. Intense eye contact at times Attitude:Cooperative Speech: Fluent, mildly pressured but easily interruptible Motor activity: Calm and without any tics, tremors or dyskinesias. Steady gait Mood: irritable Affect: labile. Thought process: generally disorganized Thought content: no delusions or paranoia expressed until calling MD pedophile Perception: Denies AH/VH. Appears internally preoccupied at times Insight: impaired Judgment: impaired Diagnostics Vital Signs (24Hr): BMI result Body Mass Index 26.5 Labs 08/04/25 19:38 08/06/25 07:39 Medications Medications Current Medications Acetaminophen (Acetaminophen 325 Mg Tablet) 650 mg PO Q6H PRN PRN Reason: Headache/Pain, Scale 1-10 Last Admin: 08/06/25 08:32 Dose: 650 mg Al Hydroxide/Mg Hydroxide (Magnesium Hydrox/Alum Hydrox 30 Ml Oral.Susp) 30 ml PO Q6H PRN PRN Reason: Heartburn/Nausea Albuterol Sulfate (Albuterol Sulfate 90 Mcg 8 Gm Inhaler) 2 puff INHALE RQ4H PRN PRN Reason: sob Hydroxyzine HCl (Hydroxyzine Hcl 25 Mg Tablet) 25 mg PO Q6H PRN PRN Reason: Anxiety Last Admin: 08/08/25 20:13 Dose: 25 mg Lorazepam (Lorazepam 1 Mg Tablet) 1 mg PO TID PRN PRN Reason: severe anxiety Last Admin: 08/08/25 12:56 Dose: 1 mg Magnesium Hydroxide (Milk Of Magnesia 30 Ml Oral.Susp) 30 ml PO DAILY PRN PRN Reason: Constipation Nicotine Polacrilex (Nicotine Polacrilex 2 Mg Gum) 4 mg BUCCAL Q2H PRN PRN Reason: Nicotine Cravings Olanzapine (Olanzapine 10 Mg Tablet) 10 mg PO BEDTIME [facility] Last Admin: 08/08/25 20:13 Dose: 10 mg Olanzapine (Olanzapine 5 Mg Tablet) 5 mg PO Q4H PRN PRN Reason: agitation Last Admin: 08/08/25 17:30 Dose: 5 mg Oxcarbazepine (Oxcarbazepine 300 Mg Tablet) 600 mg PO BID [facility] Last Admin: 08/08/25 20:13 Dose: 600 mg Sertraline HCl (Sertraline Hcl 100 Mg Tablet) 100 mg PO DAILY [facility] Last Admin: 08/08/25 08:44 Dose: 100 mg Trazodone HCl (Trazodone Hcl 100 Mg Tablet) 100 mg PO BEDTIME [facility] Last Admin: 08/08/25 20:32 Dose: 100 mg Allergies Allergies Allergy/AdvReac Type Severity Reaction Status Date / Time No Known Allergies Allergy Verified 08/04/25 19:01 Assessment & Plan Assessment & Plan (1) Bipolar disorder: Status: Acute Code(s): F31.9 - Bipolar disorder, unspecified (2) PTSD (post-traumatic stress disorder): Status: Acute Code(s): F43.10 - Post-traumatic stress disorder, unspecified Plan Patient is a 29-year-old male with history of bipolar disorder who presented to ER via ambulance due to bizarre behavior at home and his mother calling 911 for an assessment. Plan: CV 15 minute safety checks Continue home medications Obtain collateral Encourage groups Discharge planning 08/06: Active on unit. social with peers and staff. Patient reports feeling fine ; he reports he came to the hospital because my mind and body were not settling with certain things . Pt is requesting to have Trazodone decreased to 100mg PO bedtime; dose decreased. He is also requesting to be restart on Adderall XR; prescription monitoring program shows pt was prescribed Adderall XR 20mg since December 2024. Start: Adderall XR 20mg PO daily. Per nursing, slept 7 hours last night. balbir HICKMAN/HI/VH/RUBEN. 08/07: Advised pt that his medications could cause sexual SE but recommended that he continue them for now. He didn't seem to be concerned about the sexual dysfunction that he reported and seemed more related to hypersexuality. 9/27: disorganized, bizarre engagement. stilted expression. calm until being told stimulant was being DCed, then became agitated yelling in plata that MD is a pedophile and a predator and loudly warning peers against MD. DC stimulant. otherwise continue current mgmt. pt was advised to take evidence-based mood stabilizer but declined. Reason for continued inpatient stay Substantial Risk for: inability to function Time Spent With Patient Time: Total time managing care of this patient today ____ minutes.
[2025-08-09 08:00] VITALS: BP 123/69; PULSE 93; RESP 16; TEMP 36.8; O2SAT 98
--- NOTE | 2025-08-09 17:46 | HO.PSYCHPN ---
Subjective Subjective Date of Service: 08/09/25 Reason For Visit: crisis Interim History: more calm and rational today. acknowledging schizophrenia as source of some of his problems. still seems to be clinging to the idea he should be prescribed stimulants, but not aggressive or labile when told they will not be restarted. apologized for his behavior yesterday. per staff, dep/anx 04/21. +RIS. ativan, zyprexa PRNs. i think the doctor's trying to kill me. asking about clonidine. paranoid, delusional, perseverative. appropriate this morning. Mental Status Exam Mental Status Exam Narrative: Appearance: disheveled Attitude:Cooperative Speech: Fluent Motor activity: Calm and without any tics, tremors or dyskinesias. Steady gait Mood: less irritable Affect: constricted, non-labile. Thought process: more organized than yesterday Thought content: no delusions or paranoia expressed Perception: Appears internally preoccupied at times Insight: impaired Judgment: impaired Diagnostics Vital Signs (24Hr): Vital Signs - 24 hr 08/08/25 19:55 08/09/25 08:00 Temperature 97.9 F 98.2 F Pulse Rate 97 93 Respiratory Rate 16 16 Blood Pressure 144/98 H 123/69 Pulse Oximetry 100 98 Oxygen Delivery Method Room Air Room Air BMI result Body Mass Index 26.5 Labs 08/04/25 19:38 08/06/25 07:39 Medications Medications Current Medications Acetaminophen (Acetaminophen 325 Mg Tablet) 650 mg PO Q6H PRN PRN Reason: Headache/Pain, Scale 1-10 Last Admin: 08/09/25 09:32 Dose: 650 mg Al Hydroxide/Mg Hydroxide (Magnesium Hydrox/Alum Hydrox 30 Ml Oral.Susp) 30 ml PO Q6H PRN PRN Reason: Heartburn/Nausea Albuterol Sulfate (Albuterol Sulfate 90 Mcg 8 Gm Inhaler) 2 puff INHALE RQ4H PRN PRN Reason: sob Hydroxyzine HCl (Hydroxyzine Hcl 25 Mg Tablet) 25 mg PO Q6H PRN PRN Reason: Anxiety Last Admin: 08/09/25 17:11 Dose: 25 mg Lorazepam (Lorazepam 1 Mg Tablet) 1 mg PO TID PRN PRN Reason: severe anxiety Last Admin: 08/09/25 12:35 Dose: 1 mg Magnesium Hydroxide (Milk Of Magnesia 30 Ml Oral.Susp) 30 ml PO DAILY PRN PRN Reason: Constipation Nicotine Polacrilex (Nicotine Polacrilex 2 Mg Gum) 4 mg BUCCAL Q2H PRN PRN Reason: Nicotine Cravings Olanzapine (Olanzapine 10 Mg Tablet) 10 mg PO BEDTIME [facility] Last Admin: 08/08/25 20:13 Dose: 10 mg Olanzapine (Olanzapine 5 Mg Tablet) 5 mg PO Q4H PRN PRN Reason: agitation Last Admin: 08/09/25 17:38 Dose: 5 mg Oxcarbazepine (Oxcarbazepine 300 Mg Tablet) 600 mg PO BID [facility] Last Admin: 08/09/25 08:21 Dose: 600 mg Sertraline HCl (Sertraline Hcl 100 Mg Tablet) 100 mg PO DAILY [facility] Last Admin: 08/09/25 08:21 Dose: 100 mg Trazodone HCl (Trazodone Hcl 100 Mg Tablet) 100 mg PO BEDTIME [facility] Last Admin: 08/08/25 20:32 Dose: 100 mg Allergies Allergies Allergy/AdvReac Type Severity Reaction Status Date / Time No Known Allergies Allergy Verified 08/04/25 19:01 Assessment & Plan Assessment & Plan (1) Bipolar disorder: Status: Acute Code(s): F31.9 - Bipolar disorder, unspecified (2) PTSD (post-traumatic stress disorder): Status: Acute Code(s): F43.10 - Post-traumatic stress disorder, unspecified Plan Patient is a 29-year-old male with history of bipolar disorder who presented to ER via ambulance due to bizarre behavior at home and his mother calling 911 for an assessment. Plan: CV 15 minute safety checks Continue home medications Obtain collateral Encourage groups Discharge planning 08/06: Active on unit. social with peers and staff. Patient reports feeling fine ; he reports he came to the hospital because my mind and body were not settling with certain things . Pt is requesting to have Trazodone decreased to 100mg PO bedtime; dose decreased. He is also requesting to be restart on Adderall XR; prescription monitoring program shows pt was prescribed Adderall XR 20mg since December 2024. Start: Adderall XR 20mg PO daily. Per nursing, slept 7 hours last night. balbir SI/HI/VH/RUBEN. 08/07: Advised pt that his medications could cause sexual SE but recommended that he continue them for now. He didn't seem to be concerned about the sexual dysfunction that he reported and seemed more related to hypersexuality. 08/08: disorganized, bizarre engagement. stilted expression. calm until being told stimulant was being DCed, then became agitated yelling in plata that MD is a pedophile and a predator and loudly warning peers against MD. DC stimulant. otherwise continue current mgmt. pt was advised to take evidence-based mood stabilizer but declined. 08/09: more calm, organized, logical today. seeming to acknowledge schizophrenia has a role in his symptoms more than he'd realized and that stimulants may not be the best idea for him. at the same time, seeming to hope they would be or will be restarted, concerned about how he is going to manage school and life if not on stimulants. discussion had around addressing schizophrenia first, then worrying about ADHD Sx. continue current mgmt. Reason for continued inpatient stay Substantial Risk for: inability to function Time Spent With Patient Time: Total time managing care of this patient today __25__ minutes.
[2025-08-09 18:52] VITALS: BP 112/66; PULSE 66; TEMP 36.7; O2SAT 99
[2025-08-09 19:40] VITALS: BP 128/75; PULSE 107; RESP 16; TEMP 37.1; O2SAT 98
[2025-08-10 08:00] VITALS: BP 112/64; PULSE 90; RESP 16; TEMP 36.9; O2SAT 97
--- NOTE | 2025-08-10 11:35 | P.PNPSI_ITS ---
Subjective Subjective Date of Service: 08/10/25 Reason For Visit: crisis Subjective Notes: 3 Day Interim History: Active on unit. social with peers and staff. medication compliant. Patient reports feeling good today; denies any issues at this time. He reports sleeping well; per nursing, slept 7 hours last night. denies SI/HI/VH/AH. Plan to discharge home tomorrow on his 3 day. Patient reports he plans on following up with outpatient providers. Medication Compliance: Yes Side effects from medications: No Attending Groups: Intermittent Mental Status Exam Mental Status Exam Narrative: Pt is alert and oriented; behavior is cooperative and calm; dressed in casual attire; mood is described as good ; eye contact appropriate; Speech is normal rate, volume and not pressured; thought process is organized; Thought content is on discharge; denies SI/HI/VH/AH. Diagnostics Vital Signs (24Hr): Vital Signs - 24 hr 08/09/25 18:52 08/09/25 19:40 08/10/25 08:00 Temperature 98.1 F 98.8 F 98.4 F Pulse Rate 66 107 H 90 Respiratory Rate 16 16 Blood Pressure 112/66 128/75 112/64 Pulse Oximetry 99 98 97 Oxygen Delivery Method Room Air Room Air Room Air BMI result Body Mass Index 26.5 Labs 08/04/25 19:38 08/06/25 07:39 Medications Medications Current Medications Acetaminophen (Acetaminophen 325 Mg Tablet) 650 mg PO Q6H PRN PRN Reason: Headache/Pain, Scale 1-10 Last Admin: 08/10/25 08:15 Dose: 650 mg Al Hydroxide/Mg Hydroxide (Magnesium Hydrox/Alum Hydrox 30 Ml Oral.Susp) 30 ml PO Q6H PRN PRN Reason: Heartburn/Nausea Albuterol Sulfate (Albuterol Sulfate 90 Mcg 8 Gm Inhaler) 2 puff INHALE RQ4H PRN PRN Reason: sob Hydroxyzine HCl (Hydroxyzine Hcl 25 Mg Tablet) 25 mg PO Q6H PRN PRN Reason: Anxiety Last Admin: 08/10/25 09:24 Dose: 25 mg Lorazepam (Lorazepam 1 Mg Tablet) 1 mg PO TID PRN PRN Reason: severe anxiety Last Admin: 08/10/25 09:42 Dose: 1 mg Magnesium Hydroxide (Milk Of Magnesia 30 Ml Oral.Susp) 30 ml PO DAILY PRN PRN Reason: Constipation Nicotine Polacrilex (Nicotine Polacrilex 2 Mg Gum) 4 mg BUCCAL Q2H PRN PRN Reason: Nicotine Cravings Olanzapine (Olanzapine 10 Mg Tablet) 10 mg PO BEDTIME [facility] Last Admin: 08/09/25 20:32 Dose: 10 mg Olanzapine (Olanzapine 5 Mg Tablet) 5 mg PO Q4H PRN PRN Reason: agitation Last Admin: 08/10/25 02:19 Dose: 5 mg Oxcarbazepine (Oxcarbazepine 300 Mg Tablet) 600 mg PO BID [facility] Last Admin: 08/10/25 08:15 Dose: 600 mg Sertraline HCl (Sertraline Hcl 100 Mg Tablet) 100 mg PO DAILY [facility] Last Admin: 08/10/25 08:15 Dose: 100 mg Trazodone HCl (Trazodone Hcl 100 Mg Tablet) 100 mg PO BEDTIME [facility] Last Admin: 08/09/25 20:33 Dose: 100 mg Allergies Allergies Allergy/AdvReac Type Severity Reaction Status Date / Time No Known Allergies Allergy Verified 08/04/25 19:01 Assessment & Plan Assessment & Plan (1) Bipolar disorder: Status: Acute Code(s): F31.9 - Bipolar disorder, unspecified (2) PTSD (post-traumatic stress disorder): Status: Acute Code(s): F43.10 - Post-traumatic stress disorder, unspecified Plan Patient is a 29-year-old male with history of bipolar disorder who presented to ER via ambulance due to bizarre behavior at home and his mother calling 911 for an assessment. Plan: CV 15 minute safety checks Continue home medications Obtain collateral Encourage groups Discharge planning 08/06: Active on unit. social with peers and staff. Patient reports feeling fine ; he reports he came to the hospital because my mind and body were not settling with certain things . Pt is requesting to have Trazodone decreased to 100mg PO bedtime; dose decreased. He is also requesting to be restart on Adderall XR; prescription monitoring program shows pt was prescribed Adderall XR 20mg since December 2024. Start: Adderall XR 20mg PO daily. Per nursing, slept 7 hours last night. balbir HICKMAN/HI/VH/AH. 08/07: Advised pt that his medications could cause sexual SE but recommended that he continue them for now. He didn't seem to be concerned about the sexual dysfunction that he reported and seemed more related to hypersexuality. 08/08: disorganized, bizarre engagement. stilted expression. calm until being told stimulant was being DCed, then became agitated yelling in plata that MD is a pedophile and a predator and loudly warning peers against MD. DC stimulant. otherwise continue current mgmt. pt was advised to take evidence-based mood stabilizer but declined. 08/09: more calm, organized, logical today. seeming to acknowledge schizophrenia has a role in his symptoms more than he'd realized and that stimulants may not be the best idea for him. at the same time, seeming to hope they would be or will be restarted, concerned about how he is going to manage school and life if not on stimulants. discussion had around addressing schizophrenia first, then worrying about ADHD Sx. continue current mgmt. 08/10: Active on unit. social with peers and staff. medication compliant. Patient reports feeling good today; denies any issues at this time. He reports sleeping well; per nursing, slept 7 hours last night. denies SI/HI/VH/AH. Plan to discharge home tomorrow on his 3 day. Patient reports he plans on following up with outpatient providers. Patient educated on: diagnosis and medication risk/benefits Reason for continued inpatient stay Substantial Risk for: stable for discharge Time Spent With Patient Time: Total time managing care of this patient today _20___ minutes.
[2025-08-10 20:00] VITALS: BP 117/57; PULSE 105; RESP 18; TEMP 36.6; O2SAT 97
[2025-08-11 07:59] VITALS: BP 115/72; PULSE 100; RESP 20; TEMP 36.3; O2SAT 98
[2025-08-11] MEDS: Naloxone HCl Nasal TAKE HOME 4 MG SPRAY 8 MG NOSTRILALT (08:45)
--- NOTE | 2025-08-13 08:44 | P.DS_ITS ---
DS: Providers Provider Date of Service: 08/10/25 Date of admission: 08/05/25 11:14 Date of discharge: 08/11/25 Primary care physician: [facility] Admitting clinician: Sagrario Coronado Attending physician on admission: Trav Talbert Attending physician on discharge: Trav Talbert Discharging clinician: Sagrario Coronado DS: Diagnosis Discharge Diagnosis (1) Bipolar disorder: Status: Acute (2) PTSD (post-traumatic stress disorder): Status: Acute DS: Medications Discharge Medications Home Medications: Previous Rx's ?Medication ?Instructions ?Recorded albuterol sulfate 90 mcg/actuation 2 puff inhalation R Q4H PRN sob 30 02/20/24 aerosol inhaler (Ventolin HFA) days #6.7 grams hydroxyzine HCl 25 mg tablet 25 mg PO Q6H PRN Anxiety 30 days 02/20/24 #60 tabs olanzapine 10 mg tablet 10 mg PO BEDTIME 30 days #30 tabs 02/20/24 oxcarbazepine 600 mg tablet 600 mg PO BID 30 days #60 tabs 02/20/24 sertraline 100 mg tablet 100 mg PO DAILY 30 days #30 tabs 02/20/24 trazodone 150 mg tablet 150 mg PO BEDTIME 30 days #3 0 tabs 02/20/24 Mental Status Exam Mental Status Exam Narrative: Pt is alert and oriented; behavior is cooperative and calm; dressed in casual attire; mood is described as good ; eye contact appropriate; Speech is normal rate, volume and not pressured; thought process is organized; Thought content is on discharge; denies SI/HI/VH/AH. Data Data Completed and Pending Completed studies during hospitalization [Text1]: 08/06/25 07:39 Estimat Average Glucose 97 Hemoglobin A1c % 5.0 DS: Summary Hospital Course Hospital Course: Patient is a 29-year-old male with history of bipolar disorder who presented to ER via ambulance due to bizarre behavior at home and his mother calling 911 for an assessment. Per crisis report, patient presented to ambulance after his mother contacted 911 for patient reportedly acting bizarre. Patient was reportedly kicking a door in the home and has not been making sense. Intermediate escalation and has been overall acting out of character. Patient's eye contact is intense at times and often fixating on 1 area in the room. Presents as paranoid. Patient reported, I do not have a mood. Denies SI/HI/VH/AH. Patient reports he has not eaten in days and has not slept in months. History of multiple inpatient psychiatric hospitalizations. Patient reports having an outpatient therapist via telehealth however can not recall name. U tox positive for marijuana. Collateral was obtained from patient's mother, Criss, who reports patient has not been himself for about a month. She reported patient has been randomly yelling and discussing statements that are actually happening. During admission assessment, patient presents alert and oriented x3. Guarded. Paranoid. Looking around the room as if he is seeing or listening to someone speak; however when asked about hallucinations patient denies. Patient reports that he came to the hospital because he has bipolar/schizophrenia. He reports he feels like he sleeps 7 hours a day on most nights and states that his appetite is fine. Patient denies SI/HI. He reports he would like a referral for a prescriber and therapist in the area. Difficult to engage. Plan: CV 15 minute safety checks Continue home medications Obtain collateral Encourage groups Discharge planning Active on unit. social with peers and staff. Patient reports feeling fine ; he reports he came to the hospital because my mind and body were not settling with certain things . Pt is requesting to have Trazodone decreased to 100mg PO be dtime; dose decreased. He is also requesting to be restart on Adderall XR; prescription monitoring program shows pt was prescribed Adderall XR 20mg since December 2024. Start: Adderall XR 20mg PO daily. Per nursing, slept 7 hours last night. deneis SI/HI/VH/AH. Advised pt that his medications could cause sexual SE but recommended that he continue them for now. He didn't seem to be concerned about the sexual dysfunction that he reported and seemed more related to hypersexuality. disorganized, bizarre engagement. stilted expression. calm until being told stimulant was being DCed, then became agitated yelling in plata that MD is a pedophile and a predator and loudly warning peers against MD. DC stimulant. otherwise continue current mgmt. pt was advised to take evidence-based mood stabilizer but declined. more calm, organized, logical today. seeming to acknowledge schizophrenia has a role in his symptoms more than he'd realized and that stimulants may not be the best idea for him. at the same time, seeming to hope they would be or will be restarted, concerned about how he is going to manage school and life if not on stimulants. discussion had around addressing schizophrenia first, then worrying about ADHD Sx. continue current mgmt. Active on unit. social with peers and staff. medication compliant. Patient reports feeling good today; denies any issues at this time. He reports sleeping well; per nursing, slept 7 hours last night. denies SI/HI/VH/AH. Plan to discharge home tomorrow on his 3 day. Patient reports he plans on following up with outpatient providers. Status at Discharge Cognitive/behavioral status at discharge: Patient has insight and demonstrates good judgment in terms of wanting to pursue treatment. Patient has a safety plan that includes presenting to the closest ER or calling 911 if feeling unsafe. Functional status at discharge: independent ambulation Overall status at discharge: patient is back to baseline Time Spent with Patient Time attestation: Total time managing care of this patient today _20___ minutes. Time spent: Less than 30 minutes Discharge Plan Discharge Anticipated Discharge Date/Time: 08/11/25 13:00 Patient Disposition: Home, Self-Care Discharge Diagnosis: Bipolar d/o, PTSD, cocaine use d/o Referrals: Fatmata Rogers ([facility]) [Other] - 08/13/25 1:00 pm Referral Note: In person appointment. Terrance Cullen ([facility]) [Other] - 09/10/25 10:20 am Referral Note: telehealth appointment Center[facility] [Primary Care Provider, Medical] - 1 Week Referral Note: 08-11-25 Please contact your primary care provider within 7-10 days of discharge. No release on file. Discharge Medications: Continued albuterol sulfate [Ventolin HFA] 90 mcg/actuation Hfa Aerosol Inhaler 2 puff inhalation RQ4H PRN (Reason: sob) 30 Days Qty: 6.7 1RF hydroxyzine HCl 25 mg Tablet 25 mg PO Q6H PRN (Reason: Anxiety) 30 Days Qty: 60 1RF olanzapine 10 mg Tablet 10 mg PO BEDTIME 30 Days Qty: 30 1RF sertraline 100 mg tablet 100 mg PO DAILY 30 Days Qty: 30 1RF trazodone 150 mg tablet 150 mg PO BEDTIME 30 Days Qty: 30 1RF oxcarbazepine 600 mg tablet 600 mg PO BID 30 Days Qty: 60 0RF Discharge Orders: Discharge Order (Routine); Ordered 08/11/25 Ordered By: Sagrario Coronado Diet: Regular diet Activity on Discharge: As tolerated Stand Alone Forms: Patient Portal Discharge page, Community Support Print Language: Ecuadorean Care Plan Goals: Maintain mood and safe behaviors Take medications as prescribed Continue to pursue sobriety Practice coping skills Continue with outpatient providers and reach out to them as needed Health Concerns: Mood stability and behaviors Sobriety Plan of Treatment: Follow up with your PCP, psychiatric provider and other outpatient providers regarding above concerns Take medications as prescribed Assessment: Patient has insight and demonstrates good judgment in terms of wanting to pursue treatment. Patient has a safety plan that includes presenting to the closest ER or calling 911 if feeling unsafe. Discharge Date/Time: 08/11/25 14:17
== END 2025-08-11 14:17 | disposition home or self-care (01) | DRG 753 ==
LOC: HO.ED 08-05 11:16 → HO.PADLT16 08-05 13:14
PROVIDERS: Admitting Provider Registered Nurse; Emergency Provider Emergency Medicine; Responsible Provider Registered Nurse; Visit Provider Psychiatry & Neurology Psychiatry
DX: F31.9 Bipolar disorder, unspecified (principal); F14.10 Cocaine abuse, uncomplicated; F43.10 Post-traumatic stress disorder, unspecified; J45.909 Unspecified asthma, uncomplicated; Z79.899 Other long term (current) drug therapy
CPT/HCPCS: 36415; 80053; 80061; 80143; 80179; 80307; 81001; 83036; 85025; 93005; 99285; S9485

== ENCOUNTER → 2025-08-05 09:26 | Outpatient (BNV) | payer MEDICAID, SELFPAY | PROVIDERS: Admitting Provider Registered Nurse; Emergency Provider Emergency Medicine; Responsible Provider Registered Nurse; Visit Provider Internal Medicine Cardiovascular Disease | DX: Z13.6 Encounter for screening for cardiovascular disorders (principal) | CPT/HCPCS: 93010 ==

== ENCOUNTER → 2025-08-05 11:14 | Outpatient (BNV) | payer OTHER, SELFPAY | PROVIDERS: Admitting Provider Registered Nurse; Emergency Provider Emergency Medicine; Responsible Provider Registered Nurse; Visit Provider Nurse Practitioner Family | DX: Z02.2 Encounter for examination for admission to residential institution (principal); J45.909 Unspecified asthma, uncomplicated | CPT/HCPCS: 99429 ==

== ENCOUNTER → 2025-08-05 11:14 | Outpatient (BNV) | payer OTHER, SELFPAY | PROVIDERS: Admitting Provider Registered Nurse; Emergency Provider Emergency Medicine; Responsible Provider Registered Nurse; Visit Provider Registered Nurse | DX: F31.9 Bipolar disorder, unspecified (principal); F43.10 Post-traumatic stress disorder, unspecified | CPT/HCPCS: 99231; 99232; 99233 ==

== ENCOUNTER 2025-08-23 15:15 | Inpatient (IN) | payer OTHER, SELFPAY ==
[2025-08-23 15:22] VITALS: BP 120/84; PULSE 88; O2SAT 100; BMI 25.8
--- NOTE | 2025-08-23 15:22 | ECG_ITS ---
Test Reason : MED CLEARANCE Blood Pressure : */* mmHG Vent. Rate : 93 BPM Atrial Rate : 93 BPM P-R Int : 136 ms QRS Dur : 88 ms QT Int : 344 ms P-R-T Axes : 85 43 40 degrees QTcB Int : 427 ms Normal sinus rhythm Normal ECG When compared with ECG of 05-Aug-2025 10:14, No significant change was found Referred By: Lisette Bryan Electronically Signed By: Ruben Betts
--- NOTE | 2025-08-23 15:26 | ED.PSYCH ---
HPI - Psych General Chief Complaint: Psychiatric Symptoms Stated Complaint: Crisis Time Seen by Provider: 08/23/25 15:25 Source: patient, EMS, RN notes reviewed and old records reviewed Mode of arrival: EMS Limitations: no limitations History of Present Illness ED Provider: Esequiel HPI Narrative: Patient is a 29-year-old male with history of bipolar disorder, PTSD, recently discharged from inpatient unit on 08/13 presenting to the emergency department via EMS after family called 911 stating that the patient was behaving erratically at home. Upon arrival to the ED patient appears guarded, appears to be responding to internal stimuli and reports visual hallucinations. He also complains of headache. States that the medications prescribed to him do not seem to be working. Denies suicidal or homicidal ideation. MD complaint: hallucinations Related Data Home Medications ?Medication ?Instructions ?Recorded ?Confirmed bupropion HCl 300 mg 24 hr tablet, 300 mg PO DAILY 08/23/25 08/23/25 extended release cholecalciferol (vitamin D3) 50 50 mcg PO DAILY 08/24/25 08/24/25 mcg (2,000 unit) tablet (Vitamin D3) dextroamphetamine-amphetamine ER 1 cap PO QAM 08/24/25 08/24/25 20 mg 24hr capsule,extend release (Adderall XR) ferrous fumarate 324 mg (106 mg 324 mg PO DAILY 08/24/25 08/24/25 iron) tablet Previous Rx's ?Medication ?Instructions ?Recorded albuterol sulfate 90 mcg/actuation 2 puff inhalation RQ4H PRN sob 30 02/20/24 aerosol inhaler (Ventolin HFA) days #6.7 grams hydroxyzine HCl 25 mg tablet 25 mg PO Q6H PRN Anxiety 30 days 02/20/24 #60 tabs olanzapine 10 mg tablet 10 mg PO BEDTIME 30 days #30 tabs 02/20/24 oxcarbazepine 600 mg tablet 600 mg PO BID 30 days #60 tabs 02/20/24 sertraline 100 mg tablet 100 mg PO DAILY 30 days #30 tabs 02/20/24 trazodone 150 mg tablet 150 mg PO BEDTIME 30 days #30 tabs 02/20/24 Allergies Allergy/AdvReac Type Severity Reaction Status Date / Time No Known Allergies Allergy Verified 08/23/25 15:24 Review of Systems Review of Systems: as per hpi Yes all other systems are reviewed and are negative Constitutional: Constitutional: Reports as per [facility] Past Medical History Medical History (Updated 08/25/25 @ 12:49 by Sara Luna) Acute psychosis Asthma Bipolar 1 disorder Surgical History No significant past surgical history Social History Social History (System 10/08/23 @ 11:23 by Krystyna Flores) Household Members: Family Housing: House Do you presently have visiting nurse or other home services: No Alcohol intake: current Alcohol intake frequency: a few times a week Alcohol type: hard liquor Comment: asleep Patient Tobacco Use Status: Never used Tobacco e-Cigarette/Vaping Use: Never Used Second Hand Smoke Exposure: No Substance Use Type: Marijuana Advance Directives: No Advance Directives Information Provided: No Do you have a plan to hurt others: No Plan service: No Sexual orientation: Lesbian/Duff/Homosexual Physical Exam Vital Signs: Vital Signs: Last Vital Signs Temp 98.7 F 08/24/25 20:26 Pulse 88 08/24/25 20:26 Resp 14 08/25/25 06:00 BP 143/81 H 08/24/25 20:26 Pulse Ox 98 08/24/25 20:26 O2 Del Method Room Air 08/24/25 20:26 BMI result Body Mass Index 25.8 Const: General: cooperative, healthy appearing and no acute distress Orientation/consciousness: oriented to person, oriented to place, oriented to time and patient oriented x3 Limitations: no limitations HEENT: Head: Yes normocephalic and Yes atraumatic Ears: external ears normal General nose exam: Normal external nose present Face and sinus: Yes face symmetric Mouth: oropharynx normal and moist mucous membranes Throat: Yes uvula midline Eyes: Pupils: Equal, round and reactive pupils present Neck: Neck: Yes normal visual inspection and Yes supple Resp: Effort & Inspection: normal respiratory effort and able to speak in complete sentences Auscultation: clear to auscultation bilaterally Cardio: Rate: regular rate Rhythm: regular rhythm Heart sounds: S1 normal heart sound present and S2 normal heart sound present GI: Palpation (GI): Soft to palpation and nontender Auscultation: normoactive bowel sounds : General: Yes no CVA tenderness Back/Spine/Pelvis: Back: no CVA tenderness Skin: General skin exam: elasticity normal and turgor normal Neuro: General: oriented to person, oriented to place, oriented to time, patient oriented x3, moves all extremities, no focal motor deficits and CN's II-XI intact bilaterally Cranial nerves: Yes Equal, round and reactive pupils present Cognition (Neuro): normal cognition Extrem: General: Yes full ROM, Yes no pedal edema and Yes no calf tenderness Psych: Appearance: grossly normal Speech and movement: Other speech and movement exam findings present (Psych) (tanential) Affect: Blunted affect present Attitude: cooperative Thought process: Tangential thought process present Thought content: suicidality, no homicidality and Hallucination(s) present visual Insight: Limited insight present (Psych) Judgement: Limited judgement present (Psych) Course Reevaluation(s) Reevaluation #1: Time: 17:31 Date: 08/24/25 Provider: Danilo Crane MD Patient in physician observation for psychiatric evaluation.? No acute events reported overnight. No current complaints. VS stable.? Was seen by the care team today and recommendation is for inpatient level of care. No acute events during the day shift. Will continue to monitor. Time: 17:32 Reevaluation #2: Time: 16:18 Date: 08/25/25 Provider: Danilo Crane MD Physician observation ended at 13:00. No acute events overnight. The patient has been stable today. The patient has been accepted for admission to inpatient psychiatry and was admitted without incident. Medications Administered Generic Name Dose Route Start Last Admin Trade Name Freq PRN Reason Stop Dose Admin Bupropion HCl 300 mg 08/24/25 09:00 08/25/25 12:55 Bupropion Hcl Xl 300 Mg Tab.Er.24h PO 300 mg DAILY RAY Administration Hydroxyzine HCl 25 mg 08/24/25 07:29 08/25/25 13:32 Hydroxyzine Hcl 25 Mg Tablet PO 25 mg Q6H PRN Administration Anxiety Olanzapine 10 mg 08/24/25 21:00 08/24/25 19:28 Olanzapine 10 Mg Tablet PO 10 mg BEDTIME RAY Administration Oxcarbazepine 600 mg 08/24/25 09:00 08/25/25 12:55 Oxcarbazepine 300 Mg Tablet PO 600 mg BID RAY Administration Sertraline HCl 100 mg 08/24/25 09:00 08/25/25 12:55 Sertraline Hcl 100 Mg Tablet PO 100 mg DAILY RAY Administration Trazodone HCl 150 mg 08/24/25 21:00 08/24/25 19:28 Trazodone Hcl 50 Mg Tablet PO 150 mg BEDTIME RAY Administration Discontinued Medications Generic Name Dose Route Start Last Admin Trade Name Celestine PRN Reason Stop Dose Admin Acetaminophen 975 mg 08/23/25 15:31 08/23/25 15:49 Acetaminophen 325 Mg Tablet PO 08/23/25 15:32 975 mg ONCE ONE Administration Acetaminophen 975 mg 08/25/25 06:34 08/25/25 06:40 Acetaminophen 325 Mg Tablet PO 08/25/25 06:35 975 mg ONCE ONE Administration Olanzapine 10 mg 08/23/25 18:32 08/23/25 18:40 Olanzapine Odt 10 Mg Tab.Rapdis TRANSLINGU 08/23/25 18:33 10 mg ONCE ONE Administration Trazodone HCl 150 mg 08/23/25 18:49 08/23/25 18:55 Trazodone Hcl 50 Mg Tablet PO 08/23/25 18:50 150 mg ONCE ONE Administration Medical Decision Making Medical Decision Making [facility] Narrative: Patient is a 29-year-old male with history of bipolar disorder, PTSD, recently discharged from inpatient unit on 08/13 presenting to the emergency department via EMS after family called 911 stating that the patient was behaving erratically at home. On exam patient is awake, A+Ox3, VS WNL, afebrile, normal neurological exam without focal deficits, physical exam findings as above. Given reported symptoms and physical exam findings, initial differential includes but is not limited to bipolar disorder, PTSD, visual hallucinations. Plan for medical clearance, then CARE team evaluation. Tylenol ordered for headache. Labs unremarkable. Urine drug screen positive for cannabis only. Per CARE team, patient to be admitted for inpatient level of care. I am in agreement with this plan. Patient placed on physician observation for bed search. Differential Diagnosis Differential Diagnoses: The differential diagnosis associated with the presentation includes As per [facility] Admission/Observation Consideration of admission/observation: Escalation of care including admission/observation considered Consult Healthcare Provider Management of the patient was discussed with: Behavioral Health Provider Lab Data [facility] Lab Attestation statement: I reviewed the patient's lab results. as per [facility] 08/23/25 15:37 08/23/25 15:36 Labs: Lab Results 08/23/25 08/23/25 08/23/25 Range/Units 15:36 15:37 15:45 WBC 8.0 (4.8-10.8) X10*3/uL RBC 5.65 (4.60-5.80) X10*6/uL Hgb 15.1 (14.0-18.0) g/dl Hct 44.7 (42.0-52.0) % MCV 79.1 L (80.0-98.0) fL MCH 26.7 L (27.0-33.0) pg MCHC 33.8 (31.0-36.0) g/dl RDW 15.6 (11.0-16.0) % Plt Count 211 (160-400) X10*3/uL MPV 10.2 (9.4-12.4) fL Immature Gran % (Auto) 0.4 (0.0-0.4) % Neut % (Auto) 65.1 (45-73) % Lymph % (Auto) 28.1 (20-40) % Callahan % (Auto) 5.9 (2-11) % Eos % (Auto) 0.4 (0-4) % Baso % (Auto) 0.1 (0-2) % Lymph # (Auto) 2.3 (1.2-4.9) X10*3/uL Callahan # (Auto) 0.5 (0.1-1.2) X10*3/uL Eos # (Auto) 0.0 (0.0-0.4) X10*3/uL Baso # (Auto) 0.0 (0.0-0.2) X10*3/uL Abs Immat Gran (auto) 0.03 (0.00-0.03) X10*3/uL Absolute Neuts (auto) 5.2 (2.0-8.3) x10*3/uL Absolute Nucleated RBC 0.000 (0.0-0.012) X10*3/uL Nucleated RBC % (auto) 0.0 (0.0-0.2) /100WBC Sodium 140 (135-145) mmol/L Potassium 4.0 (3.3-5.1) mmol/L Chloride 106 (96-108) mmol/L Carbon Dioxide 28 (22-29) mmol/L Anion Gap 10 L (12-20) BUN 11 (9-16) mg/dL Creatinine 0.79 (0.5-1.4) mg/dL Estim Creat Clear Calc 140.4 Estimated GFR > 60 Random Glucose 86 (60-115) mg/dL Calcium 9.1 (8.4-10.2) mg/dL Total Bilirubin 1.6 H (0.0-1.0) mg/dL AST 19 (5-37) U/L ALT 13 (0-40) U/L Alkaline Phosphatase 77 (39-117) U/L Total Protein 7.4 (6.5-8.0) g/dL Albumin 4.6 (3.5-5.0) g/dL Urine Color Yellow Urine Appearance Clear Urine pH 7.5 (5.0-9.0) Ur Specific Sells 1.015 (1.005-1.025) Urine Protein Negative (Neg-Trace) mg/dL Urine Glucose (UA) Negative (Negative) mg/dL Urine Ketones Negative (Negative) mg/dL Urine Blood Negative (Negative) Urine Nitrite Negative (Negative) Ur Leukocyte Esterase Negative (Negative) Salicylates < 5.0 L (15-30) mg/dL Urine Opiates Screen Not Detected (Not Detect) Ur Buprenorphine Scrn Not Detected (Not Detect) ng/mL Ur Oxycodone Screen Not Detected (Not Detect) ng/mL Urine Methadone Screen Not Detected (Not Detect) ng/mL Urine Fentanyl Screen Not Detected (Not Detect) Acetaminophen < 3 (<30) mcg/mL Ur Barbiturates Screen Not Detected (Not Detect) Ur Phencyclidine Scrn Not Detected (Not Detect) Ur Amphetamines Screen Not Detected (Not Detect) U Benzodiazepines Scrn Not Detected (Not Detect) Urine Cocaine Screen Not Detected (Not Detect) U Marijuana (THC) Screen POSITIVE H (Not Detect) Ethyl Alcohol < 10 mg/dL COVID-19 ([facility]VA) Negative (Negative) COVID-19 Clin Com See Note External Record Review External record reviewed: Inpatient record, Office record and Outpatient record Discharge Plan Discharge Clinical Impression: Depressive disorder, Cannabis use disorder Psychosis Qualifiers: Psychosis type: unspecified psychosis type Qualified Code(s): F29 - Unspecified psychosis not due to a substance or known physiological condition Patient Disposition: Admitted As Inpatient Interventions: [place]-Suicide Risk Severity Scale Last Done: 08/24/25 18:17 Admission Worksheet (ED) Last Done: 08/25/25 12:52 Discharge Date/Time: 08/25/25 16:16
--- OUTSIDE RECORDS SUMMARY | 2025-08-23 15:30 | XMS_ITS | Encounter Summary ---
Author Organization [employer] Address [address] [place] [address] [address] [place] [address] Care Team Providers Care Maintenance Advisor Name Role Phone Dana Pires NP Primary Care Provider [phone] Vinicio Dumont RN Unavailable [phone] Reason for Visit * Reason Comments Med Refill Encounter Details Date Type Department Care Team ([facility] st Contact Info) Description 12/19/2023 Refill [facility] MED[facility]INE [address] [place] [address] Dana Pires NP [address] [place] [address] Bipolar affective disorder, remission status unspecified (CMS/[facility]) Social History Tobacco Use Types Packs/Day [...] Diagnosis Bipolar affective disorder, remission status unspecified (CMS/HCC) (HCC) documented in this encounter Additional Health Concerns Assessment Noted Time PHQ-9 Depression Total Score: 0 10/03/20 9:10 AM EST documented as of this encounter Care Teams Maintenance Advisor Relationship Specialty Start Date End Date Dana Pires NP [address] [place] [address] PCP - General Family Medicine 10/03/23 Vinicio Dumotn RN [address] [place] [address] Steam Frame OperatorCrystal Inspector 10/16/24 02/01/25 documented as of this encounter
--- OUTSIDE RECORDS SUMMARY | 2025-08-23 15:30 | XMS_ITS | Encounter Summary ---
Author Organization [employer] Address [address] [place] [address] 7 [place] [address] Care Team Providers Care Project Assistant Name Role Phone Dana Pires NP Primary Care Provider [phone] Reason for Visit * Reason Onset Date Comments Med Refill 08/17/2025 Encounter Details Date Type Department Care Team ([facility] st Contact Info) Description 08/17/2025 Refill [facility] MED[facility]INE [address] [place] [address] Dana Pires NP [address] [place] [address] DANNY (generalized anxiety disorder); Severe major depression with psychotic features (CMS/HCC) (HCC) Social History Tobacco Use Types Packs/Day Years Used Date Smoking Tobacco: Former Cigarettes Passive Smoke Exposure: Never Smokeless Tobacco: Former Alcohol Use Standard Drinks/Week Comments Yes 2 [...] encounter Miscellaneous Notes * Telephone Encounter - Radha Villanueva LPN - 08/18/2025 8:01 AM EDT Last seen 06.25.25 * Telephone Encounter - Patel Rodgers - 08/17/2025 4:44 PM EDT TC from pt requesting medication refill. Medications needing refill: hydrOXYzine pamoate (Vistaril) 25 MG capsule buPROPion XL (Wellbutrin XL) 300 MG 24 hr tablet To be sent to: [facility]/pharmacy #[id number] - [place] - [address] [facility] documented in this encounter Plan of Treatment Not on file documented as of this encounter Visit Diagnoses Diagnosis DANNY (generalized anxiety disorder) Generalized anxiety disorder Severe major depression with psychotic features (CMS/HCC) (HCC) Major depressive disorder, single episode, severe, specified as with psychotic behavior documented in this encounter Additional Health Concerns Assessment Noted Time PHQ-9 Depression Total Score: 6 12/24/19 25 2:20 PM EST documented as of this encounter Care Teams Project Assistant Relationship Specialty Start Date End Date Dana Pires NP [address] [place] [address] PCP - General Family Medicine 10/03/23 documented as of this encounter
--- OUTSIDE RECORDS SUMMARY | 2025-08-23 15:30 | XMS_ITS | Encounter Summary ---
Author Organization [employer] Address [address] [facility] [address] [place] [address] Care Team Providers Care Tree And Shrub Technician Name Role Phone Dana Pires NP Primary Care Provider [phone] Vinicio Dumont RN Unavailable [phone] Encounter Details Date Type Department Care Team ([facility] st Contact Info) Description 09/25/2024 Orders Only [facility] MEDICINE [address] [place] [address] Dana Pires NP [address] [place] [address] Social History Tobacco Use Types Packs/Day Years [...] documented as of this encounter Care Teams Tree And Shrub Technician Relationship Specialty Start Date End Date Dana Pires NP [address] [place] [address] PCP - General Family Medicine 10/03/23 Vinicio Dumont RN [address] [place] [phone] Button ClamperProvider Relations Specialist 10/16/24 02/01/25 documented as of this encounter
--- OUTSIDE RECORDS SUMMARY | 2025-08-23 15:30 | XMS_ITS | Encounter Summary ---
Author Organization [employer] Address [address] [place] [address] 7 [place] [address] Care Team Providers Care Mushroom Cultivator Name Role Phone Dana Pires NP Primary Care Provider [phone] Vinicio Dumont RN Unavailable [phone] Reason for Visit * Reason Onset Date Comments Hospital Follow-up 10/07/2024 Encounter Details Date Type Department Care Team ([facility] st Contact Info) Description 10/07/2024 Telephone [facility] MEDICINE [address] [place] [address] Dana Pires NP [address] [place] [address] Hospital Follow-up Social History Tobacco Use Types [...] from pt requesting a HDF appt. Hospital: [facility] Date of admission: 10/03 Discharge date: 10/08 Diagnosed: Depression, Overdose on Clonadine, and Bipolar Disorder. Contact pt at [phone] *Send message to [facility] Clinical Care Coordinators documented in this encounter Plan of Treatment Not on file documented as of this encounter Visit Diagnoses Not on filedocumented in this encounter Additional Health Concerns Assessment Noted Time PHQ-9 Depression Total Score: 17 024 10:49 AM EST documented as of this encounter Care Teams Mushroom Cultivator Relationship Specialty Start Date End Date Dana Pires NP [address] [place] [address] PCP - General Family Medicine 10/03/23 Vinicio Dumont RN [address] [place] [address] Metal PolisherSanforizing Machine Operator 10/16/24 02/01/25 documented as of this encounter
--- OUTSIDE RECORDS SUMMARY | 2025-08-23 15:30 | XMS_ITS | Encounter Summary ---
Author Organization [employer] Address [address] [place] [address] [address] [place] [address] Care Team Providers Care Presser Machine Name Role Phone Dana Pires NP Primary Care Provider [phone] Vinicio Dumont RN Unavailable [phone] Reason for Visit * Reason Comments Med Refill Encounter Details Date Type Department Care Team ([facility] st Contact Info) Description 06/12/2024 Refill [facility] MED[facility]INE [address] [place] [address] Dana Pires NP [address] [place] [address] Bipolar affective disorder, remission status unspecified (CMS/[facility]) Social History Tobacco Use Types Packs/Day Years [...] documented as of this encounter Care Teams Presser Machine Relationship Specialty Start Date End Date Dana Pires NP [address] [place] [address] PCP - General Family Medicine 10/03/23 Vinicio Dumont RN [address] [place] [address] Fruit Or Nut FarmworkerField Representative 10/16/24 02/01/25 documented as of this encounter
--- OUTSIDE RECORDS SUMMARY | 2025-08-23 15:30 | XMS_ITS | Encounter Summary ---
Author Organization [employer] Address [address] [place] [address] [address] [place] [address] Care Team Providers Care Sole Rougher Name Role Phone Dana Pires NP Primary Care Provider [phone] Vinicio Dumont RN Unavailable [phone] Reason for Visit * Reason Comments Med Refill Encounter Details Date Type Department Care Team ([facility] st Contact Info) Description 01/29/2024 Refill [facility] MED[facility]INE [address] [place] [address] Dana Pires NP [address] [place] [address] Bipolar affective disorder, remission status unspecified (CMS/[facility]) Social History Tobacco Use Types Packs/Day Years [...] documented as of this encounter Care Teams Sole Rougher Relationship Specialty Start Date End Date Dana Pires NP [address] [place] [address] PCP - General Family Medicine 10/03/23 Vinicio Dumont RN [address] [place] [address] Director NewsSupervisor Slitting And Shipping 10/16/24 02/01/25 documented as of this encounter
--- OUTSIDE RECORDS SUMMARY | 2025-08-23 15:30 | XMS_ITS | Clinical Summary ---
Author Organization [employer] Address [address] [facility] 7 [place] [address] Care Team Providers Care Senior Staff Consultant Name Role Phone Dana Pires NP Primary Care Provider [phone] Allergies No known active allergies Medications * [...] IF NEEDED FOR WHEEZING. 18 g 5 10/06/20 24 Active Blood Pressure kitIndications:E levated blood pressure reading 1 each 2 times daily. 1 kit 10/24/20 24 2024 Active fluticasone (Flonase) 50 MCG/ACT nasal sprayIndications :Acute cough Administer 1 spray into each nostril Once per day. Shake gently. Before first use, prime pump. After use, clean tip and replace cap. 16 g 2 10/24/20 24 2024 Active amphetamine-dext roamphetamine XR (Adderall XR) 20 MG 24 hr capsuleIndicatio ns:Attention deficit hyperactivity disorder, predominantly inattentive type Take 1 capsule (20 mg) by mouth in the morning. TAKE 1 CAPSULE BY MOUTH EVERY MORNING. DO NOT CRUSH OR CHEW. 28 capsule 04/14/20 25 Active QUEtiapine (SEROquel) 50 MG tabletIndication s:Schizoaffectiv e disorder, bipolar type (CMS/HCC) (HCC) Take 1 tablet (50 mg) by mouth at bedtime. 30 tablet 1 04/14/20 25 Active traZODone (Desyrel) 150 MG tabletIndication s:Sleep disorder Take 1 tablet (150 mg) by mouth at bedtime. 30 tablet 1 04/14/20 25 Active hydrOXYzine pamoate (Vistaril) 25 MG capsuleIndicatio ns:DANNY (generalized anxiety disorder) TAKE 1 CAPSULE BY MOUTH EVERY MORNING AND 3 CAPSULES EVERY NIGHT AT BEDTIME 120 capsule 08/18/20 25 Active buPROPion XL (Wellbutrin XL) 300 MG 24 hr tabletIndication s:Severe major depression with psychotic features (CMS/HCC) (HCC) Take 1 tablet (300 mg) by mouth Once per day. 30 tablet 1 08/18/20 25 2024 Active buPROPion XL (Wellbutrin XL) 300 MG 24 hr tabletIndication s:Severe major depression with psychotic features (CMS/HCC) (HCC) Take 1 tablet (300 mg) by mouth Once per day. 30 tablet 1 04/14/20 25 2024 Discontinued(R eorder (will not trigger notification to Pharmacy)) hydrOXYzine pamoate (Vistaril) 25 MG capsuleIndicatio ns:DANNY (generalized anxiety disorder) TAKE 1 CAPSULE BY MOUTH EVERY MORNING AND 3 CAPSULES EVERY NIGHT AT BEDTIME 120 capsule 06/10/20 25 2024 Discontinued(R eorder (will not trigger notification to Pharmacy)) Active Problems Problem Noted Date Diagnosed Date [...] activity Severe major depression with psychotic features (CMS/HCC) 08/18/2024 Assessment & Plan (06/25/2025 1:55 PM [...] the process of getting Psych provider with [facility] just needs to complete intake, once patient [...] with his uncle. He was referred to [facility] for OP therapy and psychiatry services. Currently on medication (reports improvement). PCP is managing medication but due to symptom's severity psychiatry services are needed and recommended. Pt reports he completed the intake forms but still waiting for services. clinician engaged patient with active/reflective listening. Reviewed and assessed for risk, current stressors and protective factors using open-ended questions. Provided information for [facility] crisis line and [facility] help line. Subclinical hyperthyroidism 10/03/2023 [...] 10:52 AM EST): -flu shot obtained at [facility] -has not received dental care in 4 years -has not had eye exam in several years -referral for dental and vision services placed Schizoaffective disorder, bipolar type ([facility]/HCC) 05/28/2020 10/02/2023 Assessment & Plan (03/12/2025 11:27 AM [...] Posttraumatic stress disorder 05/28/2020 Paranoid personality disorder (CMS/HCC) 05/28/2010/02/2023 Psychoactive substance use disorder 05/28/2020 10/02/2023 Assessment [...] organization. Date Type Department Care Team Description 08/17/2025 Refill [facility] [address] [place] [address] Dana Pires NP DANNY (generalized anxiety disorder); Severe major depression with psychotic features (CMS/HCC) ([facility]) 08/13/2025 Telephone [facility] [address] [place] [address] Dana Pires NP 08/12/2025 Patient Outreach [facility] [address] [place] [phone] Dana Pires NP Transition Of Care (Tcm) (HDF unscheduled ) 06/25/2025 11:30 AM EDT Office Visit [facility] [address] [place] [phone] Dana Pires NP Attention deficit hyperactivity disorder, predominantly inattentive type (Primary Dx); Elevated CK; Psychoactive substance use disorder; High risk homosexual behavior; Severe major depression with psychotic features ([facility]) 06/25/2025 Travel 06/25/2025 Telephone [facility] [address] [place] [phone] Mendy Faustin RN 06/24/2025 Telephone [facility] [address] [place] [phone] Brigette Torres MA Chart Prep 06/20/2025 Travel 06/20/2025 Telephone [facility] [address] [place] [phone] Dana Pires NP 06/17/2025 Telephone [facility] [address] [place] [phone] Latesha Mcclure MA CHARTPREP 06/10/2025 Refill [facility] [address] [place] [address] Dana Pires NP DANNY (generalized anxiety disorder) [...] 10/24/2025 10/24/2024 Depression Screening 12/24/2025 12/24/2024, 12/24/19 25 Disability Screening 06/25/2026 06/25/2025 Tobacco Screening 06/25/2026 06/25/2025 DTaP/Tdap/Td Vaccines (3 - Td or Tdap) 12/08/2031 12/08/2021, 11/14/2016 Zoster Vaccines (1 of 2) 2047 RSV Patients and Patients Aged 60 years or older (1 - 1-dose 75+ series) 2072 Meningococcal Vaccine Aged Out 09/12/2012 No amanda bea eligible based on patient's age to complete this topic HPV Vaccines Completed 06/11/2015, 03/3 11/2014, 12/10/2014 Hepatitis A Vaccines Completed 12/08/2021, 06/11/2015, [...] HEPATITIS C ANTIBODY NON-REACT CHRIS NON-REACT CHRIS [facility] INDEX 0.13 <1.00 [facility] Comment: HCV antibody was non-reactive. There is no laboratory evidence of HCV infection. In most cases, no further action is required. However, if recent HCV exposure is suspected, a test for HCV RNA (test code 96029) is suggested. For additional information please refer to http://education.SCHEDit/faq/OCA69f6 (This link is being provided for informational/ educational purposes only.) 06/21/2022 11:4 1 AM EDT us Jocelyn Toshia DIRECTOR OF ADULT EPILEPSY HISTORICAL/NON ORDERABLE LABS Final Result Performing Organization Address [facility] de Phone Number [facility] [address] * HIV 1/2 ANTIGEN/ANTIBODY,FOURTH GENERATION W/RFL (06/21/2022 11:41 AM EDT) HIV-1/2 ANTIGEN AND ANTIBODIES, 4TH GENERATION W/ REFLEX NON-REACT CHRIS NON-REACT CHRIS [facility] Comment: HIV-1 antigen and HIV-1/HIV-2 [...] purpose. For additional information please refer to http://education.SCHEDit/faq/EKE356 (This link is being provided for informational/ educational purposes only.) The performance of this assay has not been clinically validated in patients less than 2 years old. 06/21/2022 11:4 1 AM EDT Jocelyn Toshia DIRECTOR OF ADULT EPILEPSY LAB BLOOD ORDERABLES Final Res ult Performing Organization Address [facility] de Phone Number [facility] [address] from Last 3 Months or Most Recently Relevant to Health Maintenance Insurance [facility] C[facility] Care Teams Senior Staff Consultant Relationship Specialty Start Date End Date Dana Pires NP [address] [place] [phone] PCP - General Family Medicine 10/03/23
--- OUTSIDE RECORDS SUMMARY | 2025-08-23 15:31 | XMS_ITS | Encounter Summary ---
Author Organization [employer] Address [address] [place] [address] [address] [place] [address] Care Team Providers Care Chairperson Anesthesiology Name Role Phone Dana Pires DENTAL SALES REPRESENTATIVE Primary Care Provider [phone] Vinicio Dumont RN Unavailable [phone] Reason for Visit * Reason Onset Date Comments New Patient 08/28/2023 Encounter Details Date Type Department Care Team ([facility] st Contact Info) Description 08/28/2023 Telephone [facility] [address] [place] [address] David Rodriguez MD [address] [place] [address] New Patient Social History Tobacco Use Types [...] PAR Zohaib Marroquin called pt to Offer DENTAL SALES REPRESENTATIVE appt. Pt demographics and insurance information were verified. Pt states following medical conditions: YES Pt reports taking medications: YES ( will bring onday of appt ) Pt given DENTAL SALES REPRESENTATIVE appt with DENTAL SALES REPRESENTATIVE Dana Pires on 10/03/2023 @ 9:00 am. Pt will be sent appt reminder card and medical release form and agrees to complete and to return to medical records priorto DENTAL SALES REPRESENTATIVE appt. documented in this encounter Plan of Treatment Not on file documented as of this encounter Visit Diagnoses Not on filedocumented in this encounter Care Teams Chairperson Anesthesiology Relationship Specialty Start Date End Date Dana Pires NP [address] [place] [phone] PCP - General Family Medicine 10/03/23 Vinicio Dumont RN [address] [place] [phone] Hand Brim IronerTyre Builder 10/16/24 02/01/25 documented as of this encounter
--- OUTSIDE RECORDS SUMMARY | 2025-08-23 15:31 | XMS_ITS | Clinical Summary ---
Author Organization [facility] Address [address] [place] [address] Care Team Providers Care Dungeon Master Name Role Phone Unavailable Primary Care Provider [...] patient's age to complete this topic Insurance [facility] Advance Directives * Full Code (Latest Code Status on File) Date Activated Date Inactivated Comments 04/17/2025 8:44 AM
[2025-08-23 15:36] VITALS: BP 130/70; PULSE 88; RESP 18; TEMP 37.1; O2SAT 100
[2025-08-23 15:53] LABS: MANUAL DIFF FLAG NO
--- NOTE | 2025-08-23 15:55 | PC.NURSE ---
PTs mother Nicolasa called [phone], she states she is staying in [place] and has cameras set up in the home to watch him. She states he has not been taking his medications for a few weeks, possibly doing Mushrooms or other drugs with friends, she has noticed his behavior change as it has in the past. Pt is currently calm and cooperative, he self dialogues and responds to internal stimuli, he laughs inappropriately, and has bizarre topics to his conversations. he is cooperative with obtaining labs, EKG and urine. He wanders the unit and talks with staff and peers. He denies SI/HI/VH He does state he hears voices that never stop, they tell him the bad things, the stuff that is going on in the past, and you know
[2025-08-23 15:56] LABS: Hematocrit 44.7 % (42.0-52.0); Hemoglobin 15.1 g/dl (14.0-18.0); Imm Gran Abs Auto 0.03 X10*3/uL (0.00-0.03); Imm Gran Pct Auto 0.4 % (0.0-0.4); Lymphocytes Absolute Auto 2.3 X10*3/uL (1.2-4.9); Mean Corpuscular HGB Conc 33.8 g/dl (31.0-36.0); Mean Corpuscular Hemoglobin 26.7 pg (27.0-33.0); Mean Corpuscular Volume 79.1 fL (80.0-98.0); NRBC Abs Auto 0.000 X10*3/uL (0.0-0.012); NRBC Pct Auto 0.0 /100WBC (0.0-0.2); Platelet Count 211 X10*3/uL (160-400); Red Blood Count 5.65 X10*6/uL (4.60-5.80); White Blood Count 8.0 X10*3/uL (4.8-10.8)
[2025-08-23 15:59] LABS: Appearance Urine Clear; Glucose Urine UA Negative (Negative); PH 7.5 (5.0-9.0); Specific Gravity - Urine 1.015 (1.005-1.025)
[2025-08-23 16:08] LABS: Cannabinoid Screen Urine POSITIVE (Not Detect)
[2025-08-23 16:13] LABS: Acetaminophen LAB < 3 mcg/mL (<30); Salicylate < 5.0 mg/dL (15-30)
[2025-08-23 16:14] LABS: COVID-19 Test Negative (Negative); IDNOW Serial# 55D5AD1C
[2025-08-23 16:19] LABS: Alanine Aminotransferase 13 U/L (0-40); Albumin Level 4.6 g/dL (3.5-5.0); Alkaline Phosphatase 77 U/L (39-117); Anion Gap 10 (12-20); Aspartate Amino Transferase 19 U/L (5-37); Blood Urea Nitrogen 11 mg/dL (9-16); Calcium 9.1 mg/dL (8.4-10.2); Carbon Dioxide 28 mmol/L (22-29); Chloride 106 mmol/L (96-108); Creatinine Clr Calc Pharmacy 140.4; Estimated Glomerular Filt Rate > 60; Potassium 4.0 mmol/L (3.3-5.1); Sodium 140 mmol/L (135-145); Total Protein 7.4 g/dL (6.5-8.0)
[2025-08-23] MEDS: OLANZapine ODT 10 MG TAB.RAPDIS TRANSLINGU (18:40)
[2025-08-24 04:08] VITALS: BP 121/74; PULSE 83; RESP 16; TEMP 36.6; O2SAT 99
--- NOTE | 2025-08-24 07:37 | PC.NURSE ---
Assumed care, report received. Pt is awake, he is calm and cooperative. He has nonsensical conversation, he is responding to internal stimuli and gets angry at times. He is easily redirected. He is compliant with medications. He denies SI/HI, he admits to AH/
--- NOTE | 2025-08-24 08:23 | PHA.MEDREC ---
Pharmacy Consult ? Medication Reconciliation Pharmacy has completed the medication reconciliation. Spoke with patient who was able to confirm his medications. He did state that he hasn't taken any of his medications in a long time . Claims shown are out of date.
[2025-08-24] MEDS: buPROPion HCl XL 300 MG TAB.ER.24H PO (08:28)
[2025-08-24 14:22] VITALS: BP 150/89; PULSE 102; RESP 18; TEMP 36.5; O2SAT 98
[2025-08-24 20:26] VITALS: BP 143/81; PULSE 88; RESP 18; TEMP 37.1; O2SAT 98
--- NOTE | 2025-08-25 04:19 | PC.NURSE ---
pt continuously pacing throughout milieu requesting snacks/drinks. pt provided w/ personal requests. pt then noted to go to the restroom multiple times in a row - pacing faster each time. pt then noted to head towards another patient's room. pt notified/aware that he was unable to enter d/t that not being his space. pt became increasingly agitated/staring at staff/making remarks. pt then seemed to be responding to internal stimuli - stating that people are saying things to him that are not true. security eventually called to assist in deescalation. pt now resting in room watching tv. plan of care ongoing.
[2025-08-25 06:00] VITALS: RESP 14
--- NOTE | 2025-08-25 09:00 | PC.NURSE ---
pt currently appears asleep - resting in no apparent distress. no sob/wob noted. respirations even/unlabored. pending inpatient bed search. plan of care ongoing.
--- NOTE | 2025-08-25 12:51 | PC.NURSE ---
report given to Rick Lopez RN on [facility] at this time.
[2025-08-25] MEDS: buPROPion HCl XL 300 MG TAB.ER.24H PO (12:55)
[2025-08-25 16:58] VITALS: BP 142/83; PULSE 96; RESP 16; TEMP 37.1; O2SAT 97
[2025-08-25 16:59] VITALS: BMI 31.5
--- NOTE | 2025-08-25 18:17 | PC.ADMIT ---
Pt is a 29 y/o mosotho speaking male admitted from the pod on a CV with a dx of Unspecified psychosis. Pts mother reports pt stopped taking medications after discharge from [facility] on 08/13/25. Pt was acting erratic, responding to internal stimuli, and reporting AVH. Pts sleep has been poor with pt not sleeping for days at a time. Pt reported in the ED that he has been drinking daily and taking mushrooms up to a week ago. Pt is A&O x3, his thoughts are disorganized with flight of ideas and he is easily distracted. Pt is paranoid, reporting ?I feel like people are always watching me.? Pt says, ?I placed a large TV sideways in my window because I know my neighbor is watching and recording me.?Pt reports AH, stating, ?I hear electricity?, he denies VH. Pt appeared to have some thought blocking with long pauses at times during the assessment. Pt denies SI/HI with no plan to harm self or others, pt has a history of suicide attempts in the past. Pt admits he wasn?t medication compliant since leaving the recent hospitalization. Pt denied anxiety, but was restless with rapid leg shaking. He reports a good appetite with disrupted sleep, frequent awakening. Pts tox screen was only positive for THC, pt reports using ETOH and mushrooms a week ago. Pt has no acute medical concerns with a hx of asthma. Pt placed on 15 minute safety checks
[2025-08-25 20:00] VITALS: BP 178/79; PULSE 106; RESP 17; TEMP 37.6; O2SAT 98
[2025-08-26 07:45] VITALS: BP 131/80; PULSE 98; RESP 20; TEMP 36.3; O2SAT 99
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
--- NOTE | 2025-08-26 08:35 | HO.PSYADMNOT ---
HPI Date of Service: 08/26/25 Chief Complaint: Crisis Sources of Information: patient interviewed, chart reviewed and crisis/core team assessment reviewed HPI Subjective Notes: [place] Warning and Conditional Voluntary Narrative: Patient is a 29-year-old male with history of bipolar disorder, PTSD, cocaine use d/o, methamphetamine use d/o, who presented to ER via ambulance due to bizarre behavior at home and his family calling 911. Per crisis report, patient presented to ER via ambulance secondary to his family calling 911 as patient was behaving erratically and not taking his medications since returning home from inpatient hospitalization. Patient was discharged from on 08/13/2025. Patient appeared to be responding to internal stimuli and thought blocking. He reported auditory and visual hallucinations and struggled to engage fully with assessment. Patient would answer questions and had periods of inappropriate laughter. He reports poor sleep. Patient stated he took mushrooms about a week ago and has been smoking marijuana and drinking rum daily since getting discharged. Patient did not report any suicidal or homicidal ideation. History of multiple inpatient psychiatric hospitalizations. Denies any history of SA/SIB. History of cocaine, crystal meth, mushrooms, marijuana and alcohol use. Utox positive for marijuana. During admission assessment, patient presents alert and oriented x3. Calm and cooperative. Patient reports that he was not taking his home medications due to not having anyone to take him to the pharmacy . Patient stated, I was sniffing Wellbutrin to make a replacement from cocaine. I haven't been smoking meth for 2 weeks. I took 3-4 mushrooms before I got here and have been smoking marijuana . Patient reports he would like to be restarted on his medications. Patient stated, I'll try my best to remember to take my meds. I understand taking the olanzapine can make a difference. I do want to heal . Patient reports auditory hallucinations all the time ; when asked to elaborate, patient stated, I hear things that I need to be aware of . He denies SI/HI/VH. Past Psychiatric History: History of multiple inpatient psychiatric hospitalizations. Therapist via telehealth. Patient reports he does not have outpatient prescriber. Past medication trials: risperidone, depakote, clonidine Medical Evaluation Reviewed: Yes [facility] Medical History (Updated 08/26/25 @ 13:29 by Sagrario Coronado NP) Acute psychosis Asthma Bipolar 1 disorder Surgical History No significant past surgical history Family History: unknown Social History: No children. He completed college level classes. Substance History: History of cocaine, crystal meth, mushrooms, marijuana and alcohol use. Utox positive for marijuana. Trauma History: yes Diagnostics Vital Signs (24Hr): Vital Signs - 24 hr 08/25/25 16:58 08/25/25 20:00 08/26/25 07:45 Temperature 98.7 F 99.6 F 97.4 F Pulse Rate 96 106 H 98 Respiratory Rate 16 17 20 Blood Pressure 142/83 H 178/79 H 131/80 Pulse Oximetry 97 98 99 Oxygen Delivery Method Room Air Room Air Room Air BMI result Body Mass Index 31.5 Labs 08/23/25 15:37 08/26/25 07:46 Meds/Allergies Meds Home Medications ?Medication ?Instructions ?Recorded ?Confirmed ?Type bupropion HCl 300 mg 24 hr tablet, 300 mg PO DAILY 08/23/25 08/23/25 History extended release cholecalciferol (vitamin D3) 50 50 mcg PO DAILY 08/24/25 08/24/25 History mcg (2,000 unit) tablet (Vitamin D3) dextroamphetamine-amphetamine ER 1 cap PO QAM 08/24/25 08/24/25 History 20 mg 24hr capsule,extend release (Adderall XR) ferrous fumarate 324 mg (106 mg 324 mg PO DAILY 08/24/25 08/24/25 History iron) tablet Allergies Allergies Allergy/AdvReac Type Severity Reaction Status Date / Time No Known Allergies Allergy Verified 08/23/25 15:24 Mental Status Exam Mental Status Exam Narrative: Pt is alert and oriented; behavior is cooperative and calm; dressed in casual attire; mood is described as good ; eye contact appropriate; Speech is normal rate, volume and not pressured; thought process is organized; Thought content is on tx; denies SI/HI/VH. +AH. Assessment & Plan Assessment & Plan (1) Bipolar disorder: Status: Acute Code(s): F31.9 - Bipolar disorder, unspecified (2) PTSD (post-traumatic stress disorder): Status: Acute Code(s): F43.10 - Post-traumatic stress disorder, unspecified (3) Cocaine use disorder: Status: Acute Code(s): F14.10 - Cocaine abuse, uncomplicated (4) Methamphetamine abuse: Status: Acute Code(s): F15.10 - Other stimulant abuse, uncomplicated Plan Patient is a 29-year-old male with history of bipolar disorder, PTSD, cocaine use d/o, methamphetamine use d/o, who presented to ER via ambulance due to bizarre behavior at home and his family calling 911. Plan: CV 15 minute safety checks Continue home medications Decrease Wellbutrin XL to 150mg PO daily with plan to taper off Obtain collateral Encourage groups Encourage medication compliance ? Referral to substance abuse program Discharge planning Patient educated on: diagnosis and medication risk/benefits Reason for continued inpatient stay Substantial Risk for: med/psych decompensation Statement Statement: I have reviewed the history and physical and performed a pertinent examination on my patient. No changes have occurred unless specified. If the History and Physical was not performed prior to admission, the Hospitalist's service will be consulted for completing the admission physical. Time Spent With Patient Time: Total time managing care of this patient today _60___ minutes.
[2025-08-26 08:37] LABS: Hemoglobin A1C 103.7270 umol/L; Total Hemoglobin (HGBA1C) 3767.9491 umol/L
[2025-08-26] MEDS: Ferrous Sulfate 324 MG TABLET.DR PO (08:58)
[2025-08-26] MEDS: buPROPion HCl XL 300 MG TAB.ER.24H PO (08:59)
[2025-08-26 09:04] LABS: Alanine Aminotransferase 25 U/L (0-40); Albumin Level 4.4 g/dL (3.5-5.0); Alkaline Phosphatase 92 U/L (39-117); Anion Gap 10 (12-20); Aspartate Amino Transferase 18 U/L (5-37); Blood Urea Nitrogen 15 mg/dL (9-16); Calcium 9.1 mg/dL (8.4-10.2); Carbon Dioxide 26 mmol/L (22-29); Chloride 108 mmol/L (96-108); Cholesterol 102 mg/dL (<200); Creatinine Clr Calc Pharmacy 144.6; Estimated Glomerular Filt Rate > 60; HDL Cholesterol 45 mg/dL (>40); Potassium 4.1 mmol/L (3.3-5.1); Sodium 140 mmol/L (135-145); Total Protein 7.3 g/dL (6.5-8.0); Triglycerides 127 mg/dL (<150)
[2025-08-27 04:15] LABS: Syphilis Screen Nonreactive (Nonreactive)
[2025-08-27 04:52] LABS: HBS Num1 > 1000.00 mIU/mL (0-7.99); HBc Num1 0.32 S/CO (0.00-0.79); HBsAGNum1 0.44 S/CO (0.00-0.99); HIV Num 1 0.07 S/CO (0.00-0.99); Hepatitis A Antibody IgM 0.24 Index (0-0.79); Hepatitis B Surface Antigen Negative (Negative); ~HepC Num1 0.09 S/CO (0.00-0.79); ~Hepatitis A Antibody IgM Nonreactive (Nonreactive); ~Hepatitis B Surface Antibody REACTIVE (Nonreactive); ~Hepatitis C Antibody Nonreactive (Nonreactive)
[2025-08-27 07:00] VITALS: BMI 31.7
[2025-08-27 07:40] VITALS: BP 128/60; PULSE 78; RESP 16; TEMP 36.6; O2SAT 99
[2025-08-27] MEDS: Ferrous Sulfate 324 MG TABLET.DR PO (08:27)
[2025-08-27] MEDS: buPROPion HCl XL 150 MG TAB.ER.24H PO (08:27)
--- NOTE | 2025-08-27 09:40 | PM.EVENT ---
Event Note Date of Service: 08/27/25 Event Note: Reviewed patient's STD testing, negative for HIV, syphilis, previous exposure to hepatitis-B no active infection. Patient made aware Time Spent With Patient Time: Total time managing care of this patient today ____ minutes.
--- NOTE | 2025-08-27 09:51 | HO.PSYCHPN ---
Subjective Subjective Date of Service: 08/27/25 Reason For Visit: Crisis Subjective Notes: Conditional Voluntary Interim History: Active on unit. social with select peers. Patient reports he is starting to feel better ; pt stated, I'm not mouthing off like when I first got here. I'm trying to intervene less . He reports auditory hallucinations that are minimal . denies SI/HI/VH. He reports sleeping well last night. continue tx plan. Medication Compliance: Yes Side effects from medications: No Attending Groups: Yes Mental Status Exam Mental Status Exam Narrative: Pt is alert and oriented; behavior is cooperative and calm; dressed in casual attire; mood is described as good ; eye contact appropriate; Speech is normal rate, volume and not pressured; thought process is organized; Thought content is on tx; denies SI/HI/VH. +AH. Diagnostics Vital Signs (24Hr): Vital Signs - 24 hr 08/27/25 07:40 Temperature 97.8 F Pulse Rate 78 Respiratory Rate 16 Blood Pressure 128/60 Pulse Oximetry 99 Oxygen Delivery Method Room Air BMI result Body Mass Index 31.7 Labs 08/23/25 15:37 08/26/25 07:46 Labs: Laboratory Results - last 48 hr 08/26/25 08/26/25 07:46 15:16 Sodium 140 Potassium 4.1 Chloride 108 Carbon Dioxide 26 Anion Gap 10 L BUN 15 Creatinine 0.88 Estim Creat Clear Calc 144.6 Estimated GFR > 60 Random Glucose 112 Estimat Average Glucose 88 Hemoglobin A1c % 4.7 Calcium 9.1 Total Bilirubin 0.8 AST 18 ALT 25 Alkaline Phosphatase 92 Total Protein 7.3 Albumin 4.4 Triglycerides 127 Cholesterol 102 LDL Cholesterol, Calc 32 HDL Cholesterol 45 T.pallidum Ab (EIA) Nonreactive Hepatitis A IgM Ab Nonreactive Hep Bs Antigen Negative Hep Bs Antibody REACTIVE Hep B Core Total Ab Nonreactive Hepatitis C Ab (EIA) Nonreactive HIV 1&2 Ab/P24 Ag 4thGn Nonreactive Medications Medications Current Medications Acetaminophen (Acetaminophen 325 Mg Tablet) 650 mg PO Q6H PRN PRN Reason: Headache/Pain, Scale 1-10 Al Hydroxide/Mg Hydroxide (Magnesium Hydrox/Alum Hydrox 30 Ml Oral.Susp) 30 ml PO Q6H PRN PRN Reason: Heartburn/Nausea Albuterol Sulfate (Albuterol Sulfate 90 Mcg 8 Gm Inhaler) 2 puff INHALE RQ4H PRN PRN Reason: sob Bupropion HCl (Bupropion Hcl Xl 150 Mg Tab.Er.24h) 150 mg PO DAILY [facility] Last Admin: 08/27/25 08:27 Dose: 150 mg Ferrous Sulfate (Ferrous Sulfate 324 Mg Tablet.Dr) 324 mg PO DAILY [facility] Last Admin: 08/27/25 08:27 Dose: 324 mg Fluticasone Propionate (Fluticasone Propionate Nasal 16 Gm [place]) 1 spray NOSTRIL-B DAILY [facility] Last Admin: 08/27/25 08:41 Dose: 1 spray Hydroxyzine HCl (Hydroxyzine Hcl 25 Mg Tablet) 25 mg PO Q6H PRN PRN Reason: Anxiety Last Admin: 08/27/25 00:21 Dose: 25 mg Magnesium Hydroxide (Milk Of Magnesia 30 Ml Oral.Susp) 30 ml PO DAILY PRN PRN Reason: Constipation Nicotine Polacrilex (Nicotine Polacrilex 2 Mg Gum) 4 mg BUCCAL Q2H PRN PRN Reason: Nicotine Cravings Olanzapine (Olanzapine 10 Mg Tablet) 10 mg PO BEDTIME [facility] Last Admin: 08/26/25 19:58 Dose: 10 mg Olanzapine (Olanzapine 5 Mg Tablet) 5 mg PO Q4H PRN PRN Reason: agitation/psychosis Last Admin: 08/26/25 14:41 Dose: 5 mg Oxcarbazepine (Oxcarbazepine 300 Mg Tablet) 600 mg PO BID [facility] Last Admin: 08/27/25 08:27 Dose: 600 mg Sertraline HCl (Sertraline Hcl 100 Mg Tablet) 100 mg PO DAILY [facility] Last Admin: 08/27/25 08:27 Dose: 100 mg Trazodone HCl (Trazodone Hcl 50 Mg Tablet) 150 mg PO BEDTIME [facility] Last Admin: 08/26/25 19:57 Dose: 150 mg Vitamin D (Cholecalciferol (Vitamin D3) 25 Mcg Tablet) 50 mcg PO DAILY [facility] Last Admin: 08/27/25 08:27 Dose: 50 mcg Allergies Allergies Allergy/AdvReac Type Severity Reaction Status Date / Time No Known Allergies Allergy Verified 08/23/25 15:24 Assessment & Plan Assessment & Plan (1) Bipolar disorder: Status: Acute Code(s): F31.9 - Bipolar disorder, unspecified (2) PTSD (post-traumatic stress disorder): Status: Acute Code(s): F43.10 - Post-traumatic stress disorder, unspecified (3) Cocaine use disorder: Status: Acute Code(s): F14.10 - Cocaine abuse, uncomplicated (4) Methamphetamine abuse: Status: Acute Code(s): F15.10 - Other stimulant abuse, uncomplicated Plan Patient is a 29-year-old male with history of bipolar disorder, PTSD, cocaine use d/o, methamphetamine use d/o, who presented to ER via ambulance due to bizarre behavior at home and his family calling 911. Plan: CV 15 minute safety checks Continue home medications Decrease Wellbutrin XL to 150mg PO daily with plan to taper off Obtain collateral Encourage groups Encourage medication compliance ? Referral to substance abuse program Discharge planning 08/27: Active on unit. social with select peers. Patient reports he is starting to feel better ; pt stated, I'm not mouthing off like when I first got here. I'm trying to intervene less . He reports auditory hallucinations that are minimal . denies SI/HI/VH. He reports sleeping well last night. continue tx plan. Patient educated on: diagnosis and medication risk/benefits Reason for continued inpatient stay Substantial Risk for: med/psych decompensation Time Spent With Patient Time: Total time managing care of this patient today _20___ minutes.
[2025-08-27 19:27] VITALS: BP 143/77; PULSE 93; RESP 16; TEMP 36.9; O2SAT 98
[2025-08-27] MEDS: Clotrimazole 1 % Cream 15 GM TUBE 1 APPL TOPICAL (20:15)
[2025-08-28 08:00] VITALS: BP 109/58; PULSE 84; RESP 16; TEMP 36.6; O2SAT 98
--- NOTE | 2025-08-28 08:51 | P.PNPSI_ITS ---
Subjective Subjective Date of Service: 08/28/25 Reason For Visit: Crisis Subjective Notes: Conditional Voluntary Interim History: Active on unit. social with peers. Patient reports feeling pleasant today; pt reports he plans on being medication compliant when he returns home. Plan for discharge home Sunday; pt aware. denies SI/HI/VH/AH. continue tx plan. Medication Compliance: Yes Side effects from medications: No Attending Groups: Intermittent Mental Status Exam Mental Status Exam Narrative: Pt is alert and oriented; behavior is cooperative and calm; dressed in casual attire; mood is described as good ; eye contact appropriate; Speech is normal rate, volume and not pressured; thought process is organized; Thought content is on discharge; denies SI/HI/VH/AH. Diagnostics Vital Signs (24Hr): Vital Signs - 24 hr 08/27/25 19:27 Temperature 98.5 F Pulse Rate 93 Respiratory Rate 16 Blood Pressure 143/77 H Pulse Oximetry 98 Oxygen Delivery Method Room Air BMI result Body Mass Index 31.7 Labs 08/23/25 15:37 08/26/25 07:46 Labs: Laboratory Results - last 48 hr 08/26/25 08/26/25 07:46 15:16 Sodium 140 Potassium 4.1 Chloride 108 Carbon Dioxide 26 Anion Gap 10 L BUN 15 Creatinine 0.88 Estim Creat Clear Calc 144.6 Estimated GFR > 60 Random Glucose 112 Calcium 9.1 Total Bilirubin 0.8 AST 18 ALT 25 Alkaline Phosphatase 92 Total Protein 7.3 Albumin 4.4 Triglycerides 127 Cholesterol 102 LDL Cholesterol, Calc 32 HDL Cholesterol 45 T.pallidum Ab (EIA) Nonreactive Hepatitis A IgM Ab Nonreactive Hep Bs Antigen Negative Hep Bs Antibody REACTIVE Hep B Core Total Ab Nonreactive Hepatitis C Ab (EIA) Nonreactive HIV 1&2 Ab/P24 Ag 4thGn Nonreactive Medications Medications Current Medications Acetaminophen (Acetaminophen 325 Mg Tablet) 650 mg PO Q6H PRN PRN Reason: Headache/Pain, Scale 1-10 Last Admin: 08/27/25 20:15 Dose: 650 mg Al Hydroxide/Mg Hydroxide (Magnesium Hydrox/Alum Hydrox 30 Ml Oral.Susp) 30 ml PO Q6H PRN PRN Reason: Heartburn/Nausea Albuterol Sulfate (Albuterol Sulfate 90 Mcg 8 Gm Inhaler) 2 puff INHALE RQ4H PRN PRN Reason: sob Bupropion HCl (Bupropion Hcl Xl 150 Mg Tab.Er.24h) 150 mg PO DAILY [facility] Last Admin: 08/27/25 08:27 Dose: 150 mg Clotrimazole (Clotrimazole 1 % Cream 15 Gm Tube) 1 appl TOPICAL BID [facility]; Protocol Stop: 09/10/25 20:59 Last Admin: 08/27/25 20:15 Dose: 1 appl Ferrous Sulfate (Ferrous Sulfate 324 Mg Tablet.Dr) 324 mg PO DAILY [facility] Last Admin: 08/27/25 08:27 Dose: 324 mg Fluticasone Propionate (Fluticasone Propionate Nasal 16 Gm [place]) 1 spray NOSTRIL-B DAILY [facility] Last Admin: 08/27/25 08:41 Dose: 1 spray Hydroxyzine HCl (Hydroxyzine Hcl 25 Mg Tablet) 25 mg PO Q6H PRN PRN Reason: Anxiety Last Admin: 08/27/25 20:15 Dose: 25 mg Magnesium Hydroxide (Milk Of Magnesia 30 Ml Oral.Susp) 30 ml PO DAILY PRN PRN Reason: Constipation Nicotine Polacrilex (Nicotine Polacrilex 2 Mg Gum) 4 mg BUCCAL Q2H PRN PRN Reason: Nicotine Cravings Olanzapine (Olanzapine 10 Mg Tablet) 10 mg PO BEDTIME [facility] Last Admin: 08/27/25 20:15 Dose: 10 mg Olanzapine (Olanzapine 5 Mg Tablet) 5 mg PO Q4H PRN PRN Reason: agitation/psychosis Last Admin: 08/28/25 02:22 Dose: 5 mg Oxcarbazepine (Oxcarbazepine 300 Mg Tablet) 600 mg PO BID [facility] Last Admin: 08/27/25 20:15 Dose: 600 mg Sertraline HCl (Sertraline Hcl 100 Mg Tablet) 100 mg PO DAILY [facility] Last Admin: 08/27/25 08:27 Dose: 100 mg Trazodone HCl (Trazodone Hcl 50 Mg Tablet) 150 mg PO BEDTIME [facility] Last Admin: 08/27/25 20:15 Dose: 150 mg Vitamin D (Cholecalciferol (Vitamin D3) 25 Mcg Tablet) 50 mcg PO DAILY [facility] Last Admin: 08/27/25 08:27 Dose: 50 mcg Allergies Allergies Allergy/AdvReac Type Severity Reaction Status Date / Time No Known Allergies Allergy Verified 08/23/25 15:24 Assessment & Plan Assessment & Plan (1) Bipolar disorder: Status: Acute Code(s): F31.9 - Bipolar disorder, unspecified (2) PTSD (post-traumatic stress disorder): Status: Acute Code(s): F43.10 - Post-traumatic stress disorder, unspecified (3) Cocaine use disorder: Status: Acute Code(s): F14.10 - Cocaine abuse, uncomplicated (4) Methamphetamine abuse: Status: Acute Code(s): F15.10 - Other stimulant abuse, uncomplicated Plan Patient is a 29-year-old male with history of bipolar disorder, PTSD, cocaine use d/o, methamphetamine use d/o, who presented to ER via ambulance due to bizarre behavior at home and his family calling 911. Plan: CV 15 minute safety checks Continue home medications Decrease Wellbutrin XL to 150mg PO daily with plan to taper off Obtain collateral Encourage groups Encourage medication compliance ? Referral to substance abuse program Discharge planning 08/27: Active on unit. social with select peers. Patient reports he is starting to feel better ; pt stated, I'm not mouthing off like when I first got here. I'm trying to intervene less . He reports auditory hallucinations that are minimal . denies SI/HI/VH. He reports sleeping well last night. continue tx plan. 08/28: Active on unit. social with peers. Patient reports feeling pleasant today; pt reports he plans on being medication compliant when he returns home. Plan for discharge home Sunday; pt aware. denies SI/HI/VH/AH. continue tx plan. Patient educated on: diagnosis and medication risk/benefits Reason for continued inpatient stay Substantial Risk for: med/psych decompensation Time Spent With Patient Time: Total time managing care of this patient today _20___ minutes.
[2025-08-28] MEDS: Clotrimazole 1 % Cream 15 GM TUBE 1 APPL TOPICAL ×2 (09:00→20:51)
[2025-08-28] MEDS: Ferrous Sulfate 324 MG TABLET.DR PO (09:02)
[2025-08-28] MEDS: buPROPion HCl XL 150 MG TAB.ER.24H PO (09:03)
--- NOTE | 2025-08-28 11:38 | PC.NURSE ---
Staff reported that he observed and overheard this patient amd his female peer discussing getting together upon discharge. This patient has also been observed begining to follow said female peer.
[2025-08-28 19:35] VITALS: BP 136/83; PULSE 104; RESP 16; TEMP 36.7; O2SAT 98
[2025-08-28] MEDS: Albuterol Sulfate 90 MCG 8 GM INHALER 2 PUFF INHALE (21:21)
[2025-08-29 07:34] VITALS: BP 136/82; PULSE 85; RESP 20; TEMP 36.5; O2SAT 99
[2025-08-29] MEDS: buPROPion HCl XL 150 MG TAB.ER.24H PO (08:37)
[2025-08-29] MEDS: Ferrous Sulfate 324 MG TABLET.DR PO (08:37)
[2025-08-29] MEDS: Clotrimazole 1 % Cream 15 GM TUBE 1 APPL TOPICAL ×2 (08:38→22:04)
--- NOTE | 2025-08-29 10:05 | P.PNPSI_ITS ---
Subjective Subjective Date of Service: 08/29/25 Reason For Visit: Crisis Interim History: Active on unit. social with peers. Patient reports he feels not too bad . Medications are helpful. Sleep is OK. Pt reports he plans on being medication compliant when he returns home. Plan for discharge home Sunday; pt aware. denies SI/HI/VH/AH. continue tx plan. Review of Systems Review of Systems Denies any shortness of breath, chest pain, palpitations, dizziness, lightheadedness, headaches, dysuria, abdominal pain or discomfort, nausea, vomiting or diarrhea. Denies chills, body aches, muscle aches, fatigue or weight loss. Yes all other systems are reviewed and are negative Constitutional: Reports as per [facility] Mental Status Exam Mental Status Exam Narrative: Pt is alert and oriented; behavior is cooperative and calm; dressed in casual attire; mood is described as good ; eye contact appropriate; Speech is normal rate, volume and not pressured; thought process is organized; Thought content is on discharge; denies SI/HI/VH/AH. Diagnostics Vital Signs (24Hr): Vital Signs - 24 hr 08/28/25 19:35 08/29/25 07:34 Temperature 98.1 F 97.7 F Pulse Rate 104 H 85 Respiratory Rate 16 20 Blood Pressure 136/83 136/82 Pulse Oximetry 98 99 Oxygen Delivery Method Room Air Room Air BMI result Body Mass Index 31.7 Labs 08/23/25 15:37 08/26/25 07:46 Medications Medications Current Medications Acetaminophen (Acetaminophen 325 Mg Tablet) 650 mg PO Q6H PRN PRN Reason: Headache/Pain, Scale 1-10 Last Admin: 08/27/25 20:15 Dose: 650 mg Al Hydroxide/Mg Hydroxide (Magnesium Hydrox/Alum Hydrox 30 Ml Oral.Susp) 30 ml PO Q6H PRN PRN Reason: Heartburn/Nausea Albuterol Sulfate (Albuterol Sulfate 90 Mcg 8 Gm Inhaler) 2 puff INHALE RQ4H PRN PRN Reason: sob Last Admin: 08/28/25 21:21 Dose: 2 puff Bupropion HCl (Bupropion Hcl Xl 150 Mg Tab.Er.24h) 150 mg PO DAILY [facility] Last Admin: 08/29/25 08:37 Dose: 150 mg Clotrimazole (Clotrimazole 1 % Cream 15 Gm Tube) 1 appl TOPICAL BID [facility]; Protocol Stop: 09/10/25 20:59 Last Admin: 08/29/25 08:38 Dose: 1 appl Ferrous Sulfate (Ferrous Sulfate 324 Mg Tablet.Dr) 324 mg PO DAILY [facility] Last Admin: 08/29/25 08:37 Dose: 324 mg Fluticasone Propionate (Fluticasone Propionate Nasal 16 Gm [place]) 1 spray NOSTRIL-B DAILY [facility] Last Admin: 08/29/25 08:37 Dose: 1 spray Hydroxyzine HCl (Hydroxyzine Hcl 25 Mg Tablet) 25 mg PO Q6H PRN PRN Reason: Anxiety Last Admin: 08/28/25 11:59 Dose: 25 mg Magnesium Hydroxide (Milk Of Magnesia 30 Ml Oral.Susp) 30 ml PO DAILY PRN PRN Reason: Constipation Nicotine Polacrilex (Nicotine Polacrilex 2 Mg Gum) 4 mg BUCCAL Q2H PRN PRN Reason: Nicotine Cravings Olanzapine (Olanzapine 10 Mg Tablet) 10 mg PO BEDTIME [facility] Last Admin: 08/28/25 20:53 Dose: 10 mg Olanzapine (Olanzapine 5 Mg Tablet) 5 mg PO Q4H PRN PRN Reason: agitation/psychosis Last Admin: 08/28/25 11:59 Dose: 5 mg Oxcarbazepine (Oxcarbazepine 300 Mg Tablet) 600 mg PO BID [facility] Last Admin: 08/29/25 08:38 Dose: 600 mg Sertraline HCl (Sertraline Hcl 100 Mg Tablet) 100 mg PO DAILY [facility] Last Admin: 08/29/25 08:38 Dose: 100 mg Trazodone HCl (Trazodone Hcl 50 Mg Tablet) 150 mg PO BEDTIME [facility] Last Admin: 08/28/25 20:53 Dose: 150 mg Vitamin D (Cholecalciferol (Vitamin D3) 25 Mcg Tablet) 50 mcg PO DAILY [facility] Last Admin: 08/29/25 08:37 Dose: 50 mcg Allergies Allergies Allergy/AdvReac Type Severity Reaction Status Date / Time No Known Allergies Allergy Verified 08/23/25 15:24 Assessment & Plan Assessment & Plan (1) Bipolar disorder: Status: Acute Code(s): F31.9 - Bipolar disorder, unspecified (2) PTSD (post-traumatic stress disorder): Status: Acute Code(s): F43.10 - Post-traumatic stress disorder, unspecified (3) Cocaine use disorder: Status: Acute Code(s): F14.10 - Cocaine abuse, uncomplicated (4) Methamphetamine abuse: Status: Acute Code(s): F15.10 - Other stimulant abuse, uncomplicated Plan Patient is a 29-year-old male with history of bipolar disorder, PTSD, cocaine use d/o, methamphetamine use d/o, who presented to ER via ambulance due to bizarre behavior at home and his family calling 911. Plan: CV 15 minute safety checks Continue home medications Decrease Wellbutrin XL to 150mg PO daily with plan to taper off Obtain collateral Encourage groups Encourage medication compliance ? Referral to substance abuse program Discharge planning 08/27: Active on unit. social with select peers. Patient reports he is starting to feel better ; pt stated, I'm not mouthing off like when I first got here. I'm trying to intervene less . He reports auditory hallucinations that are minimal . denies SI/HI/VH. He reports sleeping well last night. continue tx plan. 08/28: Active on unit. social with peers. Patient reports feeling pleasant today; pt reports he plans on being medication compliant when he returns home. Plan for discharge home Sunday; pt aware. denies SI/HI/VH/AH. continue tx plan. 08/29: continue current management and treatment plan. Reason for continued inpatient stay Substantial Risk for: inability to function and rapid decompensation Time Spent With Patient Time: Total time managing care of this patient today ____ minutes.
[2025-08-29 20:00] VITALS: BP 122/74; PULSE 93; RESP 17; TEMP 36.3; O2SAT 98
[2025-08-30 07:58] VITALS: BP 130/77; PULSE 82; RESP 16; TEMP 36.2; O2SAT 99
--- NOTE | 2025-08-30 09:35 | HO.PSYCHPN ---
Subjective Subjective Date of Service: 08/30/25 Reason For Visit: Crisis Interim History: Active on unit. social with peers. Doing well. ASking about his medications. Educated about stimulants and cannabis effects on bipolar and schizoaffective disorders. Current medications are helpful. Sleep is OK. Pt reports he plans on being medication compliant when he returns home. Plan for discharge home Sunday but patient says his mom can pick him up Sunday. Will defer to team DC timing. Denies SI/HI/VH/AH. continue tx plan. Review of Systems Review of Systems Denies any shortness of breath, chest pain, palpitations, dizziness, lightheadedness, headaches, dysuria, abdominal pain or discomfort, nausea, vomiting or diarrhea. Denies chills, body aches, muscle aches, fatigue or weight loss. Yes all other systems are reviewed and are negative Constitutional: Reports as per [facility] Mental Status Exam Mental Status Exam Narrative: Pt is alert and oriented; behavior is cooperative and calm; dressed in casual attire; mood is described as good ; eye contact appropriate; Speech is normal rate, volume and not pressured; thought process is organized; Thought content is on discharge; denies SI/HI/VH/AH. Diagnostics Vital Signs (24Hr): Vital Signs - 24 hr 08/29/25 20:00 08/30/25 07:58 Temperature 97.3 F 97.2 F Pulse Rate 93 82 Respiratory Rate 17 16 Blood Pressure 122/74 130/77 Pulse Oximetry 98 99 Oxygen Delivery Method Room Air Room Air BMI result Body Mass Index 31.7 Labs 08/23/25 15:37 08/26/25 07:46 Medications Medications Current Medications Acetaminophen (Acetaminophen 325 Mg Tablet) 650 mg PO Q6H PRN PRN Reason: Headache/Pain, Scale 1-10 Last Admin: 08/29/25 18:09 Dose: 650 mg Al Hydroxide/Mg Hydroxide (Magnesium Hydrox/Alum Hydrox 30 Ml Oral.Susp) 30 ml PO Q6H PRN PRN Reason: Heartburn/Nausea Albuterol Sulfate (Albuterol Sulfate 90 Mcg 8 Gm Inhaler) 2 puff INHALE RQ4H PRN PRN Reason: sob Last Admin: 08/28/25 21:21 Dose: 2 puff Bupropion HCl (Bupropion Hcl Xl 150 Mg Tab.Er.24h) 150 mg PO DAILY RAY Last Admin: 08/29/25 08:37 Dose: 150 mg Clotrimazole (Clotrimazole 1 % Cream 15 Gm Tube) 1 appl TOPICAL BID [facility]; Protocol Stop: 09/10/25 20:59 Last Admin: 08/29/25 22:04 Dose: 1 appl Ferrous Sulfate (Ferrous Sulfate 324 Mg Tablet.Dr) 324 mg PO DAILY [facility] Last Admin: 08/29/25 08:37 Dose: 324 mg Fluticasone Propionate (Fluticasone Propionate Nasal 16 Gm Recluse) 1 spray NOSTRIL-B DAILY [facility] Last Admin: 08/29/25 08:37 Dose: 1 spray Hydroxyzine HCl (Hydroxyzine Hcl 25 Mg Tablet) 25 mg PO Q6H PRN PRN Reason: Anxiety Last Admin: 08/29/25 10:19 Dose: 25 mg Magnesium Hydroxide (Milk Of Magnesia 30 Ml Oral.Susp) 30 ml PO DAILY PRN PRN Reason: Constipation Nicotine Polacrilex (Nicotine Polacrilex 2 Mg Gum) 4 mg BUCCAL Q2H PRN PRN Reason: Nicotine Cravings Olanzapine (Olanzapine 10 Mg Tablet) 10 mg PO BEDTIME [facility] Last Admin: 08/29/25 22:04 Dose: 10 mg Olanzapine (Olanzapine 5 Mg Tablet) 5 mg PO Q4H PRN PRN Reason: agitation/psychosis Last Admin: 08/29/25 15:20 Dose: 5 mg Oxcarbazepine (Oxcarbazepine 300 Mg Tablet) 600 mg PO BID [facility] Last Admin: 08/29/25 22:04 Dose: 600 mg Sertraline HCl (Sertraline Hcl 100 Mg Tablet) 100 mg PO DAILY [facility] Last Admin: 08/29/25 08:38 Dose: 100 mg Trazodone HCl (Trazodone Hcl 50 Mg Tablet) 150 mg PO BEDTIME [facility] Last Admin: 08/29/25 22:04 Dose: 150 mg Vitamin D (Cholecalciferol (Vitamin D3) 25 Mcg Tablet) 50 mcg PO DAILY [facility] Last Admin: 08/29/25 08:37 Dose: 50 mcg Allergies Allergies Allergy/AdvReac Type Severity Reaction Status Date / Time No Known Allergies Allergy Verified 08/23/25 15:24 Assessment & Plan Assessment & Plan (1) Bipolar disorder: Status: Acute Code(s): F31.9 - Bipolar disorder, unspecified (2) PTSD (post-traumatic stress disorder): Status: Acute Code(s): F43.10 - Post-traumatic stress disorder, unspecified (3) Cocaine use disorder: Status: Acute Code(s): F14.10 - Cocaine abuse, uncomplicated (4) Methamphetamine abuse: Status: Acute Code(s): F15.10 - Other stimulant abuse, uncomplicated Plan Patient is a 29-year-old male with history of bipolar disorder, PTSD, cocaine use d/o, methamphetamine use d/o, who presented to ER via ambulance due to bizarre behavior at home and his family calling 911. Plan: CV 15 minute safety checks Continue home medications Decrease Wellbutrin XL to 150mg PO daily with plan to taper off Obtain collateral Encourage groups Encourage medication compliance ? Referral to substance abuse program Discharge planning 08/27: Active on unit. social with select peers. Patient reports he is starting to feel better ; pt stated, I'm not mouthing off like when I first got here. I'm trying to intervene less . He reports auditory hallucinations that are minimal . denies SI/HI/VH. He reports sleeping well last night. continue tx plan. 08/28: Active on unit. social with peers. Patient reports feeling pleasant today; pt reports he plans on being medication compliant when he returns home. Plan for discharge home Sunday; pt aware. denies SI/HI/VH/AH. continue tx plan. 08/29: continue current management and treatment plan. 08/30: continue current management and treatment plan. Patient educated on: medication risk/benefits and substance abuse Reason for continued inpatient stay Substantial Risk for: inability to function and rapid decompensation Time Spent With Patient Time: Total time managing care of this patient today ____ minutes.
[2025-08-30] MEDS: Ferrous Sulfate 324 MG TABLET.DR PO (09:40)
[2025-08-30] MEDS: buPROPion HCl XL 150 MG TAB.ER.24H PO (09:41)
[2025-08-30] MEDS: Clotrimazole 1 % Cream 15 GM TUBE 1 APPL TOPICAL ×2 (09:43→20:50)
[2025-08-30 19:30] VITALS: BP 133/69; PULSE 108; RESP 17; TEMP 36.8; O2SAT 98
[2025-08-31 08:00] VITALS: BP 119/62; PULSE 72; RESP 16; TEMP 36.3; O2SAT 97
[2025-08-31] MEDS: Ferrous Sulfate 324 MG TABLET.DR PO (08:58)
[2025-08-31] MEDS: Clotrimazole 1 % Cream 15 GM TUBE 1 APPL TOPICAL (08:58)
[2025-08-31] MEDS: buPROPion HCl XL 150 MG TAB.ER.24H PO (08:58)
--- NOTE | 2025-08-31 09:22 | PM.PSYDC ---
DS: Providers Provider Date of Service: 08/31/25 Date of admission: 08/25/25 11:23 Date of discharge: 08/31/25 Primary care physician: [facility] Admitting clinician: Sagrario Coronado Attending physician on admission: Trav Talbert Attending physician on discharge: Trav Talbert Discharging clinician: Sagrario Coronado DS: Diagnosis Discharge Diagnosis (1) Bipolar disorder: Status: Acute (2) PTSD (post-traumatic stress disorder): Status: Acute (3) Cocaine use disorder: Status: Acute (4) Methamphetamine abuse: Status: Acute DS: Medications Discharge Medications Home Medications: Home Medications ?Medication ?Instructions ?Recorded ?Confirmed bupropion HCl 300 mg 24 hr tablet, 300 mg PO DAILY 08/23/25 08/23/25 extended release cholecalciferol (vitamin D3) 50 50 mcg PO DAILY 08/24/25 08/24/25 mcg (2,000 unit) tablet (Vitamin D3) dextroamphetamine-amphetamine ER 1 cap PO QAM 08/24/25 08/24/25 20 mg 24hr capsule,extend release (Adderall XR) ferrous fumarate 324 mg (106 mg 324 mg PO DAILY 08/24/25 08/24/25 iron) tablet Previous Rx's ?Medication ?Instructions ?Recorded albuterol sulfate 90 mcg/actuation 2 puff inhalation RQ4H PRN sob 30 02/20/24 aerosol inhaler (Ventolin HFA) days #6.7 grams hydroxyzine HCl 25 mg tablet 25 mg PO Q6H PRN Anxiety 30 days 02/20/24 #60 tabs olanzapine 10 mg tablet 10 mg PO BEDTIME 30 days #30 tabs 02/20/24 oxcarbazepine 600 mg tablet 600 mg PO BID 30 days #60 tabs 02/20/24 sertraline 100 mg tablet 100 mg PO DAILY 30 days #30 tabs 02/20/24 trazodone 150 mg tablet 150 mg PO BEDTIME 30 days #30 tabs 02/20/24 Mental Status Exam Mental Status Exam Narrative: Pt is alert and oriented; behavior is cooperative and calm; dressed in casual attire; mood is described as good ; eye contact appropriate; Speech is normal rate, volume and not pressured; thought process is organized; Thought content is on discharge; denies SI/HI/VH/AH. Data Data Completed and Pending Completed studies during hospitalization [Text1]: 08/26/25 08/26/25 07:46 15:16 Sodium 140 Potassium 4.1 Chloride 108 Carbon Dioxide 26 Anion Gap 10 L BUN 15 Creatinine 0.88 Estim Creat Clear Calc 144.6 Estimated GFR > 60 Random Glucose 112 Estimat Average Glucose 88 Hemoglobin A1c % 4.7 Calcium 9.1 Total Bilirubin 0.8 AST 18 ALT 25 Alkaline Phosphatase 92 Total Protein 7.3 Albumin 4.4 Triglycerides 127 Cholesterol 102 LDL Cholesterol, Calc 32 HDL Cholesterol 45 T.pallidum Ab (EIA) Nonreactive Hepatitis A IgM Ab Nonreactive Hep Bs Antigen Negative Hep Bs Antibody REACTIVE Hep B Core Total Ab Nonreactive Hepatitis C Ab (EIA) Nonreactive HIV 1&2 Ab/P24 Ag 4thGn Nonreactive DS: Summary Hospital Course Hospital Course: Patient is a 29-year-old male with history of bipolar disorder, PTSD, cocaine use d/o, methamphetamine use d/o, who presented to ER via ambulance due to bizarre behavior at home and his family calling 911. Per crisis report, patient presented to ER via ambulance secondary to his family calling 911 as patient was behaving erratically and not taking his medications since returning home from inpatient hospitalization. Patient was discharged from on 08/13/2025. Patient appeared to be responding to internal stimuli and thought blocking. He reported auditory and visual hallucinations and struggled to engage fully with assessment. Patient would answer questions and had periods of inappropriate laughter. He reports poor sleep. Patient stated he took mushrooms about a week ago and has been smoking marijuana and drinking rum daily since getting discharged. Patient did not report any suicidal or homicidal ideation. History of multiple inpatient psychiatric hospitalizations. Denies any history of SA/SIB. History of cocaine, crystal meth, mushrooms, marijuana and alcohol use. Utox positive for marijuana. During admission assessment, patient presents alert and oriented x3. Calm and cooperative. Patient reports that he was not taking his home medications due to not having anyone to take him to the pharmacy . Patient stated, I was sniffing Wellbutrin to make a replacement from cocaine. I haven't been smoking meth for 2 weeks. I took 3-4 mushrooms before I got here and have been smoking marijuana . Patient reports he would like to be restarted on his medications. Patient stated, I'll try my best to remember to take my meds. I understand taking the olanzapine can make a difference. I do want to heal . Patient reports auditory hallucinations all the time ; when asked to elaborate, patient stated, I hear things that I need to be aware of . He denies SI/HI/VH. Plan: CV 15 minute safety checks Continue home medications Decrease Wellbutrin XL to 150mg PO daily with plan to taper off Obtain collateral Encourage groups Encourage medication compliance ? Referral to substance abuse program Discharge planning Active on unit. social with select peers. Patient reports he is starting to feel better ; pt stated, I'm not mouthing off like when I first got here. I'm trying to intervene less . He reports auditory hallucinations that are minimal . denies SI/HI/VH. He reports sleeping well last night. continue tx plan. Active on unit. social with peers. Patient reports feeling pleasant today; pt reports he plans on being medication compliant when he returns home. Plan for discharge home Sunday; pt aware. denies SI/HI/VH/AH. continue tx plan. Patient reports feeling good and ready for discharge; denies SI/HI/VH/AH. Patient reports he plans on being medication compliant and following up with his outpatient providers. Status at Discharge Cognitive/behavioral status at discharge: Patient has insight and demonstrates good judgment in terms of wanting to pursue treatment. Patient has a safety plan that includes presenting to the closest ER or calling 911 if feeling unsafe. Functional status at discharge: independent ambulation Overall status at discharge: patient is back to baseline Time Spent with Patient Time attestation: Total time managing care of this patient today _20___ minutes. Time spent: Less than 30 minutes Discharge Plan Discharge Anticipated Discharge Date/Time: 08/31/25 12:00 Patient Disposition: Home, Self-Care Discharge Diagnosis: Bipolar d/o, PTSD, polysubstance use d/o Referrals: Terrance Cullen (ANNE MARIE) [Other] - 09/10/25 10:20 am [facility] [Primary Care Provider, Medical] - 1 Week Referral Note: 08-31-25 Please contact your PCP to schedule your follow up appt within 7-10 days of discharge. No release on file Discharge Medications: Continued albuterol sulfate [Ventolin HFA] 90 mcg/actuation Hfa Aerosol Inhaler 2 puff inhalation RQ4H PRN (Reason: sob) 30 Days Qty: 6.7 1RF hydroxyzine HCl 25 mg Tablet 25 mg PO Q6H PRN (Reason: Anxiety) 30 Days Qty: 60 1RF trazodone 150 mg tablet 150 mg PO BEDTIME 30 Days Qty: 30 1RF ferrous fumarate 324 mg (106 mg iron) Tablet 324 mg PO DAILY cholecalciferol (vitamin D3) [Vitamin D3] 50 mcg (2,000 unit) Tablet 50 mcg PO DAILY sertraline 100 mg tablet 100 mg PO DAILY 30 Days Qty: 30 0RF olanzapine 10 mg Tablet 10 mg PO BEDTIME 30 Days Qty: 30 0RF oxcarbazepine 600 mg tablet 600 mg PO BID 30 Days Qty: 60 0RF Discontinued bupropion HCl 300 mg tablet extended release 24 hr 300 mg PO DAILY dextroamphetamine-amphetamine [Adderall XR] 20 mg capsule,extended release 24hr 1 cap PO QAM Discharge Orders: Discharge Order (Routine); Ordered 08/31/25 Ordered By: Sagrario Coronado Diet: Regular diet Activity on Discharge: As tolerated Stand Alone Forms: Patient Portal Discharge page, Community Support Print Language: Mongolian Care Plan Goals: Maintain mood and safe behaviors Take medications as prescribed Continue to pursue sobriety Practice coping skills Continue with outpatient providers and reach out to them as needed Health Concerns: Mood stability and behaviors Sobriety Plan of Treatment: Follow up with your PCP, psychiatric provider and other outpatient providers regarding above concerns Take medications as prescribed Assessment: Patient has insight and demonstrates good judgment in terms of wanting to pursue treatment. Patient has a safety plan that includes presenting to the closest ER or calling 911 if feeling unsafe.
[2025-08-31] MEDS: Naloxone HCl Nasal TAKE HOME 4 MG SPRAY 8 MG NOSTRILALT (11:19)
--- NOTE | 2025-08-31 11:54 | PC.NURSE ---
Hardy engages easily. Reports feeling ready for discharge. States he feels natural . Continues with depression rating depression 06/21. Denies SI/HI plan or intent at this time. Endorses on going paranoia stating it comes and goes . Discharge paperwork reviewed reports understanding. Discharge medications reviewed reports understanding. Follow up appointments reviewed reports understanding. Narcan given to patient as take home, reports understanding. Crisis numbers provided to patient. All belongings taken with patient.
== END 2025-08-31 11:49 | disposition home or self-care (01) | DRG 753 ==
LOC: HO.ED 15:29 → HO.PADLT16 08-25 12:26
PROVIDERS: Nurse Practitioner Family; Physician Assistant Medical; Admitting Provider Registered Nurse; Emergency Provider Emergency Medicine; Responsible Provider Registered Nurse; Visit Provider Psychiatry & Neurology Psychiatry
DX: F31.9 Bipolar disorder, unspecified (principal); F14.10 Cocaine abuse, uncomplicated; F43.10 Post-traumatic stress disorder, unspecified; F15.10 Other stimulant abuse, uncomplicated; J45.909 Unspecified asthma, uncomplicated; Z20.822 Contact with and (suspected) exposure to COVID-19; Z79.899 Other long term (current) drug therapy
CPT/HCPCS: 36415; 80053; 80061; 80143; 80179; 80307; 81003; 83036; 85025; 86704; 86706; 86709; 86780; 86803; 87340; 87389; 87635; 93005; 99285; S9485

== ENCOUNTER → 2025-08-23 15:22 | Outpatient (BNV) | payer MEDICAID, SELFPAY | PROVIDERS: Admitting Provider Registered Nurse; Emergency Provider Emergency Medicine; Visit Provider Internal Medicine Cardiovascular Disease | DX: Z13.6 Encounter for screening for cardiovascular disorders (principal) | CPT/HCPCS: 93010 ==

== ENCOUNTER → 2025-08-25 11:23 | Outpatient (BNV) | payer OTHER, SELFPAY | PROVIDERS: Admitting Provider Registered Nurse; Emergency Provider Emergency Medicine; Responsible Provider Registered Nurse; Visit Provider Psychiatry & Neurology Psychiatry | DX: F31.9 Bipolar disorder, unspecified (principal); F43.10 Post-traumatic stress disorder, unspecified; F14.10 Cocaine abuse, uncomplicated; F15.10 Other stimulant abuse, uncomplicated | CPT/HCPCS: 99231; 99232 ==

== ENCOUNTER → 2025-08-25 11:23 | Outpatient (BNV) | payer MEDICAID, SELFPAY | PROVIDERS: Admitting Provider Registered Nurse; Emergency Provider Emergency Medicine; Visit Provider Nurse Practitioner Family | DX: J45.909 Unspecified asthma, uncomplicated (principal) | CPT/HCPCS: 99221; 99499 ==